=== PATIENT | female | born 1940 | race Caucasian/White ===

== ENCOUNTER 2016-09-06 23:31 | Inpatient (IN) | payer OTHER ==
[~2016-09-06] VITALS: Ht 157.5 cm; Wt 69.6 kg
[~2016-09-06 23:31] MED LIST: ALBUTEROL0.09 MG/A1 INH; AMOXICILLIN250 M3 PO; APIX2.5 PO; ASPIRIN CHILDRE81 MG PO; CALCIUM + D 6001 TAB PO; CARDIZEM CD 12120 MG PO; CEPHALEXIN500 M1 PO; CINNAMON500 MG PO; CLOPIDOGREL75 MG PO; COZAAR25 M1 PO; ELIQUIS5 M1 PO; ELIQUIS5 MG PO; FERROUS SULFAT325 M3 G TUBE; FLOVENT HF0.22 MG/Ac INH; GLUCOSAMINE & C1 CAP PO; KEFLEX500 MG PO; LANOXIN-DIGO0.125 MG PO; LASIX20 MG PO; LASIX40 MG PO; LEVAQUIN500 MG PO; LEVOTHYROXIN0.125 M1 PO; METOPROLOL SUC100 MG PO; MONTELUKAST SOD10 MG PO; MULTIVITAMIN1 TAB PO; NORVASC 5MG TAB5 MG PO; POTASSIUM GLUC595 MG PO; PREDNISONE 20MG20 MG PO; PULMICORT FLE180 MCG INH; SYNTHROID150 MCG PO; TOPROL XL 100100 MG PO; ULTRAM(MONOGRAP50 MG PO
--- NOTE | 2016-09-06 23:40 | ED DYSPNEA/ASTHMA COMPLAINT ---
History of Present Illness General Chief Complaint: Dyspnea (COPD, CHF, Other) Stated Complaint: DIFF BREATHING Source: patient, old records, EMS, W10 Exam Limitations: patient's age, confusion Vital Signs & Intake/Output Vital Signs & Intake/Output Vital Signs Date Time Temp Pulse Resp B/P Pulse O2 O2 Flow FiO2 Ox Delivery Rate 09/07 0348 96.5 110 22 123/81 100 Nasal 2.0L Cannula 09/07 0307 94.8 92 26 152/96 99 Nasal 2.0L Cannula 09/07 0300 99 Nasal 2.0L Cannula 09/07 0204 97.6 102 26 104/60 99 Nasal 2.0L Cannula 09/06 2336 96.0 107 20 143/83 99 Room Air ED Intake and Output 09/07 0000 09/06 1200 Intake Total Output Total Balance Patient 146 lb Weight Allergies Coded Allergies: STATINS (Intermediate, ACHEY HEAD TO TOE "PAIN ALL OVER BODY" 09/06/16) acetaminophen (Mild, ABDOMINAL PAIN 09/06/16) Reconcile Medications Acetaminophen 500 MG TABLET 975 MG G TUBE Q8H PAIN (Reported) Albuterol Sulfate (Ventolin Hfa) 90 MCG HFA.AER.AD 2 PUF INH Q4-6 PRN PRN SOB (Reported) Apixaban (Eliquis) 5 MG TABLET 1 TAB PO BID AFIB (Reported) Calcium Carbonate (Antacid) 200 MG CALCIUM (500 MG) TAB.CHEW 500 MG PO BID SUPPLEMENT (Reported) Cholecalciferol (Vitamin D3) 1,000 UNIT TABLET 1 TAB G TUBE DAILY SUPPLEMENT (Reported) Chondroitin Sulf/Glucosamine (Glucosamine & Chondroitin) 1 CAP CAP 1 CAP PO DAILY SUPPLEMENT (Reported) Reason to Stop at ADM: no alternative in the hospital Digoxin 125 MCG TABLET 65 MCG G TUBE DAILY HEART (Reported) HOLD IF HR LESS THAN 60 [DUONEB] SOB (Reported) X48 HRS, D/C ON 09/09/16. Ferrous Sulfate 325 MG (65 MG IRON) TABLET 325 MG G TUBE DAILY SUPPLEMENT ( Reported) Fluticasone Propionate (Flovent Hfa) 0.22 MG/Actuation EMERSON 2 PUFF INH BID COPD /ASTHMA (Reported) 220 MCG PER PUFF Furosemide 20 MG TABLET 1 TAB G TUBE DAILY CHF (Reported) Gabapentin 300 MG CAPSULE 1 CAP G TUBE QPM NEUROPATHY (Reported) Levothyroxine Sodium (Synthroid) 150 MCG TABLET 100 MCG PO DAILY HYPOTHYROID (Reported) Lorazepam (Ativan) 0.5 MG TABLET 1 TAB PO Q8H PRN ANXIETY (Reported) Metoprolol Tartrate 25 MG TABLET 0.5 TAB G TUBE BID HTN (Reported) Montelukast Sodium 10 MG TABLET 1 TAB PO DAILY ALLERGIES (Reported) Multivitamin (Multi-Delyn) 5 ML LIQUID 5 ML G TUBE DAILY SUPPLEMENT (Reported ) Triage Nurses Notes Reviewed? yes Onset: Gradual Duration: day(s):, waxing and waning Timing: recent history Severity: moderate Activities at Onset: none Prior Episodes/Possible Cause: occasional episodes Modifying Factors: Improves With: rest. Associated Symptoms: irregular breathing HPI: 76 yo woman h/o afib on eliquis and digoxin, presents with irregular breathing and dyspnea at the [facility]. She maintained normal 02 saturation. She is otherwise well. She took a neb and feels better. Past History Travel History Traveled to [place] past 21 day No Medical History Any Pertinent Medical History? 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 No Review of Systems Review of Systems Constitutional: Reports: no symptoms. EENTM: Reports: no symptoms. Respiratory: Reports: no symptoms. Cardiovascular: Reports: no symptoms. GI: Reports: no symptoms. Genitourinary: Reports: no symptoms. Musculoskeletal: Reports: no symptoms. Skin: Reports: no symptoms. Neurological/Psychological: Reports: no symptoms. Hematologic/Endocrine: Reports: no symptoms. Immunologic/Allergic: Reports: no symptoms. All Other Systems: Reviewed and Negative Physical Exam Physical Exam General Appearance: well developed/nourished, no apparent distress, alert, awake , comfortable Head: atraumatic, normal appearance Eyes: Bilateral: normal appearance. Ears, Nose, Throat: normal pharynx, normal ENT inspection Neck: normal inspection, supple, full range of motion Respiratory: normal breath sounds, chest non-tender, no respiratory distress, quiet respiration, lungs clear Cardiovascular: regular rate/rhythm Gastrointestinal: normal bowel sounds, soft, non-tender, no organomegaly Extremities: normal inspection, normal capillary refill, normal range of motion, no edema Neurologic/Psych: no motor/sensory deficits, awake, alert, oriented x 3 Skin: intact, normal color, warm/dry Core Measures ACS in differential dx? No Severe Sepsis Present: No Septic Shock Present: No Progress Differential Diagnosis: asthma, bronchitis, CHF, COPD, pneumonia Plan of Care: Orders Procedure Date/time Status Nothing by Mouth 09/07 B Active Patient Data 09/07 322 Active Saline Lock 09/07 214 Active Misc Message 09/07 214 Active ED Holding Orders 09/07 214 Active Vital Signs 09/07 214 Active Code Status 09/07 214 Active Admit to inpatient 09/07 213 Active TROPONIN LEVEL 09/07 210 Active EKG 09/07 210 Active BLOOD CULTURE 09/07 209 Active BLOOD CULTURE 09/07 0207 Active ARTERIAL BLOOD GAS (GEN) 09/07 0206 Complete TROPONIN LEVEL 09/06 2342 Complete PARTIAL THROMBOPLASTIN TIME 09/06 2342 Complete PROTHROMBIN TIME 09/06 2342 Complete DIGOXIN 09/06 2342 Complete COMPREHENSIVE METABOLIC PANEL 09/06 2342 Complete CBC WITHOUT DIFFERENTIAL 09/06 2341 Complete EKG 09/06 2342 Active Laboratory Tests 09/07/16 0245: pH 7.41, pCO2 32 L, pO2 101 H, HCO3 20 L, ABG O2 Sat (Measured) 97.0, P-50 ( Temp Corrected) Y, Carboxyhemoglobin 0.3 L, O2 Concentration % 2 LPM, Temperature 97.6, O2 Delivery Method N/C, Phlebotomy Draw Site RIGHT RADIAL 09/07/16 0038: Anion Gap 14, Estimated GFR 40 L, BUN/Creatinine Ratio 22.3, Glucose 129 H, Calcium 9.3, Total Bilirubin 0.7, AST 17, ALT 24, Alkaline Phosphatase 70, Troponin I 0.04, Total Protein 6.7, Albumin 3.5, Globulin 3.2, Albumin/Globulin Ratio 1.1, PT 20.3 H, INR 1.95 H, APTT 34, CBC w Diff NO MAN DIFF REQ, RBC 4.59, MCV 97.5, MCH 31.7 H, RDW 13.2, MPV 9.5, Gran % 72.1, Lymphocytes % 15.7 L, Monocytes % 7.1, Eosinophils % 4.9, Basophils % 0.2, Absolute Granulocytes 5.7, Absolute Lymphocytes 1.2, Absolute Monocytes 0.6, Absolute Eosinophils 0.4, Absolute Basophils 0, PUBS MCHC 32.5 L, Digoxin 0.5 L Microbiology 09/07 248 BLOOD: Blood Culture - RECD 09/07 237 BLOOD: Blood Culture - RECD Diagnostic Imaging: Viewed by Me: Radiology Read. Discussed w/RAD: Radiology Read. Radiology Impression: head ct... old right mca infarct CXR Impression: RIGHT ATELECTASIS VS PNEUMONIA Initial ED EKG: atrial fibrillation, no change from prior. Comments: PATIENT: CHACHO ALEXANDER PRESENT AGE: 76 PATIENT ACCOUNT NO: [id number] : 39 LOCATION: [facility] ORDERING PHYSICIAN: TRE MOFFETT MD SERVICE DATE: 09/07/16 EXAM TYPE: CAT - CT HEAD WO IV CONTRAST EXAMINATION: CT HEAD WITHOUT CONTRAST CLINICAL INFORMATION: Change in mental status COMPARISON: 10/19/2015 TECHNIQUE: Contiguous axial imaging was performed from the skull base to vertex without intravenous contrast. DLP: 529 mGy-cm. FINDINGS: There is no evidence of acute intracranial hemorrhage or territorial infarction. No abnormal mass effect or midline shift is seen. There is a change since the prior study, with new hypoattenuation involving the right MCA territory, most prominent in the right insular region extending superiorly. Peripheral hypoattenuation in the high right parietal lobe noted. The appearance is consistent with a chronic right MCA infarct, although Since 10/19/2015. Hypoattenuation extends along the right cerebral peduncle to the midbrain. Reddy to white matter differentiation is otherwise well preserved. Chronic right cerebellar hemisphere infarct. No extra-axial fluid collections are identified. No hydrocephalus. Proportional prominence of the ventricles and sulcal spaces is consistent with mild volume loss. There is no extraocular dilatation of the right lateral ventricle. The osseous structures and soft tissues are normal. The mastoid air cells and visualized portions of the paranasal sinuses are well aerated. IMPRESSION: No acute intracranial pathology. New appearance of a right MCA territory infarct since 10/19/2015. This does not have an acute appearance. DICTATED BY: JESE APARICIO MD DATE/TIME DICTATED:09/07/16301 SYSTEMS SPECIALIST:RICHA DATE/TIME TRANSCRIBED:09/07/16301 CONFIDENTIAL, DO NOT COPY WITHOUT APPROPRIATE AUTHORIZATION. <Electronically signed in Other Vendor System> SIGNED BY: JESE APARICIO MD 09/07 PATIENT: CHACHO ALEXANDER PRESENT AGE: 76 PATIENT ACCOUNT NO: [id number] : 39 LOCATION: [facility] ORDERING PHYSICIAN: TRE MOFFETT MD SERVICE DATE: 09/06/16 EXAM TYPE: RAD - XRY-PORTABLE CHEST XRAY EXAMINATION: XR PORTABLE CHEST CLINICAL INFORMATION: Dyspnea COMPARISON: 03/16/2016 TECHNIQUE: Portable view of the chest was obtained. FINDINGS: Left chest wall dual-lead pacer is unchanged. The lungs are well expanded. Increased hazy right basilar opacity. Limited visualization at the left lung base due to the prominence of the cardiac silhouette. No definite pleural effusion. No edema. No pneumothorax. The cardiomediastinal silhouette remains prominent. IMPRESSION: Increased hazy right basilar opacity could represent atelectasis or pneumonia. DICTATED BY: JESE APARICIO MD DATE/TIME DICTATED:09/07/1616 SYSTEMS SPECIALIST:RICHA DATE/TIME TRANSCRIBED:09/07/1616 CONFIDENTIAL, DO NOT COPY WITHOUT APPROPRIATE AUTHORIZATION. <Electronically signed in Other Vendor System> SIGNED BY: JESE APARICIO MD 09/07 0022 Departure Departure Disposition: STILL A PATIENT Condition: Stable Clinical Impression Primary Impression: Pneumonia Secondary Impressions: Hypothermia, Sepsis, Unresponsiveness Referrals: JESS OWUSU MD (PCP/Family) Departure Forms: Customer Survey General Discharge Information Comments 09/07/16, 2:12am... pt had episode of unresponsiveness, requiring sternal rub to awaken her.... vitals now stable... will check head ct. Pt also with pneumonia, dyspnea, elevated bun/cr ratio, not eating or drinking...Pt requires 02 support, iv fluids, abx. Admission Note Spoke With[facility] DE[facility]ADILLA[facility] Documentation of Exam: Documentation of any treatments & extenuating circumstances including Concerns Regarding Discharge (functional status, medication knowledge or non-compliance, living conditions, etc.) that warrant an admission rather than observation: pt with episode of unresponsiveness in context of her pneumonia, elevated bun/cr ratio. pt requires iv fluids, monitor, rule out, iv abx. pt also hypothermic, requiring warm blankets. Critical Care Note Critical Care Note Critical Care Time: 30-74 min
--- NOTE | 2016-09-06 23:43 | NUR ---
TRIAGE: BIBA FROM ECF, ECF REPORTING DIFF BREATHING W/ PERIODS OF APNEA S/P EATING DINNER TONIGHT. WAS GIVEN 1 DUONEB BY ECF THOUGH REPORTING LUNGS CTA. LUNGS CTA ON ARRIVAL, NO ACUTE RESP DISTRESS NOTED. O2:98%RA, ON 2LC FOR COMFORT, 100% 2LNC. PATIENT DENIES ANY COMPLAINTS AT THIS TIME. IV #22 PREHOSP RH. ALERT AND ORIENTED. PREHOSP FINGERSTICK: 163. HX L SIDE WEAKNESS FROM CVA, FULL ASSIST BASELINE.
[2016-09-06] MEDS ORDERED: ATIVAN0.5 M1 PO (23:54)
--- NOTE | 2016-09-06 23:55 | NUR ---
EKG DONE AND SHOWN TO DR. MOFFETT.
[2016-09-06] MEDS ORDERED: DUONEB NEB (23:57)
[2016-09-06] MEDS ORDERED: VENTOLIN HFA18 GM INH (23:59)
--- NOTE | 2016-09-06 23:59 | NUR ---
XRAY AT BEDSIDE.
[2016-09-07] MEDS ORDERED: DIGOXIN125 MCG G TUBE (00:09)
[2016-09-07] MEDS ORDERED: FUROSEMIDE20 M1 G TUBE (00:12)
[2016-09-07] MEDS ORDERED: METOPROLOL TART25 M1 G TUBE (00:13)
[2016-09-07] MEDS ORDERED: MULTI-DELYN5 ML G TUBE (00:14)
[2016-09-07] MEDS ORDERED: VITAMIN D31000 UNI2 G TUBE (00:15)
[2016-09-07] MEDS ORDERED: GABAPENTIN300 M2 G TUBE (00:16)
[2016-09-07] MEDS ORDERED: ANTACID200 MG PO (00:17)
[2016-09-07] MEDS ORDERED: ACETAMINOPHEN500 M4 G TUBE (00:18)
--- NOTE | 2016-09-07 00:22 | RADIOLOGY REPORT ---
EXAMINATION: XR PORTABLE CHEST CLINICAL INFORMATION: Dyspnea COMPARISON: 03/16/2016 TECHNIQUE: Portable view of the chest was obtained. FINDINGS: Left chest wall dual-lead pacer is unchanged. The lungs are well expanded. Increased hazy right basilar opacity. Limited visualization at the left lung base due to the prominence of the cardiac silhouette. No definite pleural effusion. No edema. No pneumothorax. The cardiomediastinal silhouette remains prominent. IMPRESSION: Increased hazy right basilar opacity could represent atelectasis or pneumonia.
--- NOTE | 2016-09-07 00:41 | NUR ---
PATIENT DIFFICULT STICK, BLOODWORK OBTAINED AND SENT TO LAB (SHANNON, SHANEKA HERNADEZ, BLUE).
[2016-09-07 00:51] LABS: ABSOLUTE BASOPHIL COUNT 0 /CUMM (0.0-0.2); ABSOLUTE EOSINOPHIL COUNT 0.4 /CUMM (0.0-0.7); ABSOLUTE GRANULOCYTE CT 5.7 /CUMM (1.4-6.5); ABSOLUTE LYMPH COUNT 1.2 /CUMM (1.2-3.4); ABSOLUTE MONOCYTE COUNT 0.6 /CUMM (0.10-0.60); BASOPHIL % 0.2 % (0.0-2.0); EOSINOPHIL % 4.9 % (0-5); GRANULOCYTE % 72.1 % (42.2-75.2); HEMATOCRIT 44.7 % (37-47); MEAN CORPUSCULAR HGB 31.7 PG (27.0-31.0); MEAN CORPUSCULAR HGB CONC 32.5 G/DL (33.0-37.0); MEAN CORPUSCULAR VOLUME 97.5 FL (81.0-99.0); MEAN PLATELET VOLUME 9.5 FL (7.4-10.4); PLATELET COUNT 201 /CUMM (130-400); RBC DISTRIBUTION WIDTH 13.2 % (11.5-14.5); RED BLOOD CELL CT 4.59 /CUMM (4.20-5.40); WHITE BLOOD CELL COUNT 7.9 /CUMM (4.8-10.8)
[2016-09-07 01:00] LABS: PT 20.3 SEC (9.4-12.5); PTT 34 SEC (25-37)
--- NOTE | 2016-09-07 01:58 | NUR ---
ALL RESULTS OBTAINED, AWAITING POC FROM .
--- NOTE | 2016-09-07 02:09 | NUR ---
NS 500ML INFUSING AT PRESENT PER EMAR. TOLERATING WELL. MD INFORMED THAT PATIENT NOTED W/ APPROX 15 SECONDS UNRESPONSIVNESS TO STERNAL RUB, PATIENT THEN NOTED W/ SPONTANEOUS ALERTNESS TO BASELINE W/ FREQUENT MOANING. MD AT BEDSIDE W/ THIS RN FOR REEVAL/ DISCUSSION OF POC AND ADMISSION W/ FAMILY AND PATIENT. PATIENT RR 26, AFEBRILE. O2:99%RA, HR: 102 IRREGULAR W/ NO P-WAVES NOTED, INTERMITTENT PVS NOTED.
--- NOTE | 2016-09-07 02:46 | NUR ---
HOSPITAL IV EST #22 RIGHT FOREARM. BOOD CULTURES AND REPEAT TROP OBTAINED AND SENT TO LAB. ABD OBTAINED BY RESP THERAPIST SURAJ. PATIENT BEING TAKEN TO CT BY STRETCHER.
--- NOTE | 2016-09-07 03:07 | NUR ---
RETURNED FROM CT BY STRETCHER. ROCEPHIN INFUSING PER EMAR. TOLERATING WELL. TEMP 94.8, AWARE. WARM BLANKETS APPLIED.
--- NOTE | 2016-09-07 03:08 | CT SCAN REPORT ---
EXAMINATION: CT HEAD WITHOUT CONTRAST CLINICAL INFORMATION: Change in mental status COMPARISON: 10/19/2015 TECHNIQUE: Contiguous axial imaging was performed from the skull base to vertex without intravenous contrast. DLP: 529 mGy-cm. FINDINGS: There is no evidence of acute intracranial hemorrhage or territorial infarction. No abnormal mass effect or midline shift is seen. There is a change since the prior study, with new hypoattenuation involving the right MCA territory, most prominent in the right insular region extending superiorly. Peripheral hypoattenuation in the high right parietal lobe noted. The appearance is consistent with a chronic right MCA infarct, although Since 10/19/2015. Hypoattenuation extends along the right cerebral peduncle to the midbrain. Reddy to white matter differentiation is otherwise well preserved. Chronic right cerebellar hemisphere infarct. No extra-axial fluid collections are identified. No hydrocephalus. Proportional prominence of the ventricles and sulcal spaces is consistent with mild volume loss. There is no extraocular dilatation of the right lateral ventricle. The osseous structures and soft tissues are normal. The mastoid air cells and visualized portions of the paranasal sinuses are well aerated. IMPRESSION: No acute intracranial pathology. New appearance of a right MCA territory infarct since 10/19/2015. This does not have an acute appearance.
--- NOTE | 2016-09-07 03:16 | NUR ---
EKG IN PROGRESS. WARM BLANKETS APPLIED PER MD, WILL RECHECK TEMP AT 0345.
--- NOTE | 2016-09-07 03:27 | NUR ---
MD GUERIN AWARE TWO SST TUBES OBTAINED FOR REPEAT TROP ARE "GROSSLY HEMOLYZED" PER LAB. PER MD GUERIN, CAN WAIT TO REDRAW AT THIS TIME.
--- NOTE | 2016-09-07 03:38 | NUR ---
2ND. EKG DONE AND SHOWN TO DR. MOFFETT.
--- NOTE | 2016-09-07 03:48 | NUR ---
MD RICHARDSON AT BEDSIDE FOR EVAL. CURRENT TEMP 96.5 S/P WARM BLANKETS X 30 MINUTES.
--- NOTE | 2016-09-07 03:52 | History & Physical ---
MARI PDAILLA,[facility] 09/07/16 0351: General Information and HPI MD Statement: I have seen and personally examined CHACHO FORBES and documented this H&P. The patient is a 76 year old F who presented with a patient stated chief complaint of shortness of breath and apneic spells. 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 Patient is minimally verbal and provides little information, therefore, most of the history was obtained by calling [facility]. Patient was reported by roommate who noticed that the patient was experiencing shortness of breath. It is also reported that the patient daughter had earlier complained patient was not looking well. Nursing staff at the facility reported that patient had an apneic spell, became unresponsive and needed sternal rub. No reports of fever chills or recent infection, is given by the facility nursing staff. While in the ED, patient had another episode of unresponsiveness which not respond to sternal rub, and spontaneously resolved within a few seconds. At baseline patient is full assist due to left-sided paralysis, with intact mentation and verbally communicates effectively and is on nectar puree diet. Allergies/Medications Allergies: Coded Allergies: STATINS (Intermediate, ACHEY HEAD TO TOE "PAIN ALL OVER BODY" 09/06/16) acetaminophen (Mild, ABDOMINAL PAIN 09/06/16) Home Med list Acetaminophen 500 MG TABLET 975 MG G TUBE Q8H PAIN (Reported) Albuterol Sulfate (Ventolin Hfa) 90 MCG HFA.AER.AD 2 PUF INH Q4-6 PRN PRN SOB (Reported) Apixaban (Eliquis) 5 MG TABLET 1 TAB PO BID AFIB (Reported) Calcium Carbonate (Antacid) 200 MG CALCIUM (500 MG) TAB.CHEW 500 MG PO BID SUPPLEMENT (Reported) Cholecalciferol (Vitamin D3) 1,000 UNIT TABLET 1 TAB G TUBE DAILY SUPPLEMENT (Reported) Chondroitin Sulf/Glucosamine (Glucosamine & Chondroitin) 1 CAP CAP 1 CAP PO DAILY SUPPLEMENT (Reported) Reason to Stop at ADM: no alternative in the hospital Digoxin 125 MCG TABLET 65 MCG G TUBE DAILY HEART (Reported) HOLD IF HR LESS THAN 60 [DUONEB] SOB (Reported) X48 HRS, D/C ON 09/09/16. Ferrous Sulfate 325 MG (65 MG IRON) TABLET 325 MG G TUBE DAILY SUPPLEMENT ( Reported) Fluticasone Propionate (Flovent Hfa) 0.22 MG/Actuation EMERSON 2 PUFF INH BID COPD /ASTHMA (Reported) 220 MCG PER PUFF Furosemide 20 MG TABLET 1 TAB G TUBE DAILY CHF (Reported) Gabapentin 300 MG CAPSULE 1 CAP G TUBE QPM NEUROPATHY (Reported) Levothyroxine Sodium (Synthroid) 150 MCG TABLET 100 MCG PO DAILY HYPOTHYROID (Reported) Lorazepam (Ativan) 0.5 MG TABLET 1 TAB PO Q8H PRN ANXIETY (Reported) Metoprolol Tartrate 25 MG TABLET 0.5 TAB G TUBE BID HTN (Reported) Montelukast Sodium 10 MG TABLET 1 TAB PO DAILY ALLERGIES (Reported) Multivitamin (Multi-Delyn) 5 ML LIQUID 5 ML G TUBE DAILY SUPPLEMENT (Reported ) Past History Travel History Traveled to [place] past 21 day No Medical History Neurological: CVA, cva-left sided paralysis EENT: NONE Cardiovascular: AFIB, CAD, CHF, hypertension, hyperlipidemia, myocardial infarction, PCI to LAD and LCx with JUANJOSE in 2007 Respiratory: asthma Gastrointestinal: G-TUBE Hepatic: NONE Renal: chronic kidney disease Musculoskeletal: MUSCLE WEAKNESS Psychiatric: NONE Endocrine: hypothyroidism Blood Disorders: anemia Cancer(s): NONE 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 Ambulation: independent, cane Review of Systems Review of Systems Constitutional: Denies: chills, diaphoresis, fever. Exam & Diagnostic Data Last 24 Hrs of Vital Signs/I&O Vital Signs Date Time Temp Pulse Resp B/P Pulse O2 O2 Flow FiO2 Ox Delivery Rate 09/07 605 97.5 103 18 119/77 99 Nasal 2.0L Cannula 09/07 0435 97.3 109 22 98/53 95 Nasal 2.0L Cannula 09/07 0348 96.5 110 22 123/81 100 Nasal 2.0L Cannula 09/07 0307 94.8 92 26 152/96 99 Nasal 2.0L Cannula 09/07 0300 99 Nasal 2.0L Cannula 09/07 0204 97.6 102 26 104/60 99 Nasal 2.0L Cannula 09/06 2336 96.0 107 20 143/83 99 Room Air Intake & Output 09/07 1600 09/07 0800 09/07 0000 Intake Total 510 Output Total Balance 510 Intake, IV 510 Patient 66.451 kg Weight Physical Exam General Appearance Alert, Mild Distress, orineted to person and place Skin No Significant Lesion HEENT Atraumatic, Dry mucous membranes Neck Supple, +2 Carotid Pulse wo Bruit Lymphatic Cervical nl Cardiovascular Regular Rate, Normal S1, Normal S2 Lungs Clear to Auscultation Abdomen Normal Bowel Sounds, Soft, No Tenderness Neurological left-sided weakness noted on upper and lower extremities. 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 Impression * Dyspnea : Atelectasis versus aspiration pneumonia as possible cause of patient dyspnea. Hypothyroidism could be possible cause. Cardiac etiology ACS versus worsening CHF. * Apneic spells: Drug-induced? Patient has had history of stroke, however was right MCA and not brainstem. CTA of head negative for any acute stroke however rule out brainstem pathology will require MRI. * Hypothermia (transient) Plan * Admit to telemetry for close monitoring * Will keep nothing by mouth for now, pending swallow eval * Will start Unasyn for possible aspiration * Urine culture, sputum culture, and blood cultures * Will obtain troponins to rule out ACS * Will give to hydration of 500 ML bag of normal saline 75ml/hr * Will hold off Lasix and metoprolol drop in blood pressure * Wi'll hold off digoxin for now and await cardiology recommendation * Possible defibrillator interrogation * Will obtain cardiology As Ranked By This Provider Problem List: 1. Altered mental status Core Measures/Miscellaneous Acute Coronary Syndrome ACS Diagnosis: No Cerebrovascular Accident CVA/TIA Diagnosis: No Congestive Heart Failure CHF Diagnosis: No Venous Thromboembolism VTE Risk Factors: Age > 40 VTE Prophylaxis Ordered Inpt: Pharm- Eliquis No Mech VTE prophylaxis d/t: No contraindications No VTE Pharm Prophylaxis d/t: No contraindications VTE Diagnosis: No VTE Type: NONE VTE Confirmed by (Test): NONE Severe Sepsis Severe Sepsis Present: No Septic Shock Septic Shock Present: No Miscellaneous Documentation Attending Case Discussed With: MD CELINA RICHARDSON. 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 Per RN at [place], patient has been eating by mouth nectar thick liquids and ground food. Patient mumbling words, speech unclear, but she understands and responds to few questions appropriately. Hypothermic in ER, tachycardic, borderline BP, sats 99% on 2L. She appears very dry, no leukocytosis, CXR s/o right basilar opacity. Head CT old infarct. While in ER, she had an episode of unresponsiveness - no response to sternal rub, but she woke up few seconds later. She was not connected to the monitor so unclear what rhythm she was in. Last echo (January 2016): EF 20-25%. EKG: Afib, PVCs. Admitting to Telemetry for cardiac evaluation, serial EKG and troponin, Echo, Cardio evaluation and possible AICD interrogation. Digoxin levels are low. Holding digoxin, Lasix and metoprolol until Cardio eval. Panculture, gentle IV fluids, IV Unasyn for aspiration pneumonia. NPO, swallow eval in AM. TRC nebs and incentive spirometry. DVT ppx Eliquis. DNR/JavierBrandon MEHTAKATHYGABE 09/07/16 1028: Resident Review Statement Resident Statement: examined this patient, discussed with phd internship, agreed with phd internship, reviewed EMR data (avail), discussed with nursing, reviewed images Other Findings: Mrs. Forbes is a 76-year-old lady with a PMH of atrial fibrillation on Eliquis, CAD, CHF, HTN, HLD, [place] with PCI to LAD and left circumflex (2007), chronic kidney disease, gastric tube secondary to chronic dysphagia was twice a day a from [facility] due to noticeable dyspnea at the facility. Records indicated from EMS: Patient experienced an episode of apnea with difficulty to arousal requiring sternal rub. No indication at this time of recent illnesses, changes in medication, fevers, chills. At her baseline she is a dependent of full assist, feeding via oral pure with records indicating previously on gastric feeding. VS: BP 143/83, HR 107, RR 20, SPO2 99% on 2 LNC, T 96.0 Pertinent labs: WBC 7.9, H&H 14.6/44.7 sodium 145, BUN/CR 29/1.3, glucose 129 INR: 1.95 Serial troponins: 0.04, 0.05 UA: Pending Digoxin: 0.5L CXR: Increased hazy right basilar opacity could represent atelectasis or pneumonia Head CT: No acute intracranial pathology. New appearance of a right MCA territory infarct since 10/19/2015. This does not have an acute appearance. Problem list: 1. Altered mental status: DDX includes infectious etiologies versus TIA/CVA 2. SIRS criteria 3. Pneumonia 4. A. fib 5. History of dysphagia 6. HFrEF: Echocardiogram January 2016 EF 20-25%, abnormal septal motion consistent with LBBB. RV systolic pressure 50 mmHg Plan: * Admit to telemetry for continuous cardiac monitoring. Serial EKG/troponin at 700 hours, 1300 hrs. * Obtain a repeat echocardiogram and have cardiology follow patient. Digoxin held at this time * Follow up blood, urine, sputum cultures, lactic acid. We'll start the patient on Unasyn for DDX of aspiration pneumonia * Restart patient's metoprolol once blood pressure is more stable * Nothing by mouth at this time. Follow-up swallow evaluation for recommendations on fluid/solids consistency * VT prophylaxis: Eliquis * Diet: Nothing by mouth at this time pending swallow evaluation * CODE STATUS: DNR/DNI per transfer records AM team: Follow-up magnesium, phosphorus, proBNP
--- NOTE | 2016-09-07 04:16 | NUR ---
PATIEN REPORTING NEED TO MAKE BM. ASSISTED ONTO BEDPAN BY THIS RN, AMANDO FORRESTER AND KENN FORRESTER.
--- NOTE | 2016-09-07 04:31 | NUR ---
PATIENT MADE MODERATE AMOUNT FORMED LIGHT BROWN STOOL INTO BEDPAN. ALERT AND SPEAKING W/ CLEARER SPEECH AT THIS TIME, REPORTING R SHOULDER PAIN. PILLOW PLACED FOR SUPPORT UNDER R SHOULDER. PATIENT CHANGED FROM R SIDE LYING TO L SIDE LYING.
--- NOTE | 2016-09-07 06:45 | NUR ---
NS INFUING AT 75ML/HR PER EMAR. TOLERATING WELL. PATIENT SLEEPING SOUNDLY AT THIS TIME. HR:103 AFIB ON MONITOR.
--- NOTE | 2016-09-07 06:55 | Admission Certification ---
Admission Certification Certification Statement - As attending physician, I certify that at the time of - admission, based on clinical presentation, severity of - symptoms, need for further diagnostic testing and - therapeutic interventions, and risk of adverse outcomes - without in-hospital treatment, in my clinical assessment, - this patient requires an acute hospital stay for a minimum - of two nights or longer. I have also considered psychsocial - factors such as support system, advanced age, financial - issues, cognitive issues, and failed out-patient treatments, - past re-admission history, safety of patient, and lack of - compliance as applicable. Specific rationale supporting this admission is: Unresponsive episode, aspiration pneumonia.
--- NOTE | 2016-09-07 07:02 | NUR ---
UNASYN 3G INFUSING AT 200ML/HR PER EMAR. TOLERATING WELL. REPEAT BLOODWORK IN PROGRESS BY KENN HOUSE
--- NOTE | 2016-09-07 07:07 | NUR ---
2AM TROP REDRAWN AND SENT TO LAB.
--- NOTE | 2016-09-07 09:08 | NUR ---
ROAD BUILDER FROM [place] # [phone] ERICK RATLIFF CALLED STATING PT CAN BE TREATED WITH IVF/IV ANTIBIOTICS AT [place], PHONE NUMBER GIVEN TO RESIDENT ALEX # [address] BUILDER REGARDING PLAN OF CARE/DISPOSITION.
--- NOTE | 2016-09-07 10:29 | NUR ---
PT SLEEPING, REPOSITIONED ON TO RIGHT SIDE (FROM LEFT), PT MOANS ON OCCASSION BUT IS NOT OPENING EYES OR VERBAL. IVF'S CHANGED TO D5NS AT 75ML/HR ORDERED. VITALS REMAIN STABLE, O2 99% ON 2L NC. AWAITING BED ASSIGNMENT FOR ADMISSION OR DISPOSTION FROM [place]/HOUSE STAFF.
--- NOTE | 2016-09-07 10:38 | NUR ---
PHARMACY CALLED REGARDING PO MEDICATIONS ORDERED AT 1018 THIS AM, PT DOES HAVE G-TUBE, SPOKE WITH PHARMACIST LYLE WHO WILL CONTACT RESIDENT ALEX # [id number].
--- NOTE | 2016-09-07 11:21 | NUR ---
SPOKE WITH PHARMACIST, MEDS CRUSHED AND DILUTED ORDERED, GIVEN VIA G-TUBE WITHOUT DIFFICULTY. PT SLEEPING COMFORTABLY, REMAINS UNRESPONSIVE AND NON-VERBAL AT THIS TIME.
--- NOTE | 2016-09-07 11:28 | Cons- Cardiology ---
General Information and HPI Consulting Request Date of Consult: 09/07/16 Requested By: SAMUEL MARVIN MD Reason for Consult: afib, CHF Source of Information: old records Exam Limitations: unable to give history History of Present Illness: This is a 76-year-old female with a past medical history of ischemic cardiomyopathy, CHF, aortic stenosis, atrial fibrillation on anticoagulation, CAD with PCI in 2007 (LAD/LCx), myocardial infarct by nuclear imaging, choledocholithiasis/cholangitis, AICD, CKD, acute CVA (03/2016) s/p PEG tube, and statin intolerance who was sent to [facility] from [facility] reported decrease in mental status and possible episode of unresponsiveness/apnea. On my interview with the patient she was unable to provide any history in the HPI is obtained from the medical record. There are some reports that the patient was noticed to be tachypneic. On my interview with the patient she was minimally responsive but intermittently following simple commands. Per reports she was taking oral pured diet at [place]. Allergies/Medications Allergies: Coded Allergies: STATINS (Intermediate, ACHEY HEAD TO TOE "PAIN ALL OVER BODY" 09/06/16) acetaminophen (Mild, ABDOMINAL PAIN 09/06/16) Home Med List: Acetaminophen 500 MG TABLET 975 MG G TUBE Q8H PAIN (Reported) Albuterol Sulfate (Ventolin Hfa) 90 MCG HFA.AER.AD 2 PUF INH Q4-6 PRN PRN SOB (Reported) Apixaban (Eliquis) 5 MG TABLET 1 TAB PO BID AFIB (Reported) Calcium Carbonate (Antacid) 200 MG CALCIUM (500 MG) TAB.CHEW 500 MG PO BID SUPPLEMENT (Reported) Cholecalciferol (Vitamin D3) 1,000 UNIT TABLET 1 TAB G TUBE DAILY SUPPLEMENT (Reported) Chondroitin Sulf/Glucosamine (Glucosamine & Chondroitin) 1 CAP CAP 1 CAP PO DAILY SUPPLEMENT (Reported) Reason to Stop at ADM: no alternative in the hospital Digoxin 125 MCG TABLET 65 MCG G TUBE DAILY HEART (Reported) HOLD IF HR LESS THAN 60 [DUONEB] SOB (Reported) X48 HRS, D/C ON 09/09/16. Ferrous Sulfate 325 MG (65 MG IRON) TABLET 325 MG G TUBE DAILY SUPPLEMENT ( Reported) Fluticasone Propionate (Flovent Hfa) 0.22 MG/Actuation EMERSON 2 PUFF INH BID COPD /ASTHMA (Reported) 220 MCG PER PUFF Furosemide 20 MG TABLET 1 TAB G TUBE DAILY CHF (Reported) Gabapentin 300 MG CAPSULE 1 CAP G TUBE QPM NEUROPATHY (Reported) Levothyroxine Sodium (Synthroid) 150 MCG TABLET 100 MCG PO DAILY HYPOTHYROID (Reported) Lorazepam (Ativan) 0.5 MG TABLET 1 TAB PO Q8H PRN ANXIETY (Reported) Metoprolol Tartrate 25 MG TABLET 0.5 TAB G TUBE BID HTN (Reported) Montelukast Sodium 10 MG TABLET 1 TAB PO DAILY ALLERGIES (Reported) Multivitamin (Multi-Delyn) 5 ML LIQUID 5 ML G TUBE DAILY SUPPLEMENT (Reported ) Current Medications: Current Medications Sig/Jake Start time Last Medication Dose Route Stop Time Status Admin Acetaminophen 650 MG Q6P PRN 09/07 0715 AC PO Ampicillin Sodium/ 0 .STK-MED ONE 09/07 0655 DC Sulbactam Sodium .ROUTE Ampicillin Sodium/ 3,000 MG Q6 09/07 0600 AC 09/07 Sulbactam Sodium IV 0701 Sodium Chloride 100 ML Apixaban 5 MG BID 09/07 1018 AC PO Azithromycin 500 MG ONCE ONE 09/07 0215 DC 09/07 Sodium Chloride 250 ML IV 09/07 0314 0319 Calcium Carbonate 500 MG BID 09/07 1018 AC PO Ceftriaxone Sodium 0 .STK-MED ONE 09/07 0254 DC .ROUTE Ceftriaxone Sodium 1,000 MG ONCE ONE 09/07 0215 DC 09/07 IV 09/07 0216 0305 Cholecalciferol 1,000 IU DAILY 09/07 1019 AC PO Dextrose/Sodium 1,000 ML ONCE ONE 09/07 0945 AC 09/07 Chloride IV 09/07 2304 1000 Fluticasone 2 PUF BID 09/07 1022 AC Propionate INH Levothyroxine Sodium 0.1 MG DAILY AC 09/07 1038 AC PO Levothyroxine Sodium 0.1 MG DAILY 09/07 1023 DC PO Lorazepam 0.5 MG Q8H PRN 09/07 1030 AC PO 09/14 1029 Montelukast Sodium 10 MG QPM 09/07 2200 AC PO Oxycodone/ 1 TAB Q6P PRN 09/07 0815 DC Acetaminophen PO Oxycodone/ 2 TAB Q6P PRN 09/07 0815 DC Acetaminophen PO Sodium Chloride 500 ML .Q6H40M 09/07 0515 AC 09/07 IV 09/07 1154 0645 Sodium Chloride 500 ML BOLUS ONE 09/07 0200 DC 09/07 IV 09/07 0259 0209 Review of Systems Review of Systems: Unable to obtain Past History Travel History Traveled to [place] past 21 day No Medical History Neurological: CVA, cva-left sided paralysis EENT: NONE Cardiovascular: AFIB, CAD, CHF, hypertension, hyperlipidemia, myocardial infarction, PCI to LAD and LCx with JUANJOSE in 2007 Respiratory: asthma Gastrointestinal: G-TUBE Hepatic: NONE Renal: chronic kidney disease Musculoskeletal: MUSCLE WEAKNESS Psychiatric: NONE Endocrine: hypothyroidism Blood Disorders: anemia Cancer(s): NONE 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 Ambulation: independent, cane Exam & Diagnostic Data Vital Signs and I&O Vital Signs Date Time Temp Pulse Resp B/P Pulse O2 O2 Flow FiO2 Ox Delivery Rate 09/07 1031 96.8 95 18 100/63 99 Nasal 2.0L Cannula 09/07 0606 97.5 103 18 119/77 99 Nasal 2.0L Cannula 09/07 0435 97.3 109 22 98/53 95 Nasal 2.0L Cannula 09/07 0348 96.5 110 22 123/81 100 Nasal 2.0L Cannula 09/07 0307 94.8 92 26 152/96 99 Nasal 2.0L Cannula 09/07 0300 99 Nasal 2.0L Cannula 09/07 0204 97.6 102 26 104/60 99 Nasal 2.0L Cannula 09/06 2336 96.0 107 20 143/83 99 Room Air Intake & Output 09/07 1600 09/07 0800 09/07 0000 09/06 1600 09/06 0800 09/06 0000 Intake Total 510 Output Total Balance 510 Intake, IV 510 Patient 146 lb Weight Physical Exam: General: Minimally responsive without obvious distress Eyes: No obvious scleral icterus. HEENT: No jugular venous distention or abnormal jugular venous pulsations. Cardiovascular: Normal intensity S1/S2. Irregular. One out of 6 systolic murmur. ICD noted. Respiratory: Decreased air entry on the right Abdomen: Soft, with no guarding Musculoskeletal: No clubbing or cyanosis noted, no edema Skin: Warm Neurologic: Limited exam, decreased spontaneous movements on the left Labs/Hardy Results: Laboratory Tests 09/07 09/07 09/07 0704 0245 0038 Blood Gas pH (7.35 - 7.45 PH) 7.41 pCO2 (35 - 45 TORR) 32 L pO2 (80 - 100 TORR) 101 H HCO3 (21 - 28 MEQ/L) 20 L ABG O2 Sat (Measured) (>96.0 %) 97.0 P-50 (Temp Corrected) Y Carboxyhemoglobin (1.5 - 5.0 %) 0.3 L O2 Concentration % 2 LPM Temperature (97.0 - 100.0 FARH) 97.6 O2 Delivery Method N/C Chemistry Sodium (137 - 145 mmol/L) 145 Potassium (3.5 - 5.1 mmol/L) 4.7 Chloride (98 - 107 mmol/L) 105 Carbon Dioxide (22 - 30 mmol/L) 26 Anion Gap (5 - 16) 14 BUN (7 - 17 mg/dL) 29 H Creatinine (0.5 - 1.0 mg/dL) 1.3 H Estimated GFR (>60 ml/min) 40 L BUN/Creatinine Ratio (7 - 25 %) 22.3 Glucose (65 - 99 mg/dL) 129 H Calcium (8.4 - 10.2 mg/dL) 9.3 Phosphorus (2.5 - 4.5 mg/dL) Pending Magnesium (1.6 - 2.3 mg/dL) Pending Total Bilirubin (0.2 - 1.3 mg/dL) 0.7 AST (14 - 36 U/L) 17 ALT (9 - 52 U/L) 24 Alkaline Phosphatase (<127 U/L) 70 Troponin I (< 0.11 ng/ml) 0.05 0.04 [id number] Pept (<125 pg/mL) Pending Total Protein (6.3 - 8.2 g/dL) 6.7 Albumin (3.5 - 5.0 g/dL) 3.5 Globulin (1.9 - 4.2 gm/dL) 3.2 Albumin/Globulin Ratio (1.1 - 2.2 %) 1.1 Coagulation PT (9.4 - 12.5 SEC) 20.3 H INR (0.90 - 1.19) 1.95 H APTT (25 - 37 SEC) 34 Hematology CBC w Diff NO MAN DIFF REQ WBC (4.8 - 10.8 /CUMM) 7.9 RBC (4.20 - 5.40 /CUMM) 4.59 Hgb (12.0 - 16.0 G/DL) 14.6 Hct (37 - 47 %) 44.7 MCV (81.0 - 99.0 FL) 97.5 MCH (27.0 - 31.0 PG) 31.7 H RDW (11.5 - 14.5 %) 13.2 Plt Count (130 - 400 /CUMM) 201 MPV (7.4 - 10.4 FL) 9.5 Gran % (42.2 - 75.2 %) 72.1 Lymphocytes % (20.5 - 51.1 %) 15.7 L Monocytes % (1.7 - 9.3 %) 7.1 Eosinophils % (0 - 5 %) 4.9 Basophils % (0.0 - 2.0 %) 0.2 Absolute Granulocytes (1.4 - 6.5 /CUMM) 5.7 Absolute Lymphocytes (1.2 - 3.4 /CUMM) 1.2 Absolute Monocytes (0.10 - 0.60 /CUMM) 0.6 Absolute Eosinophils (0.0 - 0.7 /CUMM) 0.4 Absolute Basophils (0.0 - 0.2 /CUMM) 0 PUBS MCHC (33.0 - 37.0 G/DL) 32.5 L Miscellaneous Phlebotomy Draw Site RIGHT RADIAL Toxicology Digoxin (0.8 - 2.0 ng/mL) 0.5 L Diagnostic Data EKG Results Tracing was personally reviewed and shows atrial fibrillation at a rate of 106 bpm with mild interventricular conduction delay CXR Results Increased hazy right basilar opacity could represent atelectasis or pneumonia. Other Results No acute intracranial pathology. New appearance of a right MCA territory infarct since 10/19/2015. This does not have an acute appearance. Assessment/Plan Assessment/Plan 1. Altered mental status 2. Possible pneumonia, question aspiration 3. CKD 4. Atrial fibrillation on Eliquis 5. Acute CVA 03/2016 (while off AC for GI procedure) tx at [place], s/p PEG tube for dysphagia 6. History of systolic congestive heart failure with myocardial scar/ischemic cardiomyopathy 7. CAD with PCI to the LAD/LCx 2007 8. AICD in situ ([employer]) 9. History of choledocholithiasis/cholangitis 10. History of statin intolerance Suspect the patient's current decreased mental status may be due to encephalopathy, ?infection/possible pneumonia. Head CT without new event (prior CVA noted). No evidence of decompensated CHF at this time, agree with gentle hydration. Antibiotics per the medical team. Would continue full anticoagulation without interruption, if unable to give Eliquis then bridge with Heparin or Lovenox. No evidence of digoxin toxicity, would resume for rate control. Resume low-dose beta katina as BP tolerates. Had previously been on low-dose ARB therapy but currently not listed on her med rec. Doubt any acute new arrhythmic events but I will arrange to have her AICD interrogated. Echocardiogram has been ordered and I will follow-up those results. Troponins are within normal limits. ACS is not currently suspected. Aneesh Hall MD [facility] Consult Acknowledgment - Thank you for your consult request.
--- NOTE | 2016-09-07 11:29 | NUR ---
MOVED TO ROOM # 20, REPORT GIVEN TO OSCAR ERWIN.
--- NOTE | 2016-09-07 12:47 | NUR ---
SPEECH THERAPY: ORDERS FOR SWALLOW EVAL RECEIVED, CHART REVIEWED AND D/W RN AND MD. PER DR. DUARTE, CANCEL SWALLOW EVAL PT IS NOT SUFFICIENTLY ALERT/AWAKE TO PARTICIPATE. PT HAD BEEN EATING GROUND MECH SOFT AND NECTAR THICK LIQUIDS AT THE [facility] BUT IS CURRENTLY NPO. SHE HAS A G-TUBE WHICH MAY BE USED FOR FEEDING UNTIL PT IS ABLE TO PARTICIPATE IN SWALLOW EVAL/PO TRIALS.
--- NOTE | 2016-09-07 13:00 | Cons- Pulmonary ---
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 Patient is minimally verbal and provides little information, therefore, most of the history was obtained by calling [facility]. Patient was reported by roommate who noticed that the patient was experiencing shortness of breath. It is also reported that the patient daughter had earlier complained patient was not looking well. Nursing staff at the facility reported that patient had an apneic spell, became unresponsive and needed sternal rub. No reports of fever chills or recent infection, is given by the facility nursing staff. While in the ED, patient had another episode of unresponsiveness which not respond to sternal rub, and spontaneously resolved within a few seconds. At baseline patient is full assist due to left-sided paralysis, with intact mentation and verbally communicates effectively and is on nectar puree diet. Allergies/Medications Allergies: Coded Allergies: STATINS (Intermediate, ACHEY HEAD TO TOE "PAIN ALL OVER BODY" 09/06/16) acetaminophen (Mild, ABDOMINAL PAIN 09/06/16) Home Med List: Acetaminophen 500 MG TABLET 975 MG G TUBE Q8H PAIN (Reported) Albuterol Sulfate (Ventolin Hfa) 90 MCG HFA.AER.AD 2 PUF INH Q4-6 PRN PRN SOB (Reported) Apixaban (Eliquis) 5 MG TABLET 1 TAB PO BID AFIB (Reported) Calcium Carbonate (Antacid) 200 MG CALCIUM (500 MG) TAB.CHEW 500 MG PO BID SUPPLEMENT (Reported) Cholecalciferol (Vitamin D3) 1,000 UNIT TABLET 1 TAB G TUBE DAILY SUPPLEMENT (Reported) Chondroitin Sulf/Glucosamine (Glucosamine & Chondroitin) 1 CAP CAP 1 CAP PO DAILY SUPPLEMENT (Reported) Reason to Stop at ADM: no alternative in the hospital Digoxin 125 MCG TABLET 65 MCG G TUBE DAILY HEART (Reported) HOLD IF HR LESS THAN 60 [DUONEB] SOB (Reported) X48 HRS, D/C ON 09/09/16. Ferrous Sulfate 325 MG (65 MG IRON) TABLET 325 MG G TUBE DAILY SUPPLEMENT ( Reported) Fluticasone Propionate (Flovent Hfa) 0.22 MG/Actuation EMERSON 2 PUFF INH BID COPD /ASTHMA (Reported) 220 MCG PER PUFF Furosemide 20 MG TABLET 1 TAB G TUBE DAILY CHF (Reported) Gabapentin 300 MG CAPSULE 1 CAP G TUBE QPM NEUROPATHY (Reported) Levothyroxine Sodium (Synthroid) 150 MCG TABLET 100 MCG PO DAILY HYPOTHYROID (Reported) Lorazepam (Ativan) 0.5 MG TABLET 1 TAB PO Q8H PRN ANXIETY (Reported) Metoprolol Tartrate 25 MG TABLET 0.5 TAB G TUBE BID HTN (Reported) Montelukast Sodium 10 MG TABLET 1 TAB PO DAILY ALLERGIES (Reported) Multivitamin (Multi-Delyn) 5 ML LIQUID 5 ML G TUBE DAILY SUPPLEMENT (Reported ) Review of Systems Review of Systems Constitutional: Reports: see HPI. 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 Ambulation: independent, cane Exam & Diagnostic Data Last 24 Hrs of Vital Signs/I&O Vital Signs Date Time Temp Pulse Resp B/P Pulse O2 O2 Flow FiO2 Ox Delivery Rate 09/07 1031 96.8 95 18 100/63 99 Nasal 2.0L Cannula 09/07 0606 97.5 103 18 119/77 99 Nasal 2.0L Cannula 09/07 0435 97.3 109 22 98/53 95 Nasal 2.0L Cannula 09/07 0348 96.5 110 22 123/81 100 Nasal 2.0L Cannula 09/07 0307 94.8 92 26 152/96 99 Nasal 2.0L Cannula 09/07 0300 99 Nasal 2.0L Cannula 09/07 0204 97.6 102 26 104/60 99 Nasal 2.0L Cannula 09/06 2336 96.0 107 20 143/83 99 Room Air Intake & Output 09/07 1600 09/07 0800 09/07 0000 Intake Total 510 Output Total Balance 510 Intake, IV 510 Patient 146 lb Weight Last 48 Hrs of Labs/Hardy: Laboratory Tests 09/07/16 0704: Troponin I 0.05 09/07/16 0245: pH 7.41, pCO2 32 L, pO2 101 H, HCO3 20 L, ABG O2 Sat (Measured) 97.0, P-50 ( Temp Corrected) Y, Carboxyhemoglobin 0.3 L, O2 Concentration % 2 LPM, Temperature 97.6, O2 Delivery Method N/C, Phlebotomy Draw Site RIGHT RADIAL 09/07/16 0038: Anion Gap 14, Estimated GFR 40 L, BUN/Creatinine Ratio 22.3, Glucose 129 H, Calcium 9.3, Phosphorus 4.3, Magnesium 1.8, Total Bilirubin 0.7, AST 17, ALT 24, Alkaline Phosphatase 70, Troponin I 0.04, [id number]-S-[id number] Pept 45457 H, Total Protein 6.7, Albumin 3.5, Globulin 3.2, Albumin/Globulin Ratio 1.1, PT 20.3 H, INR 1.95 H, APTT 34, CBC w Diff NO MAN DIFF REQ, RBC 4.59, MCV 97.5, MCH 31.7 H, RDW 13.2, MPV 9.5, Gran % 72.1, Lymphocytes % 15.7 L, Monocytes % 7.1, Eosinophils % 4.9, Basophils % 0.2, Absolute Granulocytes 5.7, Absolute Lymphocytes 1.2, Absolute Monocytes 0.6, Absolute Eosinophils 0.4, Absolute Basophils 0, PUBS MCHC 32.5 L, Digoxin 0.5 L Assessment/Plan Impression/Plan: Physical Exam General Appearance Alert, Mild Distress, orineted to person and place Skin No Significant Lesion HEENT Atraumatic, Dry mucous membranes Neck Supple, +2 Carotid Pulse wo Bruit Lymphatic Cervical nl Cardiovascular Regular Rate, Normal S1, Normal S2 Lungs Clear to Auscultation Abdomen Normal Bowel Sounds, Soft, No Tenderness Neurological left-sided weakness noted on upper and lower extremities. Extremities No Clubbing, No Cyanosis Vascular Pulses Symmetrical This is a 75-year-old lady with severe systolic dysfunction of the heart, severe cardiomegaly, paroxysmal atrial fibrillation, recurrent heart failure in the past, aortic stenosis, hypothyroidism, hypertension, hyperlipidemia, Sig gall stone pancreatitis with choledocholithiasis with enterococci bacteremia in the past with s/p ercp, pt on eloquis for afib with Coronary artery disease, status post JUANJOSE, Unfortunately had developed a larged rt mca stroke few months ago admitted to [facility] with left sided paralysis with total care and on peg tube with on off po feeding, Total care in snf, Now has * Altered mental status appears multifactorial (ongoing small vessel disease, vs new stroke, sepsis appears unlikely ) * SIg on off apnea and waxing and waning of consiousness with with aspiration vs dehydration, rule out sepsis With transient hypothermia (pt hypothyroid) * Previous biliary sepsis with choledocholithiasis with normal lfts now * Prob sig central apnea without hypercarbia * PRob ongoing small vessel disease * Ischemic cardiomyopathy status post AICD, with director career lad and lcx 2007 * Atrial fibrillation on Eliquis * Essential hypertension * Moderate aortic stenosis by echocardiogram * H/o Celiac disease * Chronic systolic heart failure stable * CKD with mild worsening renal failure * Hypothyroid on supp * Chronic venous insuff * Sig valvular heart disease * Asthma stable REC Cont antibiotics St cath with ua and c and s Abd ultrasound to eval biliary tract NPO for now, will start tube feeds in am Hold further swallow eval Use g tube for all the meds Check random cortisol, free t4, tsh Cont all the cardiac meds Maintainece ivf with d5 .45 ns at 60 cc per hour Keep hob up ECHO, today Cardio eval appretiated Rpt ct of the head in 2 days to eval for any new stroke WIll follow PT is dnr and dni with no sig aggresive care Prog poor Discussed with daughter and plan as above Consult Acknowledgment - Thank you for your consult request.
[2016-09-07 13:06] VITALS: BP 110/63
--- NOTE | 2016-09-07 13:42 | NUR ---
MULTIPLE UNSUCCESSUFL ATTEMPTS TO DRAW TROPONIN. PT SEEN BY DR DUARTE, AWARE OF CHANGING NEURO STATUS--FROM MIN/UNRESPONSIVE TO FOLLOWING BASIC COMMANDS AND SLURRED SPEECH--STATING HE SPOKE WITH PT'S DAUGHTER AND PT WILL BE CHANGED TO QUARRY SUPERVISOR DIMENSION STONE IF NO SIGNIFICANT IMPROVEMENT.
--- NOTE | 2016-09-07 13:59 | NUR ---
AICD INTERROGATION IN PROGRESS
--- NOTE | 2016-09-07 14:14 | NUR ---
PT TO US
--- NOTE | 2016-09-07 14:36 | NUR ---
PT ADMITTED TO ROOM 180-1 FLOOR WILL CALL WHEN READY
--- NOTE | 2016-09-07 14:50 | NUR ---
TROP OBTAINED AND SENT AFTER MULTIPLE ATTEMPTS. SON AT BEDSIDE. PT WAS LETHARGIC/MIN RESPONSIVE, WHEN SHE HEARD SON'S VOICE BECAME ALERT, CRYING AND SPEAKING CLEARLY .
--- NOTE | 2016-09-07 15:00 | ULTRASOUND REPORT ---
EXAMINATION: US ABDOMEN COMPLETE CLINICAL INFORMATION: Lethargy and decreased mental status. Evaluate for biliary tract pathology.. COMPARISON: Abdomen ultrasound from 03/14/2015 and 02/18/2016 TECHNIQUE: Real-time imaging of the abdominal viscera. FINDINGS: PANCREAS: The pancreas is partially obscured by bowel gas. The visualized portions of the pancreatic head and neck are unremarkable. ABDOMINAL AORTA: There is atherosclerotic calcification of the wall of the proximal abdominal aorta. INFERIOR VENA CAVA: Visualized portions are normal. LIVER: Liver has normal size, contour and echotexture. A 1.1 x 1.4 x 1.1 cm simple hepatic cyst is present superior to the gallbladder fossa. No dilated intrahepatic ducts are seen. GALLBLADDER: Gallbladder contains multiple calculi and sludge. Gallbladder wall is approximately 5-6 mm thick. There is no pericholecystic fluid. The communications technologist reports inability to assess for a Abbott's sign due to patient's nonverbal status. COMMON BILE DUCT: Normal in caliber measuring 0.5 cm in diameter. RIGHT KIDNEY: The cortex of the right kidney is diffusely atrophied. The kidney measures 7.2 cm in length. A 2.5 x 2.3 x 2 cm simple cyst is present within the interpolar region. No hydronephrosis or nephrolithiasis. LEFT KIDNEY: Left kidney measures 10.7 cm in length. 6.9 x 5 x 5.1 cm simple cortical cyst arises from the left lower pole. No hydronephrosis or nephrolithiasis. SPLEEN: Normal. The spleen measures 10 cm in maximum dimension. FREE FLUID: None. IMPRESSION: Gallbladder contains multiple stones and sludge, and gallbladder wall remains abnormally thickened. These findings were present on 02/18/2016. The communications technologist reports uncertainty regarding a Abbott's sign due to patient's nonverbal status. Therefore, cholecystitis is considered possible. If clinically warranted, pursue hepatobiliary imaging to determine whether the cystic duct is obstructed. The common bile duct is incompletely visualized but the visualized proximal portion is 0.5 cm, compared to 1.3 cm on 02/18/2016.
--- NOTE | 2016-09-07 15:22 | NUR ---
PER [employer] REP AICD IS FUNCTIONING NORMALLY
--- NOTE | 2016-09-07 15:58 | NUR ---
RETURNED CALL TO GET REPORT, ON HOLD WITH NO ANSWER. PLEASE CALL [phone] WHEN AVAILABLE TO GIVE REPORT. THANK YOU.
--- NOTE | 2016-09-07 16:06 | NUR ---
STRAIGHT CATH, URINE TRIO SENT, REPOSITION, INCONT URINE/STOOL, CLEANED AND CHANGED.
--- NOTE | 2016-09-07 16:23 | NUR ---
REPORT CALLED TO [facility] [address], BED IS READY, TRANSPORT CALLED.
[2016-09-07 17:25] VITALS: BP 106/70
--- NOTE | 2016-09-07 19:48 | NUR ---
AT APPROXIMATELY 1645 PT BROUGHT TO ROOM ON 2L NC; 22 IN THE RF; 22 IN THE RW; PT ALERT AND CONFUSED; PT ORIENTED TO ROOM; TELE MONITOR PLACED; NO QUESTIONS OR COMPLAINTS AT THIS TIME; WILL CONT TO MONITOR
[2016-09-07 23:00] VITALS: BP 124/80
--- NOTE | 2016-09-08 05:44 | NUR ---
AT 0544 PT HAD A THREE BEAT RUN OF VTACH. MD BOCANEGRA NOTIFIED.
--- NOTE | 2016-09-08 06:27 | PN- Housestaff ---
Subjective Follow-up For: AMS Biliary Sepsi Cholecystitis Subjective: Ms Pastor was seen and examined this morning. Resting comfortably in bed. Appears more alert and awake compared to previous interaction at the emergency department. Patient continues to experience general chest discomfort and shortness of breath. Patient is not on any supplemental oxygen. Patient denies any complaints overnight. She continues to experience left-sided weakness owing to previous CVA. Patient denies any fever, chills, nausea, vomiting. Review of Systems Constitutional: Reports: see HPI. Objective Last 24 Hrs of Vital Signs/I&O Vital Signs Date Time Temp Pulse Resp B/P Pulse O2 O2 Flow FiO2 Ox Delivery Rate 09/08 0000 96 Nasal 2.0L Cannula 09/07 2300 98.2 113 20 124/80 96 Nasal 2.0L Cannula 09/07 2141 Nasal 2.0L Cannula 09/07 2117 113 124/80 09/07 1915 106 132/84 09/07 1725 98.0 96 18 106/70 95 Nasal 2.0L Cannula 09/07 1700 99 Nasal 2.0L Cannula 09/07 1513 99 Nasal 2.0L Cannula 09/07 1505 99 Nasal 2.0L Cannula 09/07 1317 96.0 92 18 110/63 09/07 1306 96.0 92 18 110/63 99 Nasal 2.0L Cannula 09/07 1031 96.8 95 18 100/63 99 Nasal 2.0L Cannula Intake & Output 09/08 0800 09/08 0000 09/07 1600 Intake Total 410 Output Total 100 Balance 310 Intake, IV 370 Intake, Oral 0 Intake, Tube 40 Irrigant Number 1 Bowel Movements Output, Urine 100 Physical Exam General Appearance: Alert, Oriented X3 Lungs: Clear to Auscultation Abdomen: Normal Bowel Sounds, Soft, No Tenderness Neurological: Left Sided Weakness Upper and Lower Extremity. Right Sided strength 5/5 Extremities: No Edema Vascular: Pulses Symmetrical Last 24 Hrs of Lab/Hardy Results Last 24 Hrs of Labs/Mics: Laboratory Tests 09/08/16 0607: Anion Gap 15, Estimated GFR 40 L, BUN/Creatinine Ratio 19.2, Phosphorus 4.3, Magnesium 1.6, Digoxin 0.4 L 09/07/16 1604: Urine Color YEL, Urine Clarity HAZY H, Urine pH 6.0, Ur Specific [place] >= 1.030, Urine Protein >=300 H, Urine Ketones NEG, Urine Nitrite NEG, Urine Bilirubin NEG, Urine Urobilinogen 0.2, Ur Leukocyte Esterase MOD H, Ur Microscopic SEDIMENT EXAMINED, Urine RBC 3-5, Urine WBC PACKD H, Urine Hemoglobin MOD H, Urine Glucose NEG 09/07/16 1446: Troponin I 0.03 Microbiology 09/07 1604 URINE ROUT: Urine Culture - RECD Orders Radiology Findings: PATIENT: CHACHO ALEXANDER PRESENT AGE: 76 PATIENT ACCOUNT NO: [id number] : 39 LOCATION: [facility] ORDERING PHYSICIAN: ALEX STODDARD MD SERVICE DATE: 09/07/16 EXAM TYPE: US - US-COMPLETE ABDOMEN EXAMINATION: US ABDOMEN COMPLETE CLINICAL INFORMATION: Lethargy and decreased mental status. Evaluate for biliary tract pathology.. COMPARISON: Abdomen ultrasound from 03/14/2015 and 02/18/2016 TECHNIQUE: Real-time imaging of the abdominal viscera. FINDINGS: PANCREAS: The pancreas is partially obscured by bowel gas. The visualized portions of the pancreatic head and neck are unremarkable. ABDOMINAL AORTA: There is atherosclerotic calcification of the wall of the proximal abdominal aorta. INFERIOR VENA CAVA: Visualized portions are normal. LIVER: Liver has normal size, contour and echotexture. A 1.1 x 1.4 x 1.1 cm simple hepatic cyst is present superior to the gallbladder fossa. No dilated intrahepatic ducts are seen. GALLBLADDER: Gallbladder contains multiple calculi and sludge. Gallbladder wall is approximately 5-6 mm thick. There is no pericholecystic fluid. The surgical scrub technologist reports inability to assess for a Abbott's sign due to patient's nonverbal status. COMMON BILE DUCT: Normal in caliber measuring 0.5 cm in diameter. RIGHT KIDNEY: The cortex of the right kidney is diffusely atrophied. The kidney measures 7.2 cm in length. A 2.5 x 2.3 x 2 cm simple cyst is present within the interpolar region. No hydronephrosis or nephrolithiasis. LEFT KIDNEY: Left kidney measures 10.7 cm in length. 6.9 x 5 x 5.1 cm simple cortical cyst arises from the left lower pole. No hydronephrosis or nephrolithiasis. SPLEEN: Normal. The spleen measures 10 cm in maximum dimension. FREE FLUID: None. IMPRESSION: Gallbladder contains multiple stones and sludge, and gallbladder wall remains abnormally thickened. These findings were present on 02/18/2016. The surgical scrub technologist reports uncertainty regarding a Abbott's sign due to patient's nonverbal status. Therefore, cholecystitis is considered possible. If clinically warranted, pursue hepatobiliary imaging to determine whether the cystic duct is obstructed. The common bile duct is incompletely visualized but the visualized proximal portion is 0.5 cm, compared to 1.3 cm on 02/18/2016. DICTATED BY: JESSIE HESS MD DATE/TIME DICTATED:09/07/161441 NAPPER FIXER:RICHA DATE/TIME TRANSCRIBED:09/07/161441 CONFIDENTIAL, DO NOT COPY WITHOUT APPROPRIATE AUTHORIZATION. 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 Abdominal US done yesterday: Recommend additional workup to rule out cholecystitis. HIDA Scan Ordered Continue on telemetry for close monitoring Will keep nothing by mouth for now, Patient scheduled to go for CT on 09/09/2016 to rule out worsening stroke. Head of bed elevated. Patient is continued to get medications via G tube. HIDA scan ordered for today. Also obtained a consult from the GI service. Rule out Cholecystitis. #Atypical chest pain: Rule out ACS Initial troponin 0.04, 0.05, 0.03. Will obtain troponins to rule out ACS # Possible Pneumonia Continue Unasyn for possible aspiration Urine culture, sputum culture, and blood cultures: Cultures reveal no evidence of growth after day 1. #History of CHF Will hold off Lasix and metoprolol drop in blood pressure Patient was running tachycardic and metoprolol dose was adjusted to 25 mg twice a day. Digoxin and BB started yeaterday ECHO: Pending AICD interrogation: Pending #Atrial Fibrillation Continue Eliquis #Diet NPO for now #DVT Prophylaxis Continue Eliquis #Code DNR DNI . Problem List: 1. Altered mental status 2. Unresponsiveness 3. Sepsis 4. Systolic congestive heart failure Pain Ratin Pain Location: NA Pain Goal: Remain pain free Pain Plan: Tylenol PRN Tomorrow's Labs & Rationales: BEP: Monitor renal function given his elevated creatinine. CBC: Signs of acute infection in the setting of questionable cholecystitis. Mag: Monitor hypomagnesemia. Phosphorus: Monior Hypophosphatemia
[2016-09-08 08:22] VITALS: BP 128/78
--- NOTE | 2016-09-08 09:16 | PN- Cardiology ---
Subjective Subjective: Patient is confused appears to be dyspneic and Review of Systems: Unobtainable due to confusion Objective Vital Signs and I&Os Vital Signs Date Time Temp Pulse Resp B/P Pulse O2 O2 Flow FiO2 Ox Delivery Rate 09/08 0822 97.2 120 32 128/78 96 Room Air 09/08 0804 91 Room Air 09/08 0000 96 Nasal 2.0L Cannula 09/07 2300 98.2 113 20 124/80 96 Nasal 2.0L Cannula 09/07 2141 Nasal 2.0L Cannula 09/07 2117 113 124/80 09/07 1915 106 132/84 09/07 1725 98.0 96 18 106/70 95 Nasal 2.0L Cannula 09/07 1700 99 Nasal 2.0L Cannula 09/07 1513 99 Nasal 2.0L Cannula 09/07 1505 99 Nasal 2.0L Cannula 09/07 1317 96.0 92 18 110/63 09/07 1306 96.0 92 18 11063 99 Nasal 2.0L Cannula 09/07 1031 96.8 95 18 100/63 99 Nasal 2.0L Cannula Intake & Output 09/08 1600 09/08 0800 09/08 0000 09/07 1600 09/07 0800 09/07 0000 Intake Total 480 410 510 Output Total 100 Balance 480 310 510 Intake, IV 480 370 510 Intake, Oral 0 0 Intake, Tube 40 Irrigant Number 1 1 Bowel Movements Output, Urine 100 Patient 146 lb Weight Physical Exam: Patient is a well-developed cachectic female appearing in mild respiratory distress HEENT is unremarkable Neck is supple there is no JVD Lungs are clear Heart irregular rhythm S1 and S2 are normal no gallops or rubs 2/6 systolic ejection murmur at the right upper sternal border Abdomen bowel sounds positive Extremities without edema Current Medications: Current Medications Sig/Jake Start time Last Medication Dose Route Stop Time Status Admin Acetaminophen 650 MG Q6P PRN 09/07 0815 AC 09/08 PO 0241 Albuterol Sulfate 3 ML BID 09/07 220 AC 09/08 INH 0802 Ampicillin Sodium/ 0 .STK-MED ONE 09/07 1311 DC Sulbactam Sodium .ROUTE Ampicillin Sodium/ 3,000 MG Q6 09/07 0600 AC 09/08 Sulbactam Sodium IV 0607 Sodium Chloride 100 ML Apixaban 5 MG BID 09/07 1018 AC 09/07 PO 2117 Calcium Carbonate 500 MG BID 09/07 1018 AC 09/07 PO 211 Cholecalciferol 1,000 IU DAILY 09/07 1019 AC 09/07 PO 1100 Dextrose/Sodium 1,000 ML Q13H 09/07 1330 AC 09/07 Chloride IV 1329 Dextrose/Sodium 1,000 ML ONCE ONE 09/07 0945 DC 09/07 Chloride IV 09/07 2304 1000 Digoxin 0.0625 MG 1700 09/07 1700 AC 09/07 PO 1915 Fluticasone 2 PUF BID 09/07 1022 AC 09/07 Propionate INH 2117 Influenza Virus 0.5 ML ONCE ONE 09/07 1530 DC Vaccine IM 09/07 1600 Levothyroxine Sodium 0.1 MG DAILY AC 09/07 1038 AC 09/08 PO 0607 Levothyroxine Sodium 0.1 MG DAILY 09/07 1023 DC PO Lorazepam 0.5 MG Q8H PRN 09/07 1030 AC 09/08 PO 09/14 1029 0232 Metoprolol Tartrate 0 .STK-MED ONE 09/07 1312 DC PO Metoprolol Tartrate 12.5 MG BID 09/07 1148 AC 09/07 PO 211 Montelukast Sodium 10 MG QPM 09/07 2200 AC 09/07 PO 211 Sodium Chloride 500 ML .Q6H40M 09/07 0515 DC 09/07 IV 09/07 1154 0645 Results Last 48 Hrs of Labs/Mics: Laboratory Tests 09/08/16 0607: Anion Gap 15, Estimated GFR 40 L, BUN/Creatinine Ratio 19.2, Phosphorus 4.3, Magnesium 1.6, Digoxin 0.4 L 09/07/16 1604: Urine Color YEL, Urine Clarity HAZY H, Urine pH 6.0, Ur Specific [place] >= 1.030, Urine Protein >=300 H, Urine Ketones NEG, Urine Nitrite NEG, Urine Bilirubin NEG, Urine Urobilinogen 0.2, Ur Leukocyte Esterase MOD H, Ur Microscopic SEDIMENT EXAMINED, Urine RBC 3-5, Urine WBC PACKD H, Urine Hemoglobin MOD H, Urine Glucose NEG 09/07/16 1446: Troponin I 0.03 09/07/16 0704: Troponin I 0.05, TSH 6.740 H, Free T4 1.69, Cortisol AM Sample 27.6 H 09/07/16 0652: Lactic Acid Cancelled 09/07/16 0245: pH 7.41, pCO2 32 L, pO2 101 H, HCO3 20 L, ABG O2 Sat (Measured) 97.0, P-50 ( Temp Corrected) Y, Carboxyhemoglobin 0.3 L, O2 Concentration % 2 LPM, Temperature 97.6, O2 Delivery Method N/C, Phlebotomy Draw Site RIGHT RADIAL 09/07/16 0038: Anion Gap 14, Estimated GFR 40 L, BUN/Creatinine Ratio 22.3, Glucose 129 H, Calcium 9.3, Phosphorus 4.3, Magnesium 1.8, Total Bilirubin 0.7, AST 17, ALT 24, Alkaline Phosphatase 70, Troponin I 0.04, Tvt-B-Uryeitbxbim Pept 49681 H, Total Protein 6.7, Albumin 3.5, Globulin 3.2, Albumin/Globulin Ratio 1.1, PT 20.3 H, INR 1.95 H, APTT 34, CBC w Diff NO MAN DIFF REQ, RBC 4.59, MCV 97.5, MCH 31.7 H, RDW 13.2, MPV 9.5, Gran % 72.1, Lymphocytes % 15.7 L, Monocytes % 7.1, Eosinophils % 4.9, Basophils % 0.2, Absolute Granulocytes 5.7, Absolute Lymphocytes 1.2, Absolute Monocytes 0.6, Absolute Eosinophils 0.4, Absolute Basophils 0, PUBS MCHC 32.5 L, Digoxin 0.5 L Telemetry personally reviewed rapid atrial fibrillation PVCs and couplets Assessment/Plan Assessment/Plan 1. Altered mental status 2. Possible pneumonia, question aspiration 3. CKD 4. Atrial fibrillation on Eliquis 5. Acute CVA 03/2016 (while off AC for GI procedure) tx at [facility], s/p PEG tube for dysphagia 6. History of systolic congestive heart failure with myocardial scar/ischemic cardiomyopathy 7. CAD with PCI to the LAD/LCx 2007 8. AICD in situ ([employer]) 9. History of choledocholithiasis/cholangitis 10. History of statin intolerance 1. Atrial fibrillation with rapid ventricular response is most likely secondary to possible sepsis and encephalopathy. Therefore continue digoxin and metoprolol. 2. Echocardiogram is pending 3. If it is determined that patient is unable to tolerate by mouth would recommend IV heparin given the patient's history of CVA when Eliquis was held in the past 4. Continue hydration 5. Final report on cultures is pending Continue telemetry? Yes
--- NOTE | 2016-09-08 11:33 | PN- Pulmonary ---
Subjective HPI/Critical Care Issues: Ms Pastor was seen and examined this morning. Resting comfortably in bed. Appears more alert and awake compared to previous interaction at the emergency department. Patient continues to experience general chest discomfort and shortness of breath. Patient is not on any supplemental oxygen. Patient denies any complaints overnight. She continues to experience left-sided weakness owing to previous CVA. Patient denies any fever, chills, nausea, vomiting. Review of Systems Constitutional: Reports: see HPI. Objective Current Medications: Current Medications Sig/Jake Start time Last Medication Dose Route Stop Time Status Admin Acetaminophen 650 MG .STK-MED ONE 09/08 0238 DC PO 09/08 0239 Acetaminophen 650 MG Q6P PRN 09/07 0815 AC 09/08 PO 0241 Albuterol Sulfate 3 ML BID 09/07 2200 AC 09/08 INH 0802 Ampicillin Sodium/ 0 .STK-MED ONE 09/07 1311 DC Sulbactam Sodium .ROUTE Ampicillin Sodium/ 3,000 MG Q6 09/07 0600 AC 09/08 Sulbactam Sodium IV 0607 Sodium Chloride 100 ML Apixaban 5 MG BID 09/07 1018 AC 09/08 PO 0954 Calcium Carbonate 500 MG BID 09/07 1018 AC 09/08 PO 0953 Cholecalciferol 1,000 IU DAILY 09/07 1019 AC 09/08 PO 0954 Dextrose/Sodium 1,000 ML Q13H 09/07 1330 AC 09/07 Chloride IV 1329 Dextrose/Sodium 1,000 ML ONCE ONE 09/07 0945 DC 09/07 Chloride IV 09/07 2304 1000 Digoxin 0.0625 MG 1700 09/07 1700 AC 09/07 PO 1915 Fluticasone 2 PUF BID 09/07 1022 AC 09/08 Propionate INH 0954 Influenza Virus 0.5 ML ONCE ONE 09/07 1530 DC Vaccine IM 09/07 1600 Levothyroxine Sodium 0.1 MG DAILY AC 09/07 1038 AC 09/08 PO 0607 Lorazepam 1 MG ONCE ONE 09/08 1130 CANr IV 09/08 1131 Lorazepam 0.5 MG ONCE ONE 09/08 1130 UNVr IV 09/08 1131 Lorazepam 0.5 MG Q8H PRN 09/07 1030 AC 09/08 PO 09/14 1029 0954 Metoprolol Tartrate 0 .STK-MED ONE 09/07 1312 DC PO Metoprolol Tartrate 12.5 MG BID 09/07 1148 AC 09/08 PO 0954 Montelukast Sodium 10 MG QPM 09/07 2200 AC 09/07 PO 2117 Sodium Chloride 500 ML .Q6H40M 09/07 0515 DC 09/07 IV 09/07 1154 0645 Laboratory Tests 09/08 09/07 09/07 0607 1604 1446 Chemistry Sodium (137 - 145 mmol/L) 143 Potassium (3.5 - 5.1 mmol/L) 4.4 Chloride (98 - 107 mmol/L) 107 Carbon Dioxide (22 - 30 mmol/L) 21 L Anion Gap (5 - 16) 15 BUN (7 - 17 mg/dL) 25 H Creatinine (0.5 - 1.0 mg/dL) 1.3 H Estimated GFR (>60 ml/min) 40 L BUN/Creatinine Ratio (7 - 25 %) 19.2 Phosphorus (2.5 - 4.5 mg/dL) 4.3 Magnesium (1.6 - 2.3 mg/dL) 1.6 Troponin I (< 0.11 ng/ml) 0.03 Toxicology Digoxin (0.8 - 2.0 ng/mL) 0.4 L Urines Urine Color (YEL,AMB,STR) YEL Urine Clarity (CLEAR) HAZY H Urine pH (5.0 - 8.0) 6.0 Ur Specific [place] (1.001 - 1.035) >= 1.030 Urine Protein (NEG,<30 MG/DL) >=300 H Urine Ketones (NEG) NEG Urine Nitrite (NEG) NEG Urine Bilirubin (NEG) NEG Urine Urobilinogen (0.1 - 1.0 EU/dl) 0.2 Ur Leukocyte Esterase (NEG) MOD H Ur Microscopic SEDIMENT EXAMINED Urine RBC (0 - 5 /HPF) 3-5 Urine WBC (0 - 2 /HPF) PACKD H Urine Hemoglobin (NEG) MOD H Urine Glucose (N MG/DL) NEG 09/07 09/07 09/07 0704 0652 0245 Blood Gas pH (7.35 - 7.45 PH) 7.41 pCO2 (35 - 45 TORR) 32 L pO2 (80 - 100 TORR) 101 H HCO3 (21 - 28 MEQ/L) 20 L ABG O2 Sat (Measured) (>96.0 %) 97.0 P-50 (Temp Corrected) Y Carboxyhemoglobin (1.5 - 5.0 %) 0.3 L O2 Concentration % 2 LPM Temperature (97.0 - 100.0 FARH) 97.6 O2 Delivery Method N/C Chemistry Lactic Acid Cancelled Troponin I (< 0.11 ng/ml) 0.05 TSH (0.270 - 4.200 uIU/mL) 6.740 H Free T4 (0.78 - 2.44 ng/dL) 1.69 Cortisol AM Sample (4.46 - 22.7 ug/dL) 27.6 H Miscellaneous Phlebotomy Draw Site RIGHT RADIAL 09/07 0038 Chemistry Sodium (137 - 145 mmol/L) 145 Potassium (3.5 - 5.1 mmol/L) 4.7 Chloride (98 - 107 mmol/L) 105 Carbon Dioxide (22 - 30 mmol/L) 26 Anion Gap (5 - 16) 14 BUN (7 - 17 mg/dL) 29 H Creatinine (0.5 - 1.0 mg/dL) 1.3 H Estimated GFR (>60 ml/min) 40 L BUN/Creatinine Ratio (7 - 25 %) 22.3 Glucose (65 - 99 mg/dL) 129 H Calcium (8.4 - 10.2 mg/dL) 9.3 Phosphorus (2.5 - 4.5 mg/dL) 4.3 Magnesium (1.6 - 2.3 mg/dL) 1.8 Total Bilirubin (0.2 - 1.3 mg/dL) 0.7 AST (14 - 36 U/L) 17 ALT (9 - 52 U/L) 24 Alkaline Phosphatase (<127 U/L) 70 Troponin I (< 0.11 ng/ml) 0.04 Xah-Z-Tiautxelzle Pept (<125 pg/mL) 71114 H Total Protein (6.3 - 8.2 g/dL) 6.7 Albumin (3.5 - 5.0 g/dL) 3.5 Globulin (1.9 - 4.2 gm/dL) 3.2 Albumin/Globulin Ratio (1.1 - 2.2 %) 1.1 Coagulation PT (9.4 - 12.5 SEC) 20.3 H INR (0.90 - 1.19) 1.95 H APTT (25 - 37 SEC) 34 Hematology CBC w Diff NO MAN DIFF REQ WBC (4.8 - 10.8 /CUMM) 7.9 RBC (4.20 - 5.40 /CUMM) 4.59 Hgb (12.0 - 16.0 G/DL) 14.6 Hct (37 - 47 %) 44.7 MCV (81.0 - 99.0 FL) 97.5 MCH (27.0 - 31.0 PG) 31.7 H RDW (11.5 - 14.5 %) 13.2 Plt Count (130 - 400 /CUMM) 201 MPV (7.4 - 10.4 FL) 9.5 Gran % (42.2 - 75.2 %) 72.1 Lymphocytes % (20.5 - 51.1 %) 15.7 L Monocytes % (1.7 - 9.3 %) 7.1 Eosinophils % (0 - 5 %) 4.9 Basophils % (0.0 - 2.0 %) 0.2 Absolute Granulocytes (1.4 - 6.5 /CUMM) 5.7 Absolute Lymphocytes (1.2 - 3.4 /CUMM) 1.2 Absolute Monocytes (0.10 - 0.60 /CUMM) 0.6 Absolute Eosinophils (0.0 - 0.7 /CUMM) 0.4 Absolute Basophils (0.0 - 0.2 /CUMM) 0 PUBS MCHC (33.0 - 37.0 G/DL) 32.5 L Toxicology Digoxin (0.8 - 2.0 ng/mL) 0.5 L Microbiology Date/Time Procedure - Status Source Growth 09/07 1604 Urine Culture - RES URINE ROUT 09/07 0651 Respiratory Culture - COLB LOWER RESP 09/07 0651 Gram Stain - COLB LOWER RESP 09/07 0249 Blood Culture - RECD BLOOD 09/07 0238 Blood Culture - RECD BLOOD Vital Signs & I&O Last 24 Hrs of Vitals and I&O: Vital Signs Date Time Temp Pulse Resp B/P Pulse O2 O2 Flow FiO2 Ox Delivery Rate 09/08 0954 120 128/78 09/08 0822 97.2 120 32 128/78 96 Room Air 09/08 0804 91 Room Air 09/08 0000 96 Nasal 2.0L Cannula 09/07 2300 98.2 113 20 124/80 96 Nasal 2.0L Cannula 09/07 2140 Nasal 2.0L Cannula 01/09 2117 113 124/80 09/07 1915 106 132/84 09/07 1725 98.0 96 18 106/70 95 Nasal 2.0L Cannula 09/07 1700 99 Nasal 2.0L Cannula 09/07 1513 99 Nasal 2.0L Cannula 09/07 1505 99 Nasal 2.0L Cannula 09/07 1317 96.0 92 18 110/63 09/07 1306 96.0 92 18 99 Nasal 2.0L Cannula Intake & Output 09/08 1600 09/08 0800 09/08 0000 Intake Total 480 410 Output Total 100 Balance 480 310 Intake, IV 480 370 Intake, Oral 0 0 Intake, Tube 40 Irrigant Number 1 1 Bowel Movements Output, Urine 100 Patient 146 lb Weight Impression/Plan Impression/Plan Impression/Plan: Physical Exam General Appearance Alert, Mild Distress, orineted to person and place Skin No Significant Lesion HEENT Atraumatic, Dry mucous membranes Neck Supple, +2 Carotid Pulse wo Bruit Lymphatic Cervical nl Cardiovascular Regular Rate, Normal S1, Normal S2 Lungs Clear to Auscultation Abdomen Normal Bowel Sounds, Soft, No Tenderness Neurological left-sided weakness noted on upper and lower extremities. Extremities No Clubbing, No Cyanosis Vascular Pulses Symmetrical This is a 75-year-old lady with severe systolic dysfunction of the heart, severe cardiomegaly, paroxysmal atrial fibrillation, recurrent heart failure in the past, aortic stenosis, hypothyroidism, hypertension, hyperlipidemia, Sig gall stone pancreatitis with choledocholithiasis with enterococci bacteremia in the past with s/p ercp, pt on eloquis for afib with Coronary artery disease, status post JUANJOSE, Unfortunately had developed a larged rt mca stroke few months ago admitted to [facility] with left sided paralysis with total care and on peg tube with on off po feeding, Total care in snf, Now has * Altered mental status appears multifactorial (ongoing small vessel disease, vs new stroke, sepsis appears unlikely ) * SIg on off apnea and waxing and waning of consiousness with with aspiration vs dehydration, rule out sepsis With transient hypothermia (pt hypothyroid) * Previous biliary sepsis with choledocholithiasis with normal lfts now, with abnormal gall bladder * Prob sig central apnea without hypercarbia * PRob ongoing small vessel disease * Ischemic cardiomyopathy status post AICD, 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 * Atrial fibrillation on Eliquis * Essential hypertension * Moderate aortic stenosis by echocardiogram * H/o Celiac disease * Chronic systolic heart failure stable * CKD with mild worsening renal failure * Hypothyroid on supp * Chronic venous insuff * Sig valvular heart disease * Asthma stable REC Cont antibiotics PLease order a HIDA scan today to assess the gall bladder Please ask GI to see and they have seen her before IF HIDA is neg then start tube feedings Use g tube for all the meds Cont all the cardiac meds Maintainece ivf with d5 .45 ns at 60 cc per hour Keep hob up Cardio eval appretiated Rpt ct of the head tommorow days to eval for any new stroke WIll follow PT is dnr and dni with no sig aggresive care Prog poor Discussed with daughter and plan as above yesterday
[2016-09-08 15:59] VITALS: BP 110/76
--- NOTE | 2016-09-08 16:05 | NUCLEAR MEDICINE REPORT ---
EXAMINATION: BILIARY TRACT IMAGING STUDY CLINICAL INFORMATION: Decreased mental status, rule out acute cholecystitis.. COMPARISON: No previous biliary scan is available for comparison.. A radionuclide myocardial perfusion study dated 05/07/2010 visualized the gallbladder. Abdominal ultrasound dated 09/07/2016 is available for comparison. TECHNIQUE: Serial gamma scintillation camera images were obtained over the abdomen for a total observation period 4 hours following the intravenous administration of 4.8 mCi Tc-99m Choletec. Because of the patient's inability to cooperate, images could not be obtained until 85 minutes post injection anomaly an images that time and 2 images at 4 hours post injection couldn't be obtained. On the initial image obtained at 85 minutes post injection there is good visualization of biliary activity in the common bile duct and small bowel in the radha hepatis region and diffuse activity is visualized in the liver, initial intensity appropriate for this interval post injection. The gallbladder is not visualized at this time. On subsequent delayed images obtained at 4 hours post injection there is visualization of diffuse small bowel activity, but no visualization of the gallbladder. There is good clearance of activity from the liver at this time, with the liver only faintly visualized. IMPRESSION: Nonvisualization the gallbladder is evidence of an obstructed cystic duct and strong evidence to suggest the diagnosis of acute cholecystitis. The common bile duct is patent. Liver function appears normal. The study was limited due to the patient's inability to cooperate with initial images immediately following injection, but nonetheless the findings are strongly suspicious acute cholecystitis.
--- NOTE | 2016-09-08 18:19 | PN- Att Addend ---
Attending Addendum Attending Brief Note D/w GI (Dr. Cardenas) Subsequently [facility] records reviewed - Pt did have an ercp with spincterotomy with two stones extracted and extraction of the stent. PT has no sig clinical signs of acute shailesh HIda IS positive for nonvisualizaion of gb.( finding may be related to spincterotomy) REC GEN surg EVal DC eloquis and start IV heparin for now PT may not need surg as clinically appears not to have acute shailesh COnt current rx Will consider tube feedings in am if ok with gi and surg
--- NOTE | 2016-09-08 18:54 | Event Note ---
Event Note Event Note: A 6:[address] Cardenas GI regarding the HIDA scan results and his recommendation for starting antibiotic to treat acute cholecystitis. The patient doesn't have any symptoms or signs suggestive for acute cholecystitis except the abdomen ultrasound and HIDA scan results. The thought process was that patient may have this positive imaging results because of chronic cholecystitis, Dr. Cardenas recommendation is not to treat acute cholecystitis based on imaging results without any supporting clinical data. Dr. Hopkins will contact surgery Dr. Cleaning for possible cholecystectomy although he doesn't think patient's family will consent for surgery. Dr. Cardenas will evaluate the patient soon and will follow GI recommendation. Based on Garry Abdalla MD recommendation, Eliquis was discontinuing and start the IV heparin. Patient is guaic negative.
--- NOTE | 2016-09-08 19:02 | Cons- Gastroenterology ---
General Information and HPI Consulting Request Date of Consult: 09/08/16 (MD MIRANDA/GASTROENTEROLOGY) Requested By: GERALD PADILLA,RHONDA Kwon Reason for Consult: Gallstone disease Source of Information: family, old records Exam Limitations: clinical condition History of Present Illness: The patient was admitted in March with cholangitis, while anticoagulated. ERCP demonstrated choledocholithiasis, and the patient was treated with insertion of an endobiliary stent. She was seen in the office in February and scheduled for follow-up ERCP to remove the stent/stones. However when her Eliquis was stopped for the procedure, she suffered a stroke. She was admitted to [facility]. During that hospitalization, according to her daughter, an ERCP was performed with removal of stent and stones. A feeding gastrostomy tube was inserted. The patient is now admitted with weakness, change in mental status. She is bedbound, PEG fed and poorly communicative. There is been no reported abdominal pain, jaundice, GI bleeding. In the search for causes of her decline, an abdominal ultrasound and subsequent HIDA scan were performed, with results below. The patient cannot relay any further history. Allergies/Medications Allergies: Coded Allergies: STATINS (Intermediate, ACHEY HEAD TO TOE "PAIN ALL OVER BODY" 09/06/16) acetaminophen (Mild, ABDOMINAL PAIN 09/06/16) Home Med List: Acetaminophen 500 MG TABLET 975 MG G TUBE Q8H PAIN (Reported) Albuterol Sulfate (Ventolin Hfa) 90 MCG HFA.AER.AD 2 PUF INH Q4-6 PRN PRN SOB (Reported) Apixaban (Eliquis) 5 MG TABLET 1 TAB PO BID AFIB (Reported) Calcium Carbonate (Antacid) 200 MG CALCIUM (500 MG) TAB.CHEW 500 MG PO BID SUPPLEMENT (Reported) Cholecalciferol (Vitamin D3) 1,000 UNIT TABLET 1 TAB G TUBE DAILY SUPPLEMENT (Reported) Chondroitin Sulf/Glucosamine (Glucosamine & Chondroitin) 1 CAP CAP 1 CAP PO DAILY SUPPLEMENT (Reported) Reason to Stop at ADM: no alternative in the hospital Digoxin 125 MCG TABLET 65 MCG G TUBE DAILY HEART (Reported) HOLD IF HR LESS THAN 60 [DUONEB] SOB (Reported) X48 HRS, D/C ON 09/09/16. Ferrous Sulfate 325 MG (65 MG IRON) TABLET 325 MG G TUBE DAILY SUPPLEMENT ( Reported) Fluticasone Propionate (Flovent Hfa) 0.22 MG/Actuation EMERSON 2 PUFF INH BID COPD /ASTHMA (Reported) 220 MCG PER PUFF Furosemide 20 MG TABLET 1 TAB G TUBE DAILY CHF (Reported) Gabapentin 300 MG CAPSULE 1 CAP G TUBE QPM NEUROPATHY (Reported) Levothyroxine Sodium (Synthroid) 150 MCG TABLET 100 MCG PO DAILY HYPOTHYROID (Reported) Lorazepam (Ativan) 0.5 MG TABLET 1 TAB PO Q8H PRN ANXIETY (Reported) Metoprolol Tartrate 25 MG TABLET 0.5 TAB G TUBE BID HTN (Reported) Montelukast Sodium 10 MG TABLET 1 TAB PO DAILY ALLERGIES (Reported) Multivitamin (Multi-Delyn) 5 ML LIQUID 5 ML G TUBE DAILY SUPPLEMENT (Reported ) Current Medications: Current Medications Sig/Jake Start time Last Medication Dose Route Stop Time Status Admin Acetaminophen 650 MG .STK-MED ONE 09/08 0238 DC PO 09/08 0239 Acetaminophen 650 MG Q6P PRN 09/07 0815 09/08 PO 0241 Albuterol Sulfate 3 ML BID 09/07 2200 AC 09/08 INH 0802 Ampicillin Sodium/ 3,000 MG Q6 09/07 0600 AC 09/08 Sulbactam Sodium IV 1242 Sodium Chloride 100 ML Apixaban 5 MG BID 09/07 1018 AC 09/08 PO 0954 Calcium Carbonate 500 MG BID 09/07 1018 AC 09/08 PO 0953 Cholecalciferol 1,000 IU DAILY 09/07 1019 AC 09/08 PO 0954 Dextrose/Sodium 1,000 ML Q13H 09/08 1845 UNVr Chloride IV 09/09 2044 Dextrose/Sodium 1,000 ML Q13H 09/07 1330 DC 09/07 Chloride IV 09/08 1529 1329 Dextrose/Sodium 1,000 ML ONCE ONE 09/07 0945 DC 09/07 Chloride IV 09/07 2304 1000 Digoxin 0.0625 MG 1700 09/07 1700 AC 09/08 PO 1652 Fluticasone 2 PUF BID 09/07 1022 AC 09/08 Propionate INH 0954 Levothyroxine Sodium 0.1 MG DAILY AC 09/07 1038 AC 09/08 PO 0607 Lorazepam 1 MG ONCE ONE 09/08 1130 CAN IV 09/08 1131 Lorazepam 0.5 MG ONCE ONE 09/08 1130 DC 09/08 IV 09/08 1131 1145 Lorazepam 0.5 MG Q8H PRN 09/07 1030 AC 09/08 PO 09/14 1029 1803 Magnesium Sulfate 1 GM ONCE ONE 09/08 1315 DC 09/08 Dextrose/Water 100 ML IV 09/08 1714 1652 Metoprolol Tartrate 25 MG BID 09/08 2200 AC PO Metoprolol Tartrate 12.5 MG ONCE ONE 09/08 1545 DC 09/08 PO 09/08 1546 1653 Metoprolol Tartrate 12.5 MG BID 09/07 1148 DC 09/08 PO 0954 Montelukast Sodium 10 MG QPM 09/07 2200 AC 09/07 PO 2117 Past History Travel History Traveled to [place] past 21 day No Medical History Neurological: CVA, cva-left sided paralysis EENT: NONE Cardiovascular: AFIB, CAD, CHF, hypertension, hyperlipidemia, myocardial infarction, PCI to LAD and LCx with JUANJOSE in 2007 Respiratory: asthma Gastrointestinal: G-TUBE Hepatic: NONE Renal: chronic kidney disease Musculoskeletal: MUSCLE WEAKNESS Psychiatric: NONE Endocrine: hypothyroidism Blood Disorders: anemia Cancer(s): NONE 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 Longterm Facility Services at Home: Intravenous Care, Nursing, Tube Feedings Smoking Status: Never Smoked Functional Ability ADLs Independent: dressing, eating, toileting, bathing. Ambulation: independent, cane Review of Systems Review of Systems: Not obtainable given clinical condition. Exam & Diagnostic Data Vital Signs and I&O Vital Signs Date Time Temp Pulse Resp B/P Pulse O2 O2 Flow FiO2 Ox Delivery Rate 09/08 1653 104 110/76 09/08 1600 96 Nasal 2.0L Cannula 09/08 1559 97.9 104 20 110/76 97 Nasal Cannula 09/08 0954 120 128/78 09/08 0822 97.2 120 32 128/78 96 Room Air 09/08 0804 91 Room Air 09/08 0000 96 Nasal 2.0L Cannula 09/07 2300 98.2 113 20 124/80 96 Nasal 2.0L Cannula 09/07 2141 Nasal 2.0L Cannula 09/07 2116 113 124/80 09/07 1915 106 132/84 Intake & Output 09/08 1600 09/08 0400 09/07 04009/06 0400 Intake Total 830 410 510 Output Total 100 Balance 830 310 510 Intake, IV 830 370 510 Intake, Oral 0 0 Intake, Tube 40 Irrigant Number 3 1 Bowel Movements Output, Urine 100 Patient 146 lb 146 lb Weight Physical Exam: Ill appearing, lethargic, arousable. Dysarthric; cannot communicate. Anicteric. Poor dentition. Dry mucous membranes. Oxygen via nasal cannula. Neck is supple without mass, thyromegaly, adenopathy. Heart with irregular rhythm. Lungs with decreased breath sounds. Abdomen is soft and nondistended with normal bowel sounds, and tube intact, no tenderness (right upper quadrant especially), mass or organomegaly. No edema. Results Pertinent Lab Results: Laboratory Tests 09/08 09/07 09/07 0607 1604 1446 Chemistry Sodium (137 - 145 mmol/L) 143 Potassium (3.5 - 5.1 mmol/L) 4.4 Chloride (98 - 107 mmol/L) 107 Carbon Dioxide (22 - 30 mmol/L) 21 L Anion Gap (5 - 16) 15 BUN (7 - 17 mg/dL) 25 H Creatinine (0.5 - 1.0 mg/dL) 1.3 H Estimated GFR (>60 ml/min) 40 L BUN/Creatinine Ratio (7 - 25 %) 19.2 Phosphorus (2.5 - 4.5 mg/dL) 4.3 Magnesium (1.6 - 2.3 mg/dL) 1.6 Troponin I (< 0.11 ng/ml) 0.03 Toxicology Digoxin (0.8 - 2.0 ng/mL) 0.4 L Urines Urine Color (YEL,AMB,STR) YEL Urine Clarity (CLEAR) HAZY H Urine pH (5.0 - 8.0) 6.0 Ur Specific Clark (1.001 - 1.035) >= 1.030 Urine Protein (NEG,<30 MG/DL) >=300 H Urine Ketones (NEG) NEG Urine Nitrite (NEG) NEG Urine Bilirubin (NEG) NEG Urine Urobilinogen (0.1 - 1.0 EU/dl) 0.2 Ur Leukocyte Esterase (NEG) MOD H Ur Microscopic SEDIMENT EXAMINED Urine RBC (0 - 5 /HPF) 3-5 Urine WBC (0 - 2 /HPF) PACKD H Urine Hemoglobin (NEG) MOD H Urine Glucose (N MG/DL) NEG 09/07 09/07 09/07 0704 0652 0245 Blood Gas pH (7.35 - 7.45 PH) 7.41 pCO2 (35 - 45 TORR) 32 L pO2 (80 - 100 TORR) 101 H HCO3 (21 - 28 MEQ/L) 20 L ABG O2 Sat (Measured) (>96.0 %) 97.0 P-50 (Temp Corrected) Y Carboxyhemoglobin (1.5 - 5.0 %) 0.3 L O2 Concentration % 2 LPM Temperature (97.0 - 100.0 FARH) 97.6 O2 Delivery Method N/C Chemistry Lactic Acid Cancelled Troponin I (< 0.11 ng/ml) 0.05 TSH (0.270 - 4.200 uIU/mL) 6.740 H Free T4 (0.78 - 2.44 ng/dL) 1.69 Cortisol AM Sample (4.46 - 22.7 ug/dL) 27.6 H Miscellaneous Phlebotomy Draw Site RIGHT RADIAL 09/07 37 Chemistry Sodium (137 - 145 mmol/L) 145 Potassium (3.5 - 5.1 mmol/L) 4.7 Chloride (98 - 107 mmol/L) 105 Carbon Dioxide (22 - 30 mmol/L) 26 Anion Gap (5 - 16) 14 BUN (7 - 17 mg/dL) 29 H Creatinine (0.5 - 1.0 mg/dL) 1.3 H Estimated GFR (>60 ml/min) 40 L BUN/Creatinine Ratio (7 - 25 %) 22.3 Glucose (65 - 99 mg/dL) 129 H Calcium (8.4 - 10.2 mg/dL) 9.3 Phosphorus (2.5 - 4.5 mg/dL) 4.3 Magnesium (1.6 - 2.3 mg/dL) 1.8 Total Bilirubin (0.2 - 1.3 mg/dL) 0.7 AST (14 - 36 U/L) 17 ALT (9 - 52 U/L) 24 Alkaline Phosphatase (<127 U/L) 70 Troponin I (< 0.11 ng/ml) 0.04 Sex-T-Mnldtjcxgxk Pept (<125 pg/mL) 84563 H Total Protein (6.3 - 8.2 g/dL) 6.7 Albumin (3.5 - 5.0 g/dL) 3.5 Globulin (1.9 - 4.2 gm/dL) 3.2 Albumin/Globulin Ratio (1.1 - 2.2 %) 1.1 Coagulation PT (9.4 - 12.5 SEC) 20.3 H INR (0.90 - 1.19) 1.95 H APTT (25 - 37 SEC) 34 Hematology CBC w Diff NO MAN DIFF REQ WBC (4.8 - 10.8 /CUMM) 7.9 RBC (4.20 - 5.40 /CUMM) 4.59 Hgb (12.0 - 16.0 G/DL) 14.6 Hct (37 - 47 %) 44.7 MCV (81.0 - 99.0 FL) 97.5 MCH (27.0 - 31.0 PG) 31.7 H RDW (11.5 - 14.5 %) 13.2 Plt Count (130 - 400 /CUMM) 201 MPV (7.4 - 10.4 FL) 9.5 Gran % (42.2 - 75.2 %) 72.1 Lymphocytes % (20.5 - 51.1 %) 15.7 L Monocytes % (1.7 - 9.3 %) 7.1 Eosinophils % (0 - 5 %) 4.9 Basophils % (0.0 - 2.0 %) 0.2 Absolute Granulocytes (1.4 - 6.5 /CUMM) 5.7 Absolute Lymphocytes (1.2 - 3.4 /CUMM) 1.2 Absolute Monocytes (0.10 - 0.60 /CUMM) 0.6 Absolute Eosinophils (0.0 - 0.7 /CUMM) 0.4 Absolute Basophils (0.0 - 0.2 /CUMM) 0 PUBS MCHC (33.0 - 37.0 G/DL) 32.5 L Toxicology Digoxin (0.8 - 2.0 ng/mL) 0.5 L Imaging/Other Studies: Ultrasound: IMPRESSION: Gallbladder contains multiple stones and sludge, and gallbladder wall remains abnormally thickened. These findings were present on 02/18/2016. The tissue technologist reports uncertainty regarding a Abbott's sign due to patient's nonverbal status. The common bile duct is incompletely visualized but the visualized proximal portion is 0.5 cm, compared to 1.3 cm on 02/18/2016. HIDA: IMPRESSION: Nonvisualization the gallbladder is evidence of an obstructed cystic duct and strong evidence to suggest the diagnosis of acute cholecystitis. The common bile duct is patent. Liver function appears normal. The study was limited due to the patient's inability to cooperate with initial images immediately following injection, but nonetheless the findings are strongly suspicious acute cholecystitis. Assessment/Plan Assessment/Recommendations: 1. Cholangitis in March 2015 secondary to choledocholithiasis, treated with stent (because of concurrent anticoagulation). Per daughter, the stent/stones were removed at [facility] in April during her stroke hospitalization, when anticoagulation was briefly reversed. I have asked for [facility] records to verify. LFTs are normal now, and CBD is smaller then in March on ultrasound. There should be no need for further biliary investigation/manipulation. 2. Abnormal gallbladder on US/HIDA: There is no clinical acute cholecystitis; no pain, fever, leukocytosis. The gallbladder wall is chronically thickened, probably representing chronic cholecystitis (and of note, despite this, the cystic duct and contracted gallbladder were opacified at time of ERCP, demonstrating patency). The bile flow is likely diverted by sphincterotomy, excluding the gallbladder, making it nonfunctional and giving the nonvisualization on HIDA (in addition to suspected chronic inflammatory/fibrotic changes). There is no need for antibiotics or for gallbladder drainage, and certainly not surgery in this debilitated/anticoagulated patient. There is no reason to suspect cholecystitis as a contributor to the patient's current clinical status. Should you wish, a confirmatory consultation can be asked of Dr. Cleaning, who saw her during her initial hospitalization in March. Would resume tube feeds, and continue anticoagulation. Please call or reconsult as needed. Copies To: GERALD PADILLA,RHONDA Kwon Consult Acknowledgment - Thank you for your consult request.
[2016-09-08 23:26] VITALS: BP 108/62
[2016-09-09 03:20] LABS: PTT 58 SEC (25-37)
--- NOTE | 2016-09-09 06:34 | Patient Discharge Instructions ---
Discharge Instructions General Discharge Information You were seen/treated for: Altered Mental Status Watch for these problems: Fever, nausea, vomiting, chills, weakness, increased generalized edema. Palpitations. Chest pain. Shortness of breath. If you have any adverse reactions from any of the medications prescribed please inform your primary care physician and you may be required to come back to the emergency department. Thank you for letting us be part of your care. Special Instructions: Please follow-up with your primary care physician on 09/14/2016. This is for a post hospital discharge follow-up. Please follow-up with the disability attorney on 09/17/2016. We have provided you with a referral. Please continue tube feeds. A Modified Barium Swallow Evaluation has been recomended once your mentation improves. Diet Recommended Diet: Via G Tube for now. Activity Activity Self Limited: Yes (As Tolerated) Acute Coronary Syndrome Inclusion Criteria At DC or during hospital stay patient has or had the following: ACS DIAGNOSIS No Discharge Core Measures Meds if any: Prescribed or Continued at Discharge Meds if any: NOT Prescribed or Continued at Discharge Congestive Heart Failure Inclusion Criteria At DC or during hospital stay patient has or had the following: CHF DIAGNOSIS No Discharge Core Measures Meds if any: Prescribed or Continued at Discharge Meds if any: NOT Prescribed or Continued at Discharge Cerebrovascular accident Inclusion Criteria At DC or during hospital stay patient has or had the following: CVA/TIA Diagnosis No Discharge Core Measures Meds if any: Prescribed or Continued at Discharge Meds if any: NOT Prescribed or Continued at Discharge Venous thromboembolism Inclusion Criteria VTE Diagnosis No VTE Type NONE VTE Confirmed by (Test) NONE Discharge Core Measures - Per Current guidelines, there needs to be overlap - treatment for the first 5 days of Warfarin therapy. - If discharged on Warfarin prior to 5 days of - overlap therapy, the patient will need to be - assessed for post discharge needs including - *Post discharge parental anticoagulation - *Warfarin and/or parental anticoagulation education - *Follow up date to check INR post discharge At least 5 days overlap therapy as Inpatient No Meds if any: Prescribed or Continued at Discharge Note: Overlap Therapy is Warfarin and Anticoagulant Meds if any: NOT Prescribed or Continued at Discharge
--- NOTE | 2016-09-09 06:39 | PN- Housestaff ---
Subjective Follow-up For: AMS Biliary Sepsis Cholecystitis Tele-Events Since Last Visit: A Fib (102-124) PVC 140-160 Had a 5 beat at 4 Subjective: Ms Forbes was seen and examined this morning. Resting comfortably in bed. Appears a little more alert than deepika encounter although unable to articulate how she's feeling. Patient is on supplemental oxygen by nasal cannula. Patient denies the presence of any pain in her abdomen. She does state that she does have some pain in her right upper neck by way of pointing. Patient is alert and oriented 3. Patient denies any fever, chills, nausea, vomiting. Review of Systems Constitutional: Reports: see HPI. Denies: chills, diaphoresis, fever, malaise. Objective Last 24 Hrs of Vital Signs/I&O Vital Signs Date Time Temp Pulse Resp B/P Pulse O2 O2 Flow FiO2 Ox Delivery Rate 09/09 08 96.4 113 20 120/70 97 Nasal Cannula 09/09 0000 Nasal 2.0L Cannula 09/08 2326 97.8 127 20 108/62 97 Nasal Cannula 09/08 2129 141 09/08 1925 95 Room Air 09/08 1653 104 110/76 09/08 1600 96 Nasal 2.0L Cannula 09/08 1559 97.9 104 20 110/76 97 Nasal Cannula 09/08 0954 120 128/78 09/08 0822 97.2 120 32 128/78 96 Room Air Intake & Output 09/09 1600 09/09 0800 09/09 0000 Intake Total 480 760 Output Total 120 Balance 480 640 Intake, IV 480 760 Intake, Oral 0 0 Number 1 2 Bowel Movements Output, 120 Gastric Drainage Patient 69.626 kg Weight Physical Exam General Appearance: Alert, Oriented X3, Cooperative Cardiovascular: Normal S1, Normal S2, Irregular rate and Rhythm Lungs: Clear to Auscultation Abdomen: Normal Bowel Sounds, Soft, No Tenderness Neurological: Normal Speech Extremities: No Edema Current Medications: Current Medications Sig/Jake Start time Last Medication Dose Route Stop Time Status Admin Acetaminophen 650 MG Q6P PRN 09/07 0815 AC 09/08 PO 0241 Albuterol Sulfate 3 ML BID 09/07 2200 AC 09/08 INH 1925 Ampicillin Sodium/ 3,000 MG Q6 09/07 0600 AC 09/09 Sulbactam Sodium IV 0550 Sodium Chloride 100 ML Apixaban 5 MG BID 09/07 1018 DC 09/08 PO 0954 Calcium Carbonate 500 MG BID 09/07 1018 AC 09/08 PO 2129 Cholecalciferol 1,000 IU DAILY 09/07 1019 AC 09/08 PO 0954 Dextrose/Sodium 1,000 ML Q13H 09/08 1845 AC 09/08 Chloride IV 09/09 2044 1942 Dextrose/Sodium 1,000 ML Q13H 09/07 1330 DC 09/07 Chloride IV 09/08 1529 1329 Digoxin 0.0625 MG 1700 09/07 1700 AC 09/08 PO 1652 Fluticasone 2 PUF BID 09/07 1022 AC 09/08 Propionate INH 2128 Heparin Sodium 25,000 UNIT Q24H 09/08 1845 AC 09/08 (Porcine) IV 2034 Sodium Chloride 500 ML Levothyroxine Sodium 0.1 MG DAILY AC 09/07 1038 AC 09/09 PO 0550 Lorazepam 1 MG ONCE ONE 09/08 1130 CAN IV 09/08 1131 Lorazepam 0.5 MG ONCE ONE 09/08 1130 DC 09/08 IV 09/08 1131 1145 Lorazepam 0.5 MG Q8H PRN 09/07 1030 AC 09/09 PO 09/14 1029 0550 Magnesium Sulfate 1 GM ONCE ONE 09/08 1315 DC 09/08 Dextrose/Water 100 ML IV 09/08 1714 1652 Metoprolol Tartrate 25 MG BID 09/08 2200 AC 09/08 PO 212 Metoprolol Tartrate 12.5 MG ONCE ONE 09/08 1545 DC 09/08 PO 09/08 1546 1653 Metoprolol Tartrate 12.5 MG BID 09/07 1148 DC 09/08 PO 0954 Montelukast Sodium 10 MG QPM 09/07 220 09/08 PO 2128 Last 24 Hrs of Lab/Hardy Results Last 24 Hrs of Labs/Mics: Laboratory Tests 09/09/16 0600: Anion Gap 20 H, Estimated GFR 36 L, BUN/Creatinine Ratio 20.0, Phosphorus 5.4 H, Magnesium 2.0, CBC w Diff Pending, WBC Pending, RBC Pending, Hgb Pending, Hct Pending, MCV Pending, MCH Pending, RDW Pending, Plt Count Pending, MPV Pending, PUBS MCHC Pending 09/09/16 0235: APTT 58 H Orders Radiology Findings: PATIENT: CHACHO FORBES PRESENT AGE: 76 PATIENT ACCOUNT NO: [id number] : 39 LOCATION: [facility] ORDERING PHYSICIAN: ALEX STODDARD MD SERVICE DATE: 09/09/16- EXAM TYPE: CAT - CT HEAD WO IV CONTRAST EXAMINATION: CT HEAD WITHOUT CONTRAST CLINICAL INFORMATION: Decreased mentation. Rule out new stroke. COMPARISON: Head CT from 09/07/2016. TECHNIQUE: Contiguous axial imaging was performed from the skull base to vertex without intravenous administration of contrast. DLP: 743.8 mGy-cm. FINDINGS: There is no evidence of acute intracranial hemorrhage or territorial infarction. No abnormal mass effect or midline shift is seen. Encephalomalacia from a chronic infarct involving the right frontoparietal white matter and right basal ganglia plus the subinsular region again noted. Focal volume loss and ex vacuo dilatation of the right lateral ventricle are stable. No extra-axial fluid collections are identified. There is no hydrocephalus. Small chronic lacunar infarcts are visible within the basal ganglia. There is Wallerian degeneration in the right aspect of the upper brainstem. Mild chronic white matter microangiopathic changes are again noted. Small chronic infarct is again visible in the inferior right cerebellar hemisphere. The osseous structures and soft tissues are normal. The mastoid air cells and visualized portions of the paranasal sinuses are well aerated. IMPRESSION: No acute territorial infarction or intracranial hemorrhage. Chronic right MCA territorial infarction. Mild small vessel ischemic changes and scattered deep lara matter lacunar infarcts, as noted on prior imaging. Chronic right cerebellar infarct. The possibility of a focal acute ischemic process cannot be conclusively excluded on the basis of this study. DICTATED BY: ANIBAL JAMA MD DATE/TIME DICTATED:09/09/16900 LEAD TINNER:RICHA DATE/TIME TRANSCRIBED:09/09/16900 CONFIDENTIAL, DO NOT COPY WITHOUT APPROPRIATE AUTHORIZATION. <Electronically signed in Other Vendor System> SIGNED BY: ANIBAL JAMA MD [id number] Miscellaneous Findings: PATIENT: CHACHO FORBES PRESENT AGE: 76 PATIENT ACCOUNT NO: [id number] : 39 LOCATION: [facility] ORDERING PHYSICIAN: ALEX STODDARD MD SERVICE DATE: 09/07/16-1410 EXAM TYPE: US - US-COMPLETE ABDOMEN EXAMINATION: US ABDOMEN COMPLETE CLINICAL INFORMATION: Lethargy and decreased mental status. Evaluate for biliary tract pathology.. COMPARISON: Abdomen ultrasound from 03/14/2015 and 02/18/2016 TECHNIQUE: Real-time imaging of the abdominal viscera. FINDINGS: PANCREAS: The pancreas is partially obscured by bowel gas. The visualized portions of the pancreatic head and neck are unremarkable. ABDOMINAL AORTA: There is atherosclerotic calcification of the wall of the proximal abdominal aorta. INFERIOR VENA CAVA: Visualized portions are normal. LIVER: Liver has normal size, contour and echotexture. A 1.1 x 1.4 x 1.1 cm simple hepatic cyst is present superior to the gallbladder fossa. No dilated intrahepatic ducts are seen. GALLBLADDER: Gallbladder contains multiple calculi and sludge. Gallbladder wall is approximately 5-6 mm thick. There is no pericholecystic fluid. The remote sensing technologist reports inability to assess for a Abbott's sign due to patient's nonverbal status. COMMON BILE DUCT: Normal in caliber measuring 0.5 cm in diameter. RIGHT KIDNEY: The cortex of the right kidney is diffusely atrophied. The kidney measures 7.2 cm in length. A 2.5 x 2.3 x 2 cm simple cyst is present within the interpolar region. No hydronephrosis or nephrolithiasis. LEFT KIDNEY: Left kidney measures 10.7 cm in length. 6.9 x 5 x 5.1 cm simple cortical cyst arises from the left lower pole. No hydronephrosis or nephrolithiasis. SPLEEN: Normal. The spleen measures 10 cm in maximum dimension. FREE FLUID: None. IMPRESSION: Gallbladder contains multiple stones and sludge, and gallbladder wall remains abnormally thickened. These findings were present on 02/18/2016. The remote sensing technologist reports uncertainty regarding a Abbott's sign due to patient's nonverbal status. Therefore, cholecystitis is considered possible. If clinically warranted, pursue hepatobiliary imaging to determine whether the cystic duct is obstructed. The common bile duct is incompletely visualized but the visualized proximal portion is 0.5 cm, compared to 1.3 cm on 02/18/2016. DICTATED BY: JESSIE HESS MD DATE/TIME DICTATED:09/07/161441 LEAD TINNER:RICHA DATE/TIME TRANSCRIBED:09/07/161441 CONFIDENTIAL, DO NOT COPY WITHOUT APPROPRIATE AUTHORIZATION. 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 Abdominal US done yesterday: Recommend additional workup to rule out cholecystitis. HIDA done yesterday Continue on telemetry for close monitoring Patient scheduled to go for CT on 09/09/2016 to rule out worsening stroke, showed no acute territorial infarction or intracranial hemorrhage.Chronic right cerebellar infarct. Head of bed elevated. Patient continued to get medications via G tube. Also obtained a consult from the GI service. Rule out worsening Cholecystitis. #Atypical chest pain: Rule out ACS Initial troponin 0.04, 0.05, 0.03. Will obtain troponins to rule out ACS # ?Intra-abdominal infectious process. CBC 9.2. Patient's currently afebrile. Continue Unasyn for possible aspiration, continue Unasyn 09/09/2016. Urine culture, sputum culture, and blood cultures: Cultures reveal no evidence of growth after day 1 incubation. Begin the patient on Augmentin 500 mg twice a day (adjested for renal clearance) . #History of CHF Will hold off Lasix and metoprolol drop in blood pressure Patient was running tachycardic and metoprolol dose was adjusted to 25 mg twice a day. Digoxin and BB started yeaterday, other cardiac medications. AICD interrogation: reveals no recorded episodes of VT/VF #Atrial Fibrillation Continue Eliquis this evening at 22.00, Discontinue Heparin IV once Eliquis is started. #Diet Tube feeds started this a.m. running at 20 mL per hour. Likely will need a swallow eval on 09/10/2016. Can increase rate on 09/10/2016 #DVT Prophylaxis Continue Eliquis #Code DNR DNI . Problem List: 1. Altered mental status 2. Unresponsiveness 3. Sepsis 4. Pneumonia 5. Choledocholithiasis 6. Afib Pain Ratin Pain Location: Right Upper Neck Pain Goal: Remain pain free Pain Plan: Tylenol PRN Tomorrow's Labs & Rationales: BEP: Electrolytes in the setting of rising creatinine CBC: Differential any evidence of acute infection rule out worsening infection by monitoring cell count.
[2016-09-09 08:01] VITALS: BP 120/70
[2016-09-09 08:05] LABS: ABSOLUTE BASOPHIL COUNT 0.1 /CUMM (0.0-0.2); ABSOLUTE EOSINOPHIL COUNT 0.1 /CUMM (0.0-0.7); ABSOLUTE GRANULOCYTE CT 6.2 /CUMM (1.4-6.5); ABSOLUTE LYMPH COUNT 1.8 /CUMM (1.2-3.4); ABSOLUTE MONOCYTE COUNT 1.1 /CUMM (0.10-0.60); BASOPHIL % 0.8 % (0.0-2.0); EOSINOPHIL % 1.1 % (0-5); GRANULOCYTE % 67.3 % (42.2-75.2); HEMATOCRIT 40.2 % (37-47); MEAN CORPUSCULAR HGB 31.9 PG (27.0-31.0); MEAN CORPUSCULAR HGB CONC 33.1 G/DL (33.0-37.0); MEAN CORPUSCULAR VOLUME 96.3 FL (81.0-99.0); PLATELET COUNT 242 /CUMM (130-400); RBC DISTRIBUTION WIDTH 13.6 % (11.5-14.5); RED BLOOD CELL CT 4.17 /CUMM (4.20-5.40); WHITE BLOOD CELL COUNT 9.2 /CUMM (4.8-10.8)
--- NOTE | 2016-09-09 09:06 | CT SCAN REPORT ---
EXAMINATION: CT HEAD WITHOUT CONTRAST CLINICAL INFORMATION: Decreased mentation. Rule out new stroke. COMPARISON: Head CT from 09/07/2016. TECHNIQUE: Contiguous axial imaging was performed from the skull base to vertex without intravenous administration of contrast. DLP: 743.8 mGy-cm. FINDINGS: There is no evidence of acute intracranial hemorrhage or territorial infarction. No abnormal mass effect or midline shift is seen. Encephalomalacia from a chronic infarct involving the right frontoparietal white matter and right basal ganglia plus the subinsular region again noted. Focal volume loss and ex vacuo dilatation of the right lateral ventricle are stable. No extra-axial fluid collections are identified. There is no hydrocephalus. Small chronic lacunar infarcts are visible within the basal ganglia. There is Wallerian degeneration in the right aspect of the upper brainstem. Mild chronic white matter microangiopathic changes are again noted. Small chronic infarct is again visible in the inferior right cerebellar hemisphere. The osseous structures and soft tissues are normal. The mastoid air cells and visualized portions of the paranasal sinuses are well aerated. IMPRESSION: No acute territorial infarction or intracranial hemorrhage. Chronic right MCA territorial infarction. Mild small vessel ischemic changes and scattered deep lara matter lacunar infarcts, as noted on prior imaging. Chronic right cerebellar infarct. The possibility of a focal acute ischemic process cannot be conclusively excluded on the basis of this study.
--- NOTE | 2016-09-09 10:56 | PN- Pulmonary ---
Subjective HPI/Critical Care Issues: Ms Forbes was seen and examined this morning. Resting comfortably in bed. Appears a little more alert than deepika encounter although unable to articulate how she's feeling. Patient is on supplemental oxygen by nasal cannula. Patient denies the presence of any pain in her abdomen. She does state that she does have some pain in her right upper neck by way of pointing. Patient is alert and oriented 3. Patient denies any fever, chills, nausea, vomiting. Review of Systems Constitutional: Reports: see HPI. Denies: chills, diaphoresis, fever, malaise. Objective Current Medications: Current Medications Sig/Jake Start time Last Medication Dose Route Stop Time Status Admin Acetaminophen 650 MG Q6P PRN 09/07 0815 AC 09/08 PO 0241 Albuterol Sulfate 3 ML BID 09/07 2200 AC 09/09 INH 0911 Ampicillin Sodium/ 3,000 MG Q6 09/07 0600 AC 09/09 Sulbactam Sodium IV 0550 Sodium Chloride 100 ML Apixaban 5 MG BID 09/07 1018 DC 09/08 PO 0954 Calcium Carbonate 500 MG BID 09/07 1018 AC 09/09 PO 0921 Cholecalciferol 1,000 IU DAILY 09/07 1019 AC 09/09 PO 0921 Dextrose/Sodium 1,000 ML Q13H 09/08 1845 AC 09/08 Chloride IV 09/09 2044 1942 Dextrose/Sodium 1,000 ML Q13H 09/07 1330 DC 09/07 Chloride IV 09/08 1529 1329 Digoxin 0.0625 MG 1700 09/07 1700 AC 09/08 PO 1652 Fluticasone 2 PUF BID 09/07 1022 AC 09/08 Propionate INH 2128 Heparin Sodium 25,000 UNIT Q24H 09/08 1845 AC 09/08 (Porcine) IV 2034 Sodium Chloride 500 ML Levothyroxine Sodium 0.1 MG DAILY AC 09/07 1038 AC 09/09 PO 0550 Lorazepam 1 MG ONCE ONE 09/08 1130 CAN IV 09/08 1131 Lorazepam 0.5 MG ONCE ONE 09/08 1130 DC 09/08 IV 09/08 1131 1145 Lorazepam 0.5 MG Q8H PRN 09/07 1030 AC 09/09 PO 09/14 1029 0550 Magnesium Sulfate 1 GM ONCE ONE 01/10 1315 DC 09/08 Dextrose/Water 100 ML IV 09/08 1714 1652 Metoprolol Tartrate 25 MG BID 09/08 2200 AC 09/09 PO 0921 Metoprolol Tartrate 12.5 MG ONCE ONE 09/08 1545 DC 09/08 PO 09/08 1546 1653 Metoprolol Tartrate 12.5 MG BID 09/07 1148 DC 09/08 PO 0954 Montelukast Sodium 10 MG QPM 09/07 2199 AC 09/08 PO 2129 Vital Signs & I&O Last 24 Hrs of Vitals and I&O: Vital Signs Date Time Temp Pulse Resp B/P Pulse O2 O2 Flow FiO2 Ox Delivery Rate 09/09 0921 113 120/70 09/09 0913 96 Nasal 2.5L Cannula 09/09 0801 96.4 113 20 120/70 97 Nasal Cannula 09/09 0800 Nasal 2.0L Cannula 09/09 0000 Nasal 2.0L Cannula 09/08 2326 97.8 127 20 108/62 97 Nasal Cannula 09/08 2129 141 09/08 1925 95 Room Air 09/08 1653 104 110/76 09/08 1600 96 Nasal 2.0L Cannula 09/08 1559 97.9 104 20 110/76 97 Nasal Cannula Intake & Output 09/09 1600 09/09 0800 09/09 0000 Intake Total 480 760 Output Total 120 Balance 480 640 Intake, IV 480 760 Intake, Oral 0 0 Number 1 2 Bowel Movements Output, 120 Gastric Drainage Patient 154 lb Weight Impression/Plan Impression/Plan Impression/Plan: Physical Exam General Appearance Alert, Mild Distress, orineted to person and place Skin No Significant Lesion HEENT Atraumatic, Dry mucous membranes Neck Supple, +2 Carotid Pulse wo Bruit Lymphatic Cervical nl Cardiovascular Regular Rate, Normal S1, Normal S2 Lungs Clear to Auscultation Abdomen Normal Bowel Sounds, Soft, No Tenderness Neurological left-sided weakness noted on upper and lower extremities. Extremities No Clubbing, No Cyanosis Vascular Pulses Symmetrical This is a 75-year-old lady with severe systolic dysfunction of the heart, severe cardiomegaly, paroxysmal atrial fibrillation, recurrent heart failure in the past, aortic stenosis, hypothyroidism, hypertension, hyperlipidemia, Sig gall stone pancreatitis with choledocholithiasis with enterococci bacteremia in the past with s/p ercp, pt on eloquis for afib with Coronary artery disease, status post JUANJOSE, Unfortunately had developed a larged rt mca stroke few months ago admitted to [facility] with left sided paralysis with total care and on peg tube with on off po feeding, Total care in snf, Now has * Altered mental status appears multifactorial (ongoing small vessel disease, vs new stroke, sepsis appears unlikely ). CT head repeat shows extensive small vessel disease * SIg on off apnea and waxing and waning of consiousness with with aspiration vs dehydration, rule out sepsis With transient hypothermia (pt hypothyroid) * Previous biliary sepsis with choledocholithiasis with previous stent and subsequent ercp and spincterotomy and removal of stones at [facility] in late 2015, with normal lfts now, with gall stones in the GB with nonvisualizatin of GB in HIDA could be due to spincterotomy (see GI note) * Prob sig central apnea without hypercarbia * PRob ongoing small vessel disease * Ischemic cardiomyopathy status post AICD, with health center manager lad and lcx 2007 * Atrial fibrillation on Eliquis * Essential hypertension * Moderate aortic stenosis by echocardiogram * H/o Celiac disease * Chronic systolic heart failure stable * CKD with mild worsening renal failure * Hypothyroid on supp * Chronic venous insuff * Sig valvular heart disease * Asthma stable REC Discussed with daughter and she wishes no surg or invasive procedures for GB if worse she will consider palliation Cancel surg eval if they have not seen her yet Cont antibiotics, switch to augmentin 875 bid Start low flow tube feeding and cont ivf till am Use g tube for all the meds Cont all the cardiac meds Maintainece ivf with d5 .45 ns at 60 cc per hour and dc once tube feeding is upto her usual dose Keep hob up GI and Cardio eval appretiated PT is dnr and dni with no sig aggresive care Prog poor Discussed with daughter today and she wishes conservative care and upon return to [facility] will consider Do not hospitalize order
[2016-09-09 11:37] LABS: PTT 81 SEC (25-37)
--- NOTE | 2016-09-09 11:41 | NUR ---
Speech therapy: Orders for swallow eval received, chart reviewed and d/w RN and MD. Pt's level of arousal is fluctuating with periods of unresponsiveness. Not appropriate for swallow evaluation at this time. COKE DRAWER HAND to monitor for ability to participate. Per family, pt was eating ground diet and nectar thick liquids PHARMACY GRADUATE INTERN and was hardly using the G tube for nutrition.
--- NOTE | 2016-09-09 11:47 | PN- Cardiology ---
Subjective Subjective: Still lethargic and confused but intermittently follows some simple commands. Unable to tell me if she was having any symptoms today. Objective Vital Signs and I&Os Vital Signs Date Time Temp Pulse Resp B/P Pulse O2 O2 Flow FiO2 Ox Delivery Rate 09/09 0921 113 120/70 09/09 0913 96 Nasal 2.5L Cannula 09/09 0801 96.4 113 20 120/70 97 Nasal Cannula 09/09 0800 Nasal 2.0L Cannula 09/09 0000 Nasal 2.0L Cannula 09/08 2326 97.8 127 20 108/62 97 Nasal Cannula 09/08 2129 141 09/08 1925 95 Room Air 09/08 1653 104 110/76 09/08 1600 96 Nasal 2.0L Cannula 09/08 1559 97.9 104 20 110/76 97 Nasal Cannula Intake & Output 09/09 1600 09/09 0800 09/09 0000 09/08 1600 09/08 0800 09/08 0000 Intake Total 480 760 350 480 410 Output Total 120 100 Balance 480 640 350 480 310 Intake, IV 480 760 350 480 370 Intake, Oral 0 0 0 0 Intake, Tube 40 Irrigant Number 1 2 2 1 1 Bowel Movements Output, 120 Gastric Drainage Output, Urine 100 Patient 154 lb 146 lb Weight Physical Exam: General: Lethargic without obvious distress Eyes: No obvious scleral icterus. HEENT: No jugular venous distention or abnormal jugular venous pulsations. Cardiovascular: Normal intensity S1/S2. Irregular. One out of 6 systolic murmur. ICD noted. Respiratory: No rales or rhonchi Abdomen: Soft, with no guarding, G-tube noted Musculoskeletal: No clubbing or cyanosis noted, no edema Skin: Warm Neurologic: Limited exam, decreased spontaneous movements on the left Current Medications: Current Medications Sig/Jake Start time Last Medication Dose Route Stop Time Status Admin Acetaminophen 650 MG Q6P PRN 09/07 0715 AC 09/08 PO 0241 Albuterol Sulfate 3 ML BID 09/07 2199 AC 09/09 INH 0911 Amoxicillin/ 500 MG Q12 09/09 2199 AC Clavulanate Potassium PO Amoxicillin/ 875 MG Q12 09/09 1114 DC Clavulanate Potassium PO Ampicillin Sodium/ 3,000 MG Q6 09/07 0600 DC 09/09 Sulbactam Sodium IV 0550 Sodium Chloride 100 ML Apixaban 5 MG BID 09/07 1018 DC 09/08 PO 0954 Calcium Carbonate 500 MG BID 09/07 1018 AC 09/09 PO 0921 Cholecalciferol 1,000 IU DAILY 09/07 1019 AC 09/09 PO 0921 Dextrose/Sodium 1,000 ML Q13H 09/08 1845 AC 09/08 Chloride IV 09/09 2044 1942 Dextrose/Sodium 1,000 ML Q13H 09/07 1330 DC 09/07 Chloride IV 09/08 1529 1329 Digoxin 0.0625 MG 1700 09/07 1700 AC 09/08 PO 1652 Fluticasone 2 PUF BID 09/07 1022 AC 09/08 Propionate INH 2128 Heparin Sodium 25,000 UNIT Q24H 09/08 1845 AC 09/08 (Porcine) IV 2034 Sodium Chloride 500 ML Levothyroxine Sodium 0.1 MG DAILY AC 09/07 1038 AC 09/09 PO 0550 Lorazepam 0.5 MG Q8H PRN 09/07 1030 09/09 PO 09/14 1029 0550 Magnesium Sulfate 1 GM ONCE ONE 09/08 1315 DC 09/08 Dextrose/Water 100 ML IV 09/08 1714 1652 Metoprolol Tartrate 25 MG BID 09/08 2200 AC 09/09 PO 0921 Metoprolol Tartrate 12.5 MG ONCE ONE 09/08 1545 DC 09/08 PO 09/08 1546 1653 Metoprolol Tartrate 12.5 MG BID 09/07 1148 WA 09/08 PO 0954 Montelukast Sodium 10 MG QPM 09/07 2200 09/08 PO 2129 Results Last 48 Hrs of Labs/Mics: Laboratory Tests 09/09/16 1105: APTT Pending 09/09/16 0600: Anion Gap 20 H, Estimated GFR 36 L, BUN/Creatinine Ratio 20.0, Phosphorus 5.4 H, Magnesium 2.0, CBC w Diff NO MAN DIFF REQ, RBC 4.17 L, MCV 96.3, MCH 31.9 H , RDW 13.6, MPV 10.0, Gran % 67.3, Lymphocytes % 19.4 L, Monocytes % 11.4 H, Eosinophils % 1.1, Basophils % 0.8, Absolute Granulocytes 6.2, Absolute Lymphocytes 1.8, Absolute Monocytes 1.1 H, Absolute Eosinophils 0.1, Absolute Basophils 0.1, PUBS MCHC 33.1 09/09/16 0235: APTT 58 H 09/08/16 0607: Anion Gap 15, Estimated GFR 40 L, BUN/Creatinine Ratio 19.2, Phosphorus 4.3, Magnesium 1.6, Digoxin 0.4 L 09/07/16 1604: Urine Color YEL, Urine Clarity HAZY H, Urine pH 6.0, Ur Specific [place] >= 1.030, Urine Protein >=300 H, Urine Ketones NEG, Urine Nitrite NEG, Urine Bilirubin NEG, Urine Urobilinogen 0.2, Ur Leukocyte Esterase MOD H, Ur Microscopic SEDIMENT EXAMINED, Urine RBC 3-5, Urine WBC PACKD H, Urine Hemoglobin MOD H, Urine Glucose NEG 09/07/16 1446: Troponin I 0.03 Microbiology 09/07 1604 URINE ROUT: Urine Culture - COMP Recent Imaging Studies: Telemetry tracings were personally reviewed and show atrial fibrillation with some aberrancy and mild tachycardia Abdominal ultrasound Gallbladder contains multiple stones and sludge, and gallbladder wall remains abnormally thickened. These findings were present on 02/18/2016. The lab technologist reports uncertainty regarding a Abbott's sign due to patient's nonverbal status. Therefore, cholecystitis is considered possible. If clinically warranted, pursue hepatobiliary imaging to determine whether the cystic duct is obstructed. The common bile duct is incompletely visualized but the visualized proximal portion is 0.5 cm, compared to 1.3 cm on 02/18/2016. ICD interrogation was reviewed with no reports of the VT/VF Assessment/Plan Assessment/Plan 1. Altered mental status 2. Possible pneumonia, question aspiration 3. CKD 4. Atrial fibrillation on Eliquis 5. Acute CVA 03/2016 (while off AC for GI procedure) tx at [place], s/p PEG tube for dysphagia 6. History of systolic congestive heart failure with myocardial scar/ischemic cardiomyopathy 7. CAD with PCI to the LAD/LCx 2007 8. AICD in situ (Medtronic) 9. History of choledocholithiasis/cholangitis 10. History of statin intolerance Patient still appears encephalopathic, etiology not entirely clear. GI input reviewed and felt not likely due to cholecystitis. ICD interrogation reveals no recorded episodes of VT/VF. Can continue on the low-dose digoxin and beta katina and allow for some mild tachycardia for now. Continue on uninterrupted anticoagulation, continue IV heparin and resume oral anticoagulation when possible. Echocardiogram is still pending. Patient's condition is guarded and per report family prefers overall conservative approach. Aneesh Hall MD [facility] Continue telemetry? Yes
[2016-09-09 15:41] VITALS: BP 130/80
--- NOTE | 2016-09-09 17:35 | NUR ---
LATE ENTRY FOR 09/08/15 - PATIENT HAD EPISODE OF REPORTED VTACH BY TELE @ 1237 (2 BEAT) & 1247 (7 BEAT); REPORTED TO DR. STODDARD. MAGNESIUM TO BE REPLETED. PT NOT ACTUALLY HAVING VTACH; SHE WAS SWITCHING BUNDLES & HAVING TACHYCARDIA. LOPRESSOR DOSE TO BE INCREASED @ 1800. PT'S BP WAS 116/60, HR 121, TEMP 98.9 RECTALLY. NO FURTHER ORDERS.
[2016-09-10 01:11] VITALS: BP 120/67
--- NOTE | 2016-09-10 06:37 | PN- Housestaff ---
Subjective Follow-up For: AMS Tele-Events Since Last Visit: AFIB 101-118, PVC triplets. 458 am 6 beat run Subjective: Patient seen and examined this morning resting comfortably in bed. Appears to be morning. However continues to improve in mental alertness and responsiveness. Patient denies any pain at the moment. She continues to have supplemental oxygen although takes it off when adjusted. Patient denies any fever, chills, nausea, vomiting. She currently has tube feeds running at 20 mg per hour. Review of Systems Constitutional: Reports: see HPI. Denies: chills, fever, weakness. Objective Last 24 Hrs of Vital Signs/I&O Vital Signs Date Time Temp Pulse Resp B/P Pulse O2 O2 Flow FiO2 Ox Delivery Rate 09/10 0111 98.6 110 20 120/67 97 09/10 0000 95 Nasal 2.0L Cannula 09/09 2230 110 124/70 09/09 1945 96 Nasal 2.0L Cannula 09/09 1608 111 130/80 09/09 1541 98.0 111 18 130/80 98 Nasal 2.5L Cannula 09/09 0921 113 120/70 09/09 0913 96 Nasal 2.5L Cannula 09/09 0801 96.4 113 20 120/70 97 Nasal Cannula 09/09 0800 Nasal 2.0L Cannula Intake & Output 09/10 0800 09/10 0000 09/09 1600 Intake Total 280 868.4 772.8 Output Total Balance 280 868.4 772.8 Intake, IV 328.4 586.8 Intake, Other 180 120 Intake, Tube 160 240 66 Feeding Intake, Tube 120 120 Irrigant Number 1 2 Bowel Movements Physical Exam General Appearance: Alert, Oriented X3, Cooperative Cardiovascular: Normal S1, Normal S2, Irregular Rate and Rhythm Lungs: Expiratory Wheezing Abdomen: Normal Bowel Sounds, Soft, No Tenderness Neurological: Right Lower Extremity Sttength 4/5 Extremities: No Edema Current Medications: Current Medications Sig/Jake Start time Last Medication Dose Route Stop Time Status Admin Acetaminophen 650 MG Q6P PRN 09/07 0815 AC 09/08 PO 0241 Albuterol Sulfate 3 ML BID 09/07 2199 AC 09/09 INH 1943 Amoxicillin/ 500 MG Q12 09/09 2199 AC 09/09 Clavulanate Potassium PO 2229 Amoxicillin/ 875 MG Q12 09/09 1114 DC Clavulanate Potassium PO Ampicillin Sodium/ 3,000 MG Q6 09/07 0600 DC 09/09 Sulbactam Sodium IV 0550 Sodium Chloride 100 ML Apixaban 5 MG BID 09/09 2200 AC 09/09 PO 2229 Calcium Carbonate 500 MG BID 09/07 1018 AC 09/09 PO 2229 Cholecalciferol 1,000 IU DAILY 09/07 1019 AC 09/09 PO 0921 Dextrose/Sodium 1,000 ML Q13H 09/08 1845 DC 09/09 Chloride IV 09/09 2044 1608 Digoxin 0.0625 MG 1700 09/07 1700 AC 09/09 PO 1608 Fluticasone 2 PUF BID 09/07 1022 AC 09/09 Propionate INH 2230 Heparin Sodium 25,000 UNIT Q24H 09/08 1845 AC 09/09 (Porcine) IV 1910 Sodium Chloride 500 ML Levothyroxine Sodium 0.1 MG DAILY AC 09/07 1038 AC 09/10 PO 0625 Lorazepam 0.5 MG Q8H PRN 09/07 1030 AC 09/09 PO 09/14 1029 1613 Metoprolol Tartrate 25 MG BID 09/08 2200 AC 09/09 PO 2230 Montelukast Sodium 10 MG QPM 09/07 2200 AC 09/09 PO 2230 Last 24 Hrs of Lab/Hardy Results Last 24 Hrs of Labs/Mics: Laboratory Tests 09/10/16 0605: Sodium Pending, Potassium Pending, Chloride Pending, Carbon Dioxide Pending, Anion Gap Pending, BUN Pending, Creatinine Pending, BUN/Creatinine Ratio Pending , Magnesium Pending, CBC w Diff Pending, WBC Pending, RBC Pending, Hgb Pending, Hct Pending, MCV Pending, MCH Pending, RDW Pending, Plt Count Pending, MPV Pending, PUBS MCHC Pending 09/09/16 2300: APTT Cancelled 09/09/16 1105: APTT 81 H Assessment/Plan Assessment: This is a 76 yo lady from [facility] of Afib on eliquis, ischemic CMP with EF 25% s/p AICD, CAD s/p stent, severe systolic CHF, aortic stenosis, CKD stage 3B, 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 Abdominal US done yesterday: Recommend additional workup to rule out cholecystitis. HIDA done yesterday Continue on telemetry for close monitoring Patient scheduled to go for CT on 09/09/2016 to rule out worsening stroke, showed no acute territorial infarction or intracranial hemorrhage.Chronic right cerebellar infarct. Head of bed elevated. Patient continued to get medications via G tube. Also obtained a consult from the GI service. Rule out worsening Cholecystitis. #Atypical chest pain: Rule out ACS Initial troponin 0.04, 0.05, 0.03. Will obtain troponins to rule out ACS # ?Intra-abdominal infectious process. CBC 9.2. Patient's currently afebrile. Continue Unasyn for possible aspiration, continue Unasyn 09/09/2016. Urine culture, sputum culture, and blood cultures: Cultures reveal no evidence of growth after day 2 incubation. Continue patient on Augmentin 500 mg twice a day (adjested for renal clearance) --> will require 10 days of Augmentin. #History of CHF Will hold off Lasix and metoprolol drop in blood pressure Patient was running tachycardic and metoprolol dose was adjusted to 25 mg twice a day. 25 mg 3 times a day for adequate rate control. Continue Digoxin and BB started yeaterday, other cardiac medications. AICD interrogation: reveals no recorded episodes of VT/VF #Atrial Fibrillation Continue Eliquis this evening at 22.00, Discontinue Heparin IV once Eliquis started 09/09/2016, continue Eliquis #Diet Tube feeds started this a.m. running at 20 mL per hour. Likely will need a swallow eval on 09/10/2016. Can increase rate today. Rate has been increased today for the next 12 hours and will reschedule for him. Discontinued IV fluids. #DVT Prophylaxis Continue Eliquis #Code DNR DNI . Problem List: 1. Altered mental status 2. Unresponsiveness 3. Sepsis 4. Afib 5. Cholelithiasis Pain Ratin Pain Location: Pain Reported Pain Goal: Remain pain free Pain Plan: Tylenol PRN Tomorrow's Labs & Rationales: BEP: Monitor creatinine function.
[2016-09-10 07:39] LABS: ABSOLUTE BASOPHIL COUNT 0 /CUMM (0.0-0.2); ABSOLUTE EOSINOPHIL COUNT 0 /CUMM (0.0-0.7); ABSOLUTE LYMPH COUNT 1.2 /CUMM (1.2-3.4); ABSOLUTE MONOCYTE COUNT 0.8 /CUMM (0.10-0.60); BASOPHIL % 0.4 % (0.0-2.0); EOSINOPHIL % 0.4 % (0-5); MEAN CORPUSCULAR HGB 31.4 PG (27.0-31.0); MEAN CORPUSCULAR HGB CONC 32.2 G/DL (33.0-37.0); MEAN CORPUSCULAR VOLUME 97.4 FL (81.0-99.0); MEAN PLATELET VOLUME 9.9 FL (7.4-10.4); RBC DISTRIBUTION WIDTH 13.9 % (11.5-14.5); RED BLOOD CELL CT 4.31 /CUMM (4.20-5.40); WHITE BLOOD CELL COUNT 9.1 /CUMM (4.8-10.8)
[2016-09-10 08:00] VITALS: BP 110/60
[2016-09-10 08:05] LABS: PLATELET COUNT 223 /CUMM (130-400)
--- NOTE | 2016-09-10 10:01 | PN- Cardiology ---
Subjective Subjective: Patient unable to give us a history. Telemetry revealed atrial fibrillation with a ventricular rate of 104. Objective Vital Signs and I&Os Vital Signs Date Time Temp Pulse Resp B/P Pulse O2 O2 Flow FiO2 Ox Delivery Rate 09/10 0824 134/68 09/10 0800 111 24 110/60 97 Nasal 2.5L Cannula 09/10 0111 98.6 110 20 120/67 97 09/10 0000 95 Nasal 2.0L Cannula 09/09 2230 110 124/70 09/09 1945 96 Nasal 2.0L Cannula 09/09 1608 111 130/80 09/09 1541 98.0 111 18 130/80 98 Nasal 2.5L Cannula Intake & Output 09/10 1600 09/10 0800 09/10 0000 09/09 1600 09/09 0809/09 0000 Intake Total 280 868.4 772.8 480 760 Output Total 120 Balance 280 868.4 772.8 480 640 Intake, IV 328.4 586.8 480 760 Intake, Oral 0 0 Intake, Other 180 120 Intake, Tube 160 240 66 Feeding Intake, Tube 120 120 Irrigant Number 1 2 1 2 Bowel Movements Output, 120 Gastric Drainage Patient 154 lb Weight Physical Exam: Patient unable to give a history and moans. Head normocephalic atraumatic Eyes sclera anicteric conjunctiva showed mild pallor extraocular muscles were normal Neck no jugular venous distention no thyroid masses no palpable nodes Chest lungs clear bilaterally with scattered wheezes Heart irregular rhythm with a ventricle rate of around 100 Abdomen soft no organomegaly bowel sounds normal Extremities no clubbing cyanosis or pedal edema And neurological left hemiparesis noted Current Medications: Current Medications Sig/Jake Start time Last Medication Dose Route Stop Time Status Admin Acetaminophen 650 MG Q6P PRN 09/07 0715 AC 09/08 PO 0241 Albuterol Sulfate 3 ML BID 09/07 2199 AC 09/09 INH 1943 Amoxicillin/ 500 MG Q12 09/09 2199 AC 09/10 Clavulanate Potassium PO 0824 Amoxicillin/ 875 MG Q12 09/09 1114 DC Clavulanate Potassium PO Ampicillin Sodium/ 3,000 MG Q6 09/07 0600 DC 09/09 Sulbactam Sodium IV 0550 Sodium Chloride 100 ML Apixaban 5 MG BID 09/09 2199 AC 09/10 PO 0824 Calcium Carbonate 500 MG BID 09/07 1018 AC 09/10 PO 0824 Cholecalciferol 1,000 IU DAILY 09/07 1019 AC 09/10 PO 0824 Dextrose/Sodium 1,000 ML Q13H 09/08 1845 DC 09/09 Chloride IV 09/09 2044 1608 Digoxin 0.0625 MG 1700 09/07 1700 AC 09/09 PO 1608 Fluticasone 2 PUF BID 09/07 1022 AC 09/09 Propionate INH 2230 Heparin Sodium 25,000 UNIT Q24H 09/08 1845 AC 09/09 (Porcine) IV 1910 Sodium Chloride 500 ML Levothyroxine Sodium 0.1 MG DAILY AC 09/07 1038 AC 09/10 PO 0625 Lorazepam 0.5 MG Q8H PRN 09/07 1030 AC 09/10 PO 09/14 1029 0825 Metoprolol Tartrate 25 MG BID 09/08 2200 AC 09/10 PO 0824 Montelukast Sodium 10 MG QPM 09/07 2200 AC 09/09 PO 2230 Assessment/Plan Assessment/Plan In summary this 76-year-old female has the following problems 1. Altered mental status 2. Possible pneumonia, question aspiration 3. CKD 4. Atrial fibrillation on Eliquis 5. Acute CVA 03/2016 (while off AC for GI procedure) tx at [place], s/p PEG tube for dysphagia 6. History of systolic congestive heart failure with myocardial scar/ischemic cardiomyopathy 7. CAD with PCI to the LAD/LCx 2007 8. AICD in situ (Medtronic) 9. History of choledocholithiasis/cholangitis 10. History of statin intolerance She has been restarted on a Elliquis. I would increase the metoprolol tartrate 25 mg every 8 hours for better rate control. He is being treated for possible pneumonia. Echocardiogram was just done and is pending. Records from [place] are also pending. Overall prognosis appears poor. Continue telemetry? Yes
--- NOTE | 2016-09-10 13:13 | PN- Pulmonary ---
Subjective HPI/Critical Care Issues: Patient seen and examined this morning resting comfortably in bed. However continues to improve in mental alertness and responsiveness. Patient denies any pain at the moment. She continues to have supplemental oxygen although takes it off when adjusted. Patient denies any fever, chills, nausea, vomiting. She currently has tube feeds running at 20 mg per hour. Review of Systems Constitutional: Reports: see HPI. Denies: chills, fever, weakness. Objective Current Medications: Current Medications Sig/Jake Start time Last Medication Dose Route Stop Time Status Admin Acetaminophen 650 MG Q6P PRN 09/07 0815 AC 09/08 PO 0241 Albuterol Sulfate 3 ML BID 09/07 2200 AC 09/10 INH 1100 Amoxicillin/ 500 MG Q12 09/09 220 AC 09/10 Clavulanate Potassium PO 0824 Apixaban 5 MG BID 09/09 2200 AC 09/10 PO 0824 Calcium Carbonate 500 MG BID 09/07 1018 AC 09/10 PO 0824 Cholecalciferol 1,000 IU DAILY 09/07 1019 AC 09/10 PO 0824 Dextrose/Sodium 1,000 ML Q13H 09/08 1845 DC 09/09 Chloride IV 09/09 2044 1608 Digoxin 0.0625 MG 1700 09/07 1700 AC 09/09 PO 1608 Fluticasone 2 PUF BID 09/07 1022 AC 09/09 Propionate INH 2230 Heparin Sodium 25,000 UNIT Q24H 09/08 1845 AC 09/09 (Porcine) IV 1910 Sodium Chloride 500 ML Levothyroxine Sodium 0.1 MG DAILY AC 09/07 1038 AC 09/10 PO 0625 Lorazepam 0.5 MG Q8H PRN 09/07 1030 AC 09/10 PO 09/14 1029 0825 Metoprolol Tartrate 25 MG Q8 09/10 1400 AC 09/10 PO 1258 Metoprolol Tartrate 25 MG BID 09/08 2200 DC 09/10 PO 0824 Montelukast Sodium 10 MG QPM 09/07 2200 AC 09/09 PO 2230 Vital Signs & I&O Last 24 Hrs of Vitals and I&O: Vital Signs Date Time Temp Pulse Resp B/P Pulse O2 O2 Flow FiO2 Ox Delivery Rate 09/10 1258 104 130/70 09/10 1104 98 Trach Mask 2.5L 09/10 0824 134/68 09/10 0800 95 Nasal 2.0L Cannula 09/10 0800 111 24 110/60 97 Nasal 2.5L Cannula 09/10 0111 98.6 110 20 120/67 97 09/10 0000 95 Nasal 2.0L Cannula 09/09 2230 110 124/70 09/09 1945 96 Nasal 2.0L Cannula 09/09 1608 111 130/80 09/09 1541 98.0 111 18 130/80 98 Nasal 2.5L Cannula Intake & Output 09/10 1600 09/10 0800 09/10 0000 Intake Total 280 868.4 Output Total Balance 280 868.4 Intake, IV 328.4 Intake, Other 180 Intake, Tube 160 240 Feeding Intake, Tube 120 120 Irrigant Number 1 Bowel Movements Laboratory Tests 09/10 09/09 09/09 0605 2300 1105 Chemistry Sodium (137 - 145 mmol/L) 140 Potassium (3.5 - 5.1 mmol/L) 4.4 Chloride (98 - 107 mmol/L) 105 Carbon Dioxide (22 - 30 mmol/L) 16 L Anion Gap (5 - 16) 19 H BUN (7 - 17 mg/dL) 31 H Creatinine (0.5 - 1.0 mg/dL) 1.6 H Estimated GFR (>60 ml/min) 31 L BUN/Creatinine Ratio (7 - 25 %) 19.4 Magnesium (1.6 - 2.3 mg/dL) 1.9 Coagulation APTT (25 - 37 SEC) Cancelled 81 H Hematology CBC w Diff NO MAN DIFF REQ WBC (4.8 - 10.8 /CUMM) 9.1 RBC (4.20 - 5.40 /CUMM) 4.31 Hgb (12.0 - 16.0 G/DL) 13.5 Hct (37 - 47 %) 42.0 MCV (81.0 - 99.0 FL) 97.4 MCH (27.0 - 31.0 PG) 31.4 H RDW (11.5 - 14.5 %) 13.9 Plt Count (130 - 400 /CUMM) 223 MPV (7.4 - 10.4 FL) 9.9 Gran % (42.2 - 75.2 %) 77.0 H Lymphocytes % (20.5 - 51.1 %) 13.0 L Monocytes % (1.7 - 9.3 %) 9.2 Eosinophils % (0 - 5 %) 0.4 Basophils % (0.0 - 2.0 %) 0.4 Absolute Granulocytes (1.4 - 6.5 /CUMM) 7.0 H Absolute Lymphocytes (1.2 - 3.4 /CUMM) 1.2 Absolute Monocytes (0.10 - 0.60 /CUMM) 0.8 H Absolute Eosinophils (0.0 - 0.7 /CUMM) 0 Absolute Basophils (0.0 - 0.2 /CUMM) 0 PUBS MCHC (33.0 - 37.0 G/DL) 32.2 L 09/09 09/09 0600 0235 Chemistry Sodium (137 - 145 mmol/L) 141 Potassium (3.5 - 5.1 mmol/L) 4.7 Chloride (98 - 107 mmol/L) 105 Carbon Dioxide (22 - 30 mmol/L) 16 L Anion Gap (5 - 16) 20 H BUN (7 - 17 mg/dL) 28 H Creatinine (0.5 - 1.0 mg/dL) 1.4 H Estimated GFR (>60 ml/min) 36 L BUN/Creatinine Ratio (7 - 25 %) 20.0 Phosphorus (2.5 - 4.5 mg/dL) 5.4 H Magnesium (1.6 - 2.3 mg/dL) 2.0 Coagulation APTT (25 - 37 SEC) 58 H Hematology CBC w Diff NO MAN DIFF REQ WBC (4.8 - 10.8 /CUMM) 9.2 RBC (4.20 - 5.40 /CUMM) 4.17 L Hgb (12.0 - 16.0 G/DL) 13.3 Hct (37 - 47 %) 40.2 MCV (81.0 - 99.0 FL) 96.3 MCH (27.0 - 31.0 PG) 31.9 H RDW (11.5 - 14.5 %) 13.6 Plt Count (130 - 400 /CUMM) 242 MPV (7.4 - 10.4 FL) 10.0 Gran % (42.2 - 75.2 %) 67.3 Lymphocytes % (20.5 - 51.1 %) 19.4 L Monocytes % (1.7 - 9.3 %) 11.4 H Eosinophils % (0 - 5 %) 1.1 Basophils % (0.0 - 2.0 %) 0.8 Absolute Granulocytes (1.4 - 6.5 /CUMM) 6.2 Absolute Lymphocytes (1.2 - 3.4 /CUMM) 1.8 Absolute Monocytes (0.10 - 0.60 /CUMM) 1.1 H Absolute Eosinophils (0.0 - 0.7 /CUMM) 0.1 Absolute Basophils (0.0 - 0.2 /CUMM) 0.1 PUBS MCHC (33.0 - 37.0 G/DL) 33.1 Microbiology Date/Time Procedure - Status Source Growth 09/07 1604 Urine Culture - COMP URINE ROUT Impression/Plan Impression/Plan Impression/Plan: Physical Exam General Appearance Alert, Mild Distress, orineted to person and place Skin No Significant Lesion HEENT Atraumatic, Dry mucous membranes Neck Supple, +2 Carotid Pulse wo Bruit Lymphatic Cervical nl Cardiovascular Regular Rate, Normal S1, Normal S2 Lungs Clear to Auscultation Abdomen Normal Bowel Sounds, Soft, No Tenderness Neurological left-sided weakness noted on upper and lower extremities. Extremities No Clubbing, No Cyanosis Vascular Pulses Symmetrical This is a 75-year-old lady with severe systolic dysfunction of the heart, severe cardiomegaly, paroxysmal atrial fibrillation, recurrent heart failure in the past, aortic stenosis, hypothyroidism, hypertension, hyperlipidemia, Sig gall stone pancreatitis with choledocholithiasis with enterococci bacteremia in the past with s/p ercp, pt on eloquis for afib with Coronary artery disease, status post JUANJOSE, Unfortunately had developed a larged rt mca stroke few months ago admitted to [facility] with left sided paralysis with total care and on peg tube with on off po feeding, Total care in snf, Now has * Waxing and waning of consiousness with resolving Altered mental status appears multifactorial (ongoing small vessel disease, vs new stroke, sepsis appears unlikely ). 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 * Atrial fibrillation on Eliquis * Essential hypertension * Moderate aortic stenosis by echocardiogram * H/o Celiac disease * Chronic systolic heart failure stable * CKD with mild worsening renal failure * Hypothyroid on supp * Chronic venous insuff * Sig valvular heart disease * Asthma stable REC Discussed with daughter yesterday and she wishes no surg or invasive procedures for GB if worse she will consider palliation Cont antibiotics, switch to augmentin bid total 10 days Cont tube feeds Use g tube for all the meds Cont all the cardiac meds Can dc ivf once tube feeding is on and pt can get free water boluses Keep hob up Stable for dc in am PT is dnr and dni with no sig aggresive care Prog poor Discussed with daughter today and she wishes conservative care and upon return to [facility] will consider Do not hospitalize order
[2016-09-10] MEDS ORDERED: METOPROLOL TART25 M1 PO (13:43)
--- NOTE | 2016-09-10 13:43 | NUR ---
SPEECH THERAPY: CHART REVIEWED, D/W RN AND ATTEMPTED SWALLOW EVAL AGAIN. PT CONTINUES TO BE NOT SUFFICIENTLY ALERT/AWAKE TO PARTICIPATE IN PO TRIALS. WILL CONTINUE TO MONITOR FOR ABILITY TO PARTICIPATE. PT CURRENTLY HAS A NUTRITION SOURCE VIA G-TUBE WHICH HAS BEEN INITIATED.
--- NOTE | 2016-09-10 15:06 | ECHOCARDIOGRAM REPORT ---
CHACHO ALEXANDER Age: 76 : 1940 Gender: F Exam Date: 09/10/2016 09:02 Exam Location: [facility] Ht (in): 64 Wt (lb): 146 BSA: 1.74 BP: 134 / 68 Ordering Physician: GABE LOU MD Referring Physician: GABE LOU MD Technologist: Severiano Mendoza [facility] Room Number: 180-01 Indications: EVALUATION OF LV FUNCTION Rhythm: Atrial fibrillation Technical Quality: fair FINDINGS Left Ventricle Left ventricular cavity size at the upper limits of normal. Moderately abnormal left ventricular ejection fraction estimated at 30-35%. [place] akinetic. Hypokinetic anterior wall. No obvious left ventricular thrombus. Right Ventricle Normal right ventricular size and function. Catheter/pacemaker wire in the right ventricular cavity. Right Atrium Mild to moderate right atrial dilatation. Left Atrium Moderate to severe left atrial dilatation. Mitral Valve Mild mitral annular calcification. Moderate mitral regurgitation. Aortic Valve Diffuse thickening of the aortic valve cusps with reduced excursion. Moderate aortic stenosis. Tricuspid Valve Tricuspid valve is normal in structure and function. Moderate tricuspid regurgitation. Right ventricular systolic pressure estimated to be elevated at 45 mmHg. Pulmonic Valve Pulmonic valve not well visualized, grossly normal. Pericardium No pericardial effusion. Great Vessels Normal size aortic root. CONCLUSIONS Moderate to severe reduction in left ventricular systolic function with segmental abnormalities suggestive of Ischemiac cardiomyopathy. Moderate Mitral and tricuspid Regurgitation. Moderate aortic stenosis. Moderate Pulmonary hypertension. Aaron Blanco M.D. (Electronically Signed) Final Date: 10 September 2016 15:05 MEASUREMENTS (Male / Female) Normal Values 2D ECHO LV Diastolic Diameter PLAX 5.4 cm 4.2 - 5.9 / 3.9 - 5.3 cm LV Systolic Diameter PLAX 4.9 cm 2.1 - 4.0 cm LV Fractional Shortening PLAX 9.3 % 25 - 46 % LV Ejection Fraction 2D Teich 20.2 % IVS Diastolic Thickness 1.0 cm LVPW Diastolic Thickness 1.2 cm LV Relative Wall Thickness 0.4 LVOT Diameter 1.9 cm Aortic Root Diameter 2.7 cm LA Systolic Diameter LX 5.1 cm 3.0 - 4.0 / 2.7 - 3.8 cm LA Volume 123.0 cm 18 - 58 / 22 - 52 cm Ascending Aorta Diameter 2.9 cm DOPPLER AV Peak Velocity 244.0 cm/s AV Peak Gradient 23.8 mmHg AV Mean Velocity 173.0 cm/s AV Mean Gradient 14.0 mmHg AV Velocity Time Integral 46.2 cm LVOT Peak Velocity 80.5 cm/s LVOT Peak Gradient 2.6 mmHg LVOT Mean Velocity 53.8 cm/s LVOT Mean Gradient 1.0 mmHg LVOT Velocity Time Integral 13.0 cm LVOT Stroke Volume 36.9 cm AV Area Cont Eq vti 0.8 cm AV Area Cont Eq pk 0.9 cm Mitral E Point Velocity 108.2 cm/s MV Deceleration Time 89.3 ms TR Peak Velocity 287.0 cm/s TR Peak Gradient 32.9 mmHg Right Atrial Pressure 10.0 mmHg Pulmonary Artery Systolic Pressu 42.9 mmHg Right Ventricular Systolic Press 42.9 mmHg PV Peak Velocity 74.0 cm/s PV Peak Gradient 2.2 mmHg PV Mean Velocity 47.2 cm/s PV Mean Gradient 1.0 mmHg PV Velocity Time Integral 11.6 cm
[2016-09-10 15:30] VITALS: BP 90/60
[2016-09-10] MEDS ORDERED: AUGMENTIN 500-1 EACH PO (20:28)
[2016-09-11 00:53] VITALS: BP 102/56
--- NOTE | 2016-09-11 06:39 | PN- Housestaff ---
Subjective Follow-up For: AMS Subjective: Ms. Forbes was seen and examined this morning. Resting comfortably in bed. She reports no acute overnight events. Activities were continued to fall and this morning. Patient is alert and oriented. States that she is not active pain however does point to her throat questionable discomfort owing to dehydration and a dry throat. Patient denies any chills, nausea, vomiting. She does report of a subjective fever. Nurse reports no acute events overnight. Review of Systems Constitutional: Reports: see HPI. Denies: chills, diaphoresis, fever, malaise. Objective Last 24 Hrs of Vital Signs/I&O Vital Signs Date Time Temp Pulse Resp B/P Pulse O2 O2 Flow FiO2 Ox Delivery Rate 09/11 0611 95 134/82 09/11 0053 97.4 77 20 102/56 94 Nasal Cannula 09/11 0000 Nasal 1.0L Cannula 09/10 2121 84 90/64 09/10 1947 95 Nasal 2.0L Cannula 09/10 1703 83 112/70 09/10 1600 95 Nasal 1.0L Cannula 09/10 1530 97.6 76 20 90/60 94 Nasal 1.0L Cannula 09/10 1258 104 130/70 09/10 1104 98 Trach Mask 2.5L 09/10 0824 134/68 09/10 0800 95 Nasal 2.0L Cannula 09/10 0800 111 24 110/60 97 Nasal 2.5L Cannula Intake & Output 09/11 0800 09/11 0000 09/10 1600 Intake Total 478 555 4130 Output Total Balance 213 365 6357 Intake, IV 20 480 Intake, Oral 0 Intake, Tube 350 590 270 Feeding Intake, Tube 250 125 256 Irrigant Number 2 2 2 Bowel Movements Output, Urine Physical Exam General Appearance: Alert, Oriented X3, Cooperative, No Acute Distress HEENT: Mucous Membranes Dry Lymphatic: Cervical nl Cardiovascular: Normal S1, Normal S2, Irregular Rate and Rhythm Lungs: Clear to Auscultation Abdomen: Normal Bowel Sounds, Soft, No Tenderness Neurological: Speech mumbled/Erratic Extremities: No Edema Current Medications: Current Medications Sig/Jake Start time Last Medication Dose Route Stop Time Status Admin Acetaminophen 650 MG Q6P PRN 09/07 0815 AC 09/08 PO 0241 Albuterol Sulfate 3 ML Q4-PRN PRN 09/10 1999 AC INH Albuterol Sulfate 3 ML BID 09/07 2200 DC 09/10 INH 1945 Amoxicillin/ 500 MG Q12 09/09 2200 AC 09/10 Clavulanate Potassium PO 211 Apixaban 5 MG BID 09/09 2200 AC 09/10 PO 211 Calcium Carbonate 500 MG BID 09/07 1018 AC 09/10 PO 211 Cholecalciferol 1,000 IU DAILY 09/07 1019 AC 09/10 PO 0824 Digoxin 0.0625 MG 1700 09/07 1700 AC 09/10 PO 1703 Fluticasone 2 PUF BID 09/07 1022 AC 09/10 Propionate INH 211 Heparin Sodium 25,000 UNIT Q24H 09/08 1845 DC 09/09 (Porcine) IV 1910 Sodium Chloride 500 ML Levothyroxine Sodium 0.1 MG DAILY AC 09/07 1038 AC 09/11 PO 0611 Lorazepam 0.5 MG Q8H PRN 09/07 1030 AC 09/10 PO 09/14 1029 0825 Metoprolol Tartrate 25 MG Q8 09/10 1400 AC 09/11 PO 0611 Metoprolol Tartrate 25 MG BID 09/08 2200 DC 09/10 PO 0824 Montelukast Sodium 10 MG QPM 09/07 2200 AC 09/10 PO 2114 Patient Medication 1 ED ONE ONE 09/[address] Teaching ED 09/10 1401 Last 24 Hrs of Lab/Hardy Results Last 24 Hrs of Labs/Mics: Laboratory Tests 09/11/16 0605: Anion Gap 15, Estimated GFR 36 L, BUN/Creatinine Ratio 26.4 H Assessment/Plan Assessment: This is a 76 yo lady from [place] of Afib on eliquis, ischemic CMP with EF 25% s/p AICD, CAD s/p stent, severe systolic CHF, aortic stenosis, CKD stage 3B, 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 Abdominal US done yesterday: Recommend additional workup to rule out cholecystitis. HIDA done yesterday Continue on telemetry for close monitoring Patient scheduled to go for CT on 09/09/2016 to rule out worsening stroke, showed no acute territorial infarction or intracranial hemorrhage.Chronic right cerebellar infarct. Head of bed elevated. Patient continued to get medications via G tube. Also obtained a consult from the GI service. Rule out worsening Cholecystitis. #Atypical chest pain. Coronary ischemia workup did not reveal any acute findings. Initial troponin 0.04, 0.05, 0.03. Will obtain troponins to rule out ACS # ?Intra-abdominal infectious process. CBC 9.2. Patient's currently afebrile. Continue Unasyn for possible aspiration, continue Unasyn 09/09/2016. Urine culture, sputum culture, and blood cultures: Cultures reveal no evidence of growth after day 2 incubation. Continue patient on Augmentin 500 mg twice a day (adjusted for renal clearance) --> will require 10 days of Augmentin. #History of CHF Will hold off Lasix and metoprolol drop in blood pressure Patient was running tachycardic and metoprolol dose was adjusted to 25 mg twice a day. 25 mg 3 times a day for adequate rate control. Cardiac Medication dose was confirmed with attending physician Garry Abdalla MD. Continue Digoxin and BB started yeaterday, other cardiac medications. AICD interrogation: reveals no recorded episodes of VT/VF. #Atrial Fibrillation Continue Eliquis this evening at 22.00, Discontinue Heparin IV once Eliquis started 09/09/2016, continue Eliquis #Diet Tube feeds started this a.m. running at 20 mL per hour. Likely will need a swallow eval on 09/10/2016. Can increase rate today. Rate has been increased today for the next 12 hours and will reschedule for him. Discontinued IV fluids . Patient had a swallow eval done today which revealed that she is unable to initiate swallow reflex. She'll be currently left nothing by mouth for now. The recommend a modified barium swallow as the patient has regained improved mentation. #DVT Prophylaxis Continue Eliquis #Code DNR DNI . Problem List: 1. Altered mental status 2. Unresponsiveness 3. Sepsis 4. Hypertensive urgency 5. Afib 6. Cholelithiasis Pain Ratin Pain Location: NA Pain Goal: Remain pain free Pain Plan: Tylenol Tomorrow's Labs & Rationales: NA
[2016-09-11 08:20] VITALS: BP 142/85
--- NOTE | 2016-09-11 10:55 | PN- Pulmonary ---
Subjective HPI/Critical Care Issues: Andrei was seen and examined this morning. Resting comfortably in bed. She reports no acute overnight events. Activities were continued to fall and this morning. Patient is alert and oriented. States that she is not active pain however does point to her throat questionable discomfort owing to dehydration and a dry throat. Patient denies any chills, nausea, vomiting. She does report of a subjective fever. Nurse reports no acute events overnight. Review of Systems Constitutional: Reports: see HPI. Denies: chills, diaphoresis, fever, malaise. Objective Current Medications: Current Medications Sig/Jake Start time Last Medication Dose Route Stop Time Status Admin Acetaminophen 650 MG Q6P PRN 09/07 0815 AC 09/08 PO 0241 Albuterol Sulfate 3 ML Q4-PRN PRN 09/10 2000 AC INH Albuterol Sulfate 3 ML BID 09/07 2200 DC 09/10 INH 1945 Amoxicillin/ 500 MG Q12 09/09 2200 AC 09/11 Clavulanate Potassium PO 0900 Apixaban 5 MG BID 09/09 2200 AC 09/11 PO 0900 Calcium Carbonate 500 MG BID 09/07 1018 AC 09/11 PO 0900 Cholecalciferol 1,000 IU DAILY 09/07 1019 AC 09/11 PO 0900 Digoxin 0.0625 MG 1700 09/07 1700 AC 09/10 PO 1703 Fluticasone 2 PUF BID 09/07 1022 AC 09/11 Propionate INH 0901 Heparin Sodium 25,000 UNIT Q24H 09/08 1845 DC 09/09 (Porcine) IV 1910 Sodium Chloride 500 ML Levothyroxine Sodium 0.1 MG DAILY AC 09/07 1038 AC 09/11 PO 0611 Lorazepam 0.5 MG Q8H PRN 09/07 1030 AC 09/10 PO 09/14 1029 0825 Metoprolol Tartrate 25 MG Q8 09/10 1400 AC 09/11 PO 0611 Montelukast Sodium 10 MG QPM 09/07 2200 AC 09/10 PO 2114 Patient Medication 1 ED ONE ONE 09/10 1400 DC Teaching ED 09/10 1401 Vital Signs & I&O Last 24 Hrs of Vitals and I&O: Vital Signs Date Time Temp Pulse Resp B/P Pulse O2 O2 Flow FiO2 Ox Delivery Rate 09/11 0820 97.5 96 18 142/85 95 Nasal 1.0L Cannula 09/11 0815 95 Nasal 1.0L Cannula 09/11 0800 95 Nasal 1.0L Cannula 09/11 0611 95 134/82 09/11 0053 97.4 77 20 102/56 94 Nasal Cannula 09/11 0000 Nasal 1.0L Cannula 09/10 2121 84 90/64 09/10 1947 95 Nasal 2.0L Cannula 09/10 1703 83 112/70 09/10 1600 95 Nasal 1.0L Cannula 09/10 1530 97.6 76 20 90/60 94 Nasal 1.0L Cannula 09/10 1258 104 130/70 09/10 1104 98 Trach Mask 2.5L Intake & Output 09/11 1600 09/11 0800 09/11 0000 Intake Total 600 735 Output Total Balance 600 735 Intake, IV 20 Intake, Oral 0 Intake, Tube 350 590 Feeding Intake, Tube 250 125 Irrigant Number 2 2 Bowel Movements Output, Urine Laboratory Tests 09/11 09/10 09/09 0605 0605 2300 Chemistry Sodium (137 - 145 mmol/L) 139 140 Potassium (3.5 - 5.1 mmol/L) 3.9 4.4 Chloride (98 - 107 mmol/L) 104 105 Carbon Dioxide (22 - 30 mmol/L) 20 L 16 L Anion Gap (5 - 16) 15 19 H BUN (7 - 17 mg/dL) 37 H 31 H Creatinine (0.5 - 1.0 mg/dL) 1.4 H 1.6 H Estimated GFR (>60 ml/min) 36 L 31 L BUN/Creatinine Ratio (7 - 25 %) 26.4 H 19.4 Magnesium (1.6 - 2.3 mg/dL) 1.9 Coagulation APTT Cancelled Hematology CBC w Diff NO MAN DIFF REQ WBC (4.8 - 10.8 /CUMM) 9.1 RBC (4.20 - 5.40 /CUMM) 4.31 Hgb (12.0 - 16.0 G/DL) 13.5 Hct (37 - 47 %) 42.0 MCV (81.0 - 99.0 FL) 97.4 MCH (27.0 - 31.0 PG) 31.4 H RDW (11.5 - 14.5 %) 13.9 Plt Count (130 - 400 /CUMM) 223 MPV (7.4 - 10.4 FL) 9.9 Gran % (42.2 - 75.2 %) 77.0 H Lymphocytes % (20.5 - 51.1 %) 13.0 L Monocytes % (1.7 - 9.3 %) 9.2 Eosinophils % (0 - 5 %) 0.4 Basophils % (0.0 - 2.0 %) 0.4 Absolute Granulocytes (1.4 - 6.5 /CUMM) 7.0 H Absolute Lymphocytes (1.2 - 3.4 /CUMM) 1.2 Absolute Monocytes (0.10 - 0.60 /CUMM) 0.8 H Absolute Eosinophils (0.0 - 0.7 /CUMM) 0 Absolute Basophils (0.0 - 0.2 /CUMM) 0 PUBS MCHC (33.0 - 37.0 G/DL) 32.2 L 09/09 1105 Coagulation APTT (25 - 37 SEC) 81 H Impression/Plan Impression/Plan Impression/Plan: Physical Exam General Appearance Alert, Mild Distress, orineted to person and place Skin No Significant Lesion HEENT Atraumatic, Dry mucous membranes Neck Supple, +2 Carotid Pulse wo Bruit Lymphatic Cervical nl Cardiovascular Regular Rate, Normal S1, Normal S2 Lungs Clear to Auscultation Abdomen Normal Bowel Sounds, Soft, No Tenderness Neurological left-sided weakness noted on upper and lower extremities. Extremities No Clubbing, No Cyanosis Vascular Pulses Symmetrical This is a 75-year-old lady with severe systolic dysfunction of the heart, severe cardiomegaly, paroxysmal atrial fibrillation, recurrent heart failure in the past, aortic stenosis, hypothyroidism, hypertension, hyperlipidemia, Sig gall stone pancreatitis with choledocholithiasis with enterococci bacteremia in the past with s/p ercp, pt on eloquis for afib with Coronary artery disease, status post JUANJOSE, Unfortunately had developed a larged rt mca stroke few months ago admitted to [facility] with left sided paralysis with total care and on peg tube with on off po feeding, Total care in snf, Now has * Waxing and waning of consiousness with resolving Altered mental status appears multifactorial (ongoing small vessel disease, vs new stroke, sepsis appears unlikely ). 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 * Atrial fibrillation on Eliquis * Essential hypertension * Moderate aortic stenosis by echocardiogram * H/o Celiac disease * Chronic systolic heart failure stable * CKD with mild worsening renal failure * Hypothyroid on supp * Chronic venous insuff * Sig valvular heart disease * Asthma stable REC Prob ok to go to snf today if ok with the daughter Cont antibiotics, switch to augmentin bid total 10 days Cont tube feeds Use g tube for all the meds Cont all the cardiac medspt can get free water boluses Keep hob up PT is dnr and dni with no sig aggresive care Prog poor Discussed with daughter today and she wishes conservative care and upon return to [facility] will consider Do not hospitalize order
[2016-09-11 12:55] VITALS: BP 128/80
[2016-09-11] MEDS ORDERED: FUROSEMIDE20 M1 PO (13:23)
--- NOTE | 2016-09-11 13:44 | Discharge Summary ---
Visit Information Visit Dates Admission Date: 09/07/16 Discharge Date: 09/11/16 Hospital Course Course Attending Physician: GERALD PADILLA,RHONDA Kwon Primary Care Physician: UMER PADILLA,[facility] Hospital Course: Dewey 76-year-old woman with medical history of atrial fibrillation on anticoagulation ischemic cardiomyopathy with an ejection fraction 5% status post ICD known coronary artery disease with stent severe systolic failure stenosis EKG stage III B right MCA stroke with residual left-sided paralysis dysphagia with PEG tube was admitted with altered mental status thought to be due to TIA or CVA, underlying pneumonia secondary to aspiration. It does not appear that she had any new arrhythmic events after her AICD was interrogated. Troponins and EKGs were negative 3. ACS was not suspected. You have a history of previous biliary sepsis with choledocholithiasis, although her liver function tests were normal a HIDA was performed and was negative. Because of the concern aspiration pneumonia, she received ceftriaxone and azithromycin in the emergency department, once she was admitted to medicine floors was changed to Unasyn. Chest x-ray demonstrated increased hazy right basilar opacity could represent atelectasis or pneumonia. An unenhanced CAT scan of the head did show a right MCA territory infarct which is new compared to the previous image on 10/19/2015, but does not have an acute appearance. An echocardiogram demonstrated moderate to severe reduction in left ventricular systolic function with segmental abnormalities suggestive of ischemic cardiomyopathy, moderate aortic stenosis and moderate pulmonary hypertension. Left ventricular ejection fraction estimated at 3035%. The apex is akinetic and the anterior wall is hypokinetic. There is no obvious left ventricular thrombus. 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 # Atrial fibrillation on Eliquis # Essential hypertension # Moderate aortic stenosis by echocardiogram # H/o Celiac disease # Chronic systolic heart failure stable # CKD with mild worsening renal failure # Hypothyroid on supp # Chronic venous insuff # Asthma stable Allergies: Coded Allergies: STATINS (Intermediate, ACHEY HEAD TO TOE "PAIN ALL OVER BODY" 09/06/16) acetaminophen (Mild, ABDOMINAL PAIN 09/06/16) Disposition Summary Disposition Principal Diagnosis: See above Additional Diagnosis: See above Discharge Disposition: short-term rehabilitation Discharge Instructions General Discharge Information Code Status: Do Not Resucitate/Intubat Patient's Diet: Keep nothing by mouth, tube feeds only until modified barium swallow is performed and/or the patient's mentation improves Patient's Activity: Self-limited Follow-Up Instructions/Appts: Follow-up with Dr. Colton Barnett, Rhonda Abdalla MD, Renan Hall MD Medications at Discharge Discharge Medications: Stop taking the following medications: Furosemide (Furosemide) 20 MG TABLET G TUBE SEE INSTRUCTIONS Metoprolol Tartrate (Metoprolol Tartrate) 25 MG TABLET G TUBE TWICE DAILY Qty = 30 Continue taking these medications: Montelukast Sodium (Montelukast Sodium) 10 MG TABLET 1 Tablet ORAL DAILY Qty = 90 Comments: Last Taken: 10/25/15 Time: 9 AM Fluticasone Propionate (Flovent Hfa) 0.22 MG/Actuation EMERSON 2 PUFF Inhale through mouth TWICE DAILY Qty = 1 Instructions: 220 MCG PER PUFF Comments: NOT GIVEN IN HOSPITAL Chondroitin Sulf/Glucosamine (Glucosamine & Chondroitin) 1 CAP CAP 1 Capsule ORAL DAILY Instructions: Reason to Stop at ADM: no alternative in the hospital Comments: NOT GIVEN IN HOSPITAL Ferrous Sulfate (Ferrous Sulfate) 325 MG (65 MG IRON) TABLET 325 Milligram G TUBE DAILY Comments: NOT GIVEN IN HOSPITAL Apixaban (Eliquis) 5 MG TABLET 1 Tablet ORAL TWICE DAILY Comments: Last Taken: 09/11/16 Time: 9AM Levothyroxine Sodium (Synthroid) 150 MCG TABLET 100 Microgram ORAL DAILY Comments: Last Taken: 09/11/16 Time: 6AM Lorazepam (Ativan) 0.5 MG TABLET 1 Tablet ORAL Q8H as needed for ANXIETY Comments: Last Taken: 09/10/16 Time: 8AM [DUONEB] Inhale Solution via Nebulizer THREE TIMES DAILY Instructions: X48 HRS, D/C ON 09/09/16. Comments: NOT GIVEN IN HOSPITAL Albuterol Sulfate (Ventolin Hfa) 90 MCG HFA.AER.AD 2 Puff Inhale through mouth EVERY 4-6 HOURS NEEDED as needed for SOB Comments: NOT GIVEN IN HOSPITAL Digoxin (Digoxin) 125 MCG TABLET 65 Microgram G TUBE DAILY Instructions: HOLD IF HR LESS THAN 60 Comments: Last Taken: 09/10/16 Time: 5PM Multivitamin (Multi-Delyn) 5 ML LIQUID 5 Milliliters G TUBE DAILY Comments: NOT GIVEN IN HOSPITAL Cholecalciferol (Vitamin D3) 1,000 UNIT TABLET 1 Tablet G TUBE DAILY Comments: Last Taken: 09/11/16 Time: 9AM Gabapentin (Gabapentin) 300 MG CAPSULE 1 Capsule G TUBE Every night Comments: NOT GIVEN IN HOSPITAL Calcium Carbonate (Antacid) 200 MG CALCIUM (500 MG) TAB.CHEW 500 Milligram ORAL TWICE DAILY Comments: Last Taken: 09/11/16 Time: 9AM Acetaminophen (Acetaminophen) 500 MG TABLET 975 Milligram G TUBE Q8H Comments: NOT GIVEN IN HOSPITAL Start taking the following new medications: Furosemide (Furosemide) 20 MG TABLET 1 Tablet ORAL SEE INSTRUCTIONS Qty = 10 No Refills Instructions: Please take this medication twice per week: Wednesday and . Metoprolol Tartrate (Metoprolol Tartrate) 25 MG TABLET 25 Milligram ORAL EVERY 8 HOURS Qty = 90 No Refills Comments: Last Taken: 09/11/16 Time: 1PM Augmentin (Augmentin 500-125 Tablet) 500 MG-125 MG TABLET 500 Milligram ORAL EVERY 12 HOURS Qty = 14 No Refills Comments: Last Taken: 09/11/16 Time: 9AM Copies To: COLTON OWUSU MD; GERALD PADILLA,RHONDA Kwon; LASHAWN PADILLA,RENAN
[2016-09-11 13:50] VITALS: BP 128/80
== END 2016-09-11 15:37 | DRG 177 ==
LOC: ERH 23:31 → ENPENDDIS 09-07 02:14 → ERHI 09-07 02:14 → 1NO 09-07 02:14 → ERHI 09-07 10:41 → 1NO 09-07 16:46
PROVIDERS: Internal Medicine Pulmonary Disease; Pediatrics; Student in an Organized Health Care Education/Training Program; ADMIT Student in an Organized Health Care Education/Training Program
DX: J69.0 Pneumonitis due to inhalation of food and vomit (principal); G93.40 Encephalopathy, unspecified; I69.354 Hemiplegia and hemiparesis following cerebral infarction affecting left non-dominant side; I13.0 Hypertensive heart and chronic kidney disease with heart failure and stage 1 through stage 4 chronic kidney disease, or unspecified chronic kidney disease; I50.22 Chronic systolic (congestive) heart failure; I48.0 Paroxysmal atrial fibrillation; R13.10 Dysphagia, unspecified; I48.2 Chronic atrial fibrillation; Z79.01 Long term (current) use of anticoagulants; I25.10 Atherosclerotic heart disease of native coronary artery without angina pectoris; N18.3 Chronic kidney disease, stage 3 (moderate); E78.5 Hyperlipidemia, unspecified; I25.2 Old myocardial infarction; J45.909 Unspecified asthma, uncomplicated; E03.9 Hypothyroidism, unspecified; I25.5 Ischemic cardiomyopathy; I35.0 Nonrheumatic aortic (valve) stenosis; I87.2 Venous insufficiency (chronic) (peripheral); I69.391 Dysphagia following cerebral infarction; Z93.1 Gastrostomy status; R68.0 Hypothermia, not associated with low environmental temperature
CPT/HCPCS: 1NSP; 36415; 78226; 81001; 82436; 87040; 87070; 87086; 90662; 93005; 93010; 93306; A9537; J0696; J1644; J2060; J3490; J7042; Q9957

== ENCOUNTER 2016-09-13 03:33 | Inpatient (IN) | payer OTHER ==
[~2016-09-13] VITALS: Ht 157.5 cm; Wt 69.5 kg
[~2016-09-13 03:33] MED LIST changes: +ACETAMINOPHEN500 M4 G TUBE; +ANTACID200 MG PO; +ATIVAN0.5 M1 PO; +AUGMENTIN 500-1 EACH PO; +DIGOXIN125 MCG G TUBE; +DUONEB NEB; +FUROSEMIDE20 M1 G TUBE; +FUROSEMIDE20 M1 PO; +GABAPENTIN300 M2 G TUBE; +METOPROLOL TART25 M1 G TUBE; +METOPROLOL TART25 M1 PO; +MULTI-DELYN5 ML G TUBE; +VENTOLIN HFA18 GM INH; +VITAMIN D31000 UNI2 G TUBE
[2016-09-13 04:15] LABS: ABSOLUTE BASOPHIL COUNT 0 /CUMM (0.0-0.2); ABSOLUTE EOSINOPHIL COUNT 0 /CUMM (0.0-0.7); ABSOLUTE GRANULOCYTE CT 7.1 /CUMM (1.4-6.5); ABSOLUTE LYMPH COUNT 0.6 /CUMM (1.2-3.4); ABSOLUTE MONOCYTE COUNT 0.8 /CUMM (0.10-0.60); BASOPHIL % 0.4 % (0.0-2.0); EOSINOPHIL % 0.2 % (0-5); GRANULOCYTE % 83.5 % (42.2-75.2); HEMATOCRIT 41.1 % (37-47); MEAN CORPUSCULAR HGB 30.8 PG (27.0-31.0); MEAN CORPUSCULAR HGB CONC 32.3 G/DL (33.0-37.0); MEAN CORPUSCULAR VOLUME 95.4 FL (81.0-99.0); MEAN PLATELET VOLUME 10.3 FL (7.4-10.4); PLATELET COUNT 178 /CUMM (130-400); RBC DISTRIBUTION WIDTH 13.8 % (11.5-14.5); RED BLOOD CELL CT 4.31 /CUMM (4.20-5.40)
--- NOTE | 2016-09-13 04:33 | ED DYSPNEA/ASTHMA COMPLAINT ---
History of Present Illness General Chief Complaint: Dyspnea (COPD, CHF, Other) Stated Complaint: " SOB" Source: old records, EMS, W10 Exam Limitations: clinical condition Vital Signs & Intake/Output Vital Signs & Intake/Output Vital Signs Date Time Temp Pulse Resp B/P Pulse O2 O2 Flow FiO2 Ox Delivery Rate 09/13 0553 98.5 111 30 131/86 98 Nasal 2.0L Cannula 09/13 0341 97.9 128 30 133/92 94 Nasal 2.0L Cannula Allergies Coded Allergies: STATINS (Intermediate, ACHEY HEAD TO TOE "PAIN ALL OVER BODY" 09/06/16) acetaminophen (Mild, ABDOMINAL PAIN 09/06/16) Reconcile Medications Acetaminophen 500 MG TABLET 975 MG G TUBE Q8H PAIN (Reported) Albuterol Sulfate (Ventolin Hfa) 90 MCG HFA.AER.AD 2 PUF INH Q4-6 PRN PRN SOB (Reported) Apixaban (Eliquis) 5 MG TABLET 1 TAB PO BID AFIB (Reported) Augmentin (Augmentin 500-125 Tablet) 500 MG-125 MG TABLET 500 MG PO Q12 Infection Calcium Carbonate (Antacid) 200 MG CALCIUM (500 MG) TAB.CHEW 500 MG PO BID SUPPLEMENT (Reported) Cholecalciferol (Vitamin D3) 1,000 UNIT TABLET 1 TAB G TUBE DAILY SUPPLEMENT (Reported) Chondroitin Sulf/Glucosamine (Glucosamine & Chondroitin) 1 CAP CAP 1 CAP PO DAILY SUPPLEMENT (Reported) Reason to Stop at ADM: no alternative in the hospital Digoxin 125 MCG TABLET 65 MCG G TUBE DAILY HEART (Reported) HOLD IF HR LESS THAN 60 [DUONEB] SOB (Reported) X48 HRS, D/C ON 09/09/16. Ferrous Sulfate 325 MG (65 MG IRON) TABLET 325 MG G TUBE DAILY SUPPLEMENT ( Reported) Fluticasone Propionate (Flovent Hfa) 0.22 MG/Actuation EMERSON 2 PUFF INH BID COPD /ASTHMA (Reported) 220 MCG PER PUFF Furosemide 20 MG TABLET 1 TAB PO SEE ADMIN CRITERIA FLUID RETENTION Please take this medication twice per week: Wednesday and . Gabapentin 300 MG CAPSULE 1 CAP G TUBE QPM NEUROPATHY (Reported) Levothyroxine Sodium (Synthroid) 150 MCG TABLET 100 MCG PO DAILY HYPOTHYROID (Reported) Lorazepam (Ativan) 0.5 MG TABLET 1 TAB PO Q8H PRN ANXIETY (Reported) Metoprolol Tartrate 25 MG TABLET 25 MG PO Q8 Heart Rate Montelukast Sodium 10 MG TABLET 1 TAB PO DAILY ALLERGIES (Reported) Multivitamin (Multi-Delyn) 5 ML LIQUID 5 ML G TUBE DAILY SUPPLEMENT (Reported ) Core Measure Meds Pre-Hospital Eliquis Triage Note: PER ECF AND EMS PERIODS OF APNEA, PT DISCHARGED FROM TELE 09/11/16. UPON ARRIVAL UNRESPONSIVE OCCAS MOANING SOB, SKIN WARM TO TOUCH. PT WITH BRACELET TO R HAND "NO ACLS" Triage Nurses Notes Reviewed? yes Onset: Just prior to arrival Duration: hour(s):, constant, continues in ED, getting worse Timing: recent history Severity: severe Activities at Onset: rest Prior Episodes/Possible Cause: frequent episodes, illness exposure Associated Symptoms: cough, weakness LMP (ages 10-50): post menopausal : No Patient currently breastfeeds: No HPI: prior to admission patient noted to have episodes of apnea with decreasing mental status similar to previous hospitalization. Per W 10 there's been no fever chills nausea vomiting diarrhea abdominal pain headache dysuria rash bleeding. Case discussed with daughter Sadaf madrid return to detention for treatment. Past History Travel History Traveled to [place] past 21 day No Medical History Any Pertinent Medical History? 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 No Review of Systems Review of Systems Constitutional: Reports: no symptoms. EENTM: Reports: no symptoms. Respiratory: Reports: see HPI, cough, short of breath. Cardiovascular: Reports: no symptoms. GI: Reports: no symptoms. Genitourinary: Reports: no symptoms. Musculoskeletal: Reports: no symptoms. Skin: Reports: no symptoms. Neurological/Psychological: Reports: no symptoms. Hematologic/Endocrine: Reports: no symptoms. Immunologic/Allergic: Reports: no symptoms. All Other Systems: Reviewed and Negative Physical Exam Physical Exam General Appearance: well developed/nourished, lethargic, moderate distress Head: atraumatic, normal appearance Eyes: Bilateral: normal appearance, PERRL, EOMI. Ears, Nose, Throat: normal pharynx, normal ENT inspection Neck: normal inspection, supple, full range of motion, no midline tenderness Respiratory: chest non-tender, decreased breath sounds, rhonchi Cardiovascular: normal peripheral pulses, irregularly irregular, norml femoral pulses equa Peripheral Pulses: 4+ carotid (R), 4+ carotid (L) Gastrointestinal: normal bowel sounds, soft, non-tender, no organomegaly Extremities: normal inspection, normal capillary refill, normal range of motion Neurologic/Psych: depressed affect, disoriented x 3 Skin: intact, normal color, warm/dry Lymphatic: no anterior cervical shy Core Measures ACS in differential dx? Yes Severe Sepsis Present: No Septic Shock Present: No Progress Differential Diagnosis: AMI, CHF, COPD, pneumonia Plan of Care: Orders Procedure Date/time Status Regular Diet 09/14 B Active Patient Data 09/13 0709 Active Code Status 09/13 0623 Active OXYGEN SETUP (GEN) 09/13 06 Active Saline Lock 09/13 06 Active Admit to inpatient 09/13 0614 Active Vital Signs 09/13 0614 Active Activity/Ambulation 09/13 06 Active BLOOD CULTURE 09/13 034 Active URINALYSIS 09/13 034 Complete TSH REFLEX 09/13 034 Complete TROPONIN LEVEL 09/13 344 Complete COMPREHENSIVE METABOLIC PANEL 09/13 344 Complete CBC WITHOUT DIFFERENTIAL 09/13 344 Complete B-TYPE NATRIURETIC PEP (BNP) 09/13 344 Complete EKG 09/13 344 Active Laboratory Tests 09/13/16 0510: Urinalysis LIGHT H, Urine Color STRAW, Urine Clarity CLEAR, Urine pH 6.0, Ur Specific [place] 1.025, Urine Protein >=300 H, Urine Ketones NEG, Urine Nitrite NEG, Urine Bilirubin NEG, Urine Urobilinogen 0.2, Ur Leukocyte Esterase NEG, Ur Microscopic SEDIMENT EXAMINED, Urine RBC 1-3, Urine WBC 3-5 H, Ur Epithelial Cells FEW, Urine Hemoglobin SMALL H, Urine Glucose NEG 09/13/16 0345: Anion Gap 16, Estimated GFR 40 L, BUN/Creatinine Ratio 33.1 H, Glucose 132 H, Calcium 9.0, Total Bilirubin 0.6, AST 246 H, ALT 330 H, Alkaline Phosphatase 103, Troponin I 0.05, [id number] Pept 75697 H, Total Protein 6.2 L, Albumin 3.0 L, Globulin 3.2, Albumin/Globulin Ratio 0.9 L, TSH &T3 &Free T4 Intrp 3.860, CBC w Diff NO MAN DIFF REQ, RBC 4.31, MCV 95.4, MCH 30.8, RDW 13.8, MPV 10.3, Gran % 83.5 H, Lymphocytes % 6.6 L, Monocytes % 9.3, Eosinophils % 0.2, Basophils % 0.4, Absolute Granulocytes 7.1 H, Absolute Lymphocytes 0.6 L, Absolute Monocytes 0.8 H, Absolute Eosinophils 0, Absolute Basophils 0, PUBS MCHC 32.3 L Microbiology 09/13 349 BLOOD: Blood Culture - RECD 09/13 344 BLOOD: Blood Culture - RECD Diagnostic Imaging: Viewed by Me: Radiology Read. Discussed w/RAD: Radiology Read. CXR Impression: Retrocardiac left lower lobe opacity, which may reflect atelectasis or consolidation. Possible trace pleural effusions. Initial ED EKG: AFIB, nonspecific ST T wave chg Prior EKG: unchanged Rhythm Strip: atrial fibrillation Comments: Discussed with daughter Sadaf. Since patient at [place], treat for continued pneumonia and transaminitis. Departure Departure Time of Disposition: 614 Disposition: STILL A PATIENT Condition: Stable Clinical Impression Primary Impression: Pneumonia Qualifiers: Pneumonia type: due to unspecified organism Laterality: bilateral Lung location: lower lobe of lung Qualified Code: J18.9 - Pneumonia, unspecified organism Secondary Impressions: Transaminitis Referrals: JESS OWUSU MD (PCP/Family) Departure Forms: Customer Survey General Discharge Information Admission Note Spoke With: GERALD PADILLA,RHONDA Kwon Documentation of Exam: Documentation of any treatments & extenuating circumstances including Concerns Regarding Discharge (functional status, medication knowledge or non-compliance, living conditions, etc.) that warrant an admission rather than observation: Serial lab exam medication adjustment IV antibiotics supplemental oxygen pulmonary evaluation cardiology evaluation continuing care discharge planning Critical Care Note Critical Care Note Critical Care Time: non-applicable
[2016-09-13 04:35] LABS: WHITE BLOOD CELL COUNT 8.5 /CUMM (4.8-10.8)
--- NOTE | 2016-09-13 05:50 | RADIOLOGY REPORT ---
EXAMINATION: XR PORTABLE CHEST CLINICAL INFORMATION: Shortness of breath, apneic COMPARISON: 09/06/2016 TECHNIQUE: Portable view of the chest was obtained. FINDINGS: Redemonstrated left-sided pacemaker/AICD with lead tips overlying the right atrium and right ventricle. Lung volumes are symmetric. There is ill-defined retrocardiac opacity at the left lung base. Mild right basilar haziness is similar to prior. No evidence of pneumothorax. Trace pleural effusions cannot be excluded. The cardiomediastinal silhouette is stable. No acute osseous findings are seen. IMPRESSION: Retrocardiac left lower lobe opacity, which may reflect atelectasis or consolidation. Possible trace pleural effusions.
--- NOTE | 2016-09-13 08:39 | History & Physical ---
NIKA PADILLA,[facility] 09/13/16 0839: General Information and HPI MD Statement: I have seen and personally examined CHACHO ALEXANDER and documented this H&P. The patient is a 76 year old F who presented with a patient stated chief complaint of [AMS, shortness of breath]. 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 Patient was verbal but difficult to understand. Has history was up in from the ER notes, W 10 and halfway. There was no mention of fever chills, nausea, vomiting, abdominal pain, dysuria. According to the halfway patient was at her normal self yesterday. Became more altered later during the evening and hence was sent to the ED. She was recently admitted in [facility] on 09/07/2016 for altered mental status with CAT scan showing new right MCA territory infarct, but does not have acute appearance. She was treated for aspiration pneumonia with Unasyn and was discharged on by mouth antibiotics. Had an AICD interogated at the same time and did not have any new arrhythmic events. HIDA scan was and performed in the previous admission which was negative. Allergies/Medications Allergies: Coded Allergies: STATINS (Intermediate, ACHEY HEAD TO TOE "PAIN ALL OVER BODY" 09/06/16) acetaminophen (Mild, ABDOMINAL PAIN 09/06/16) Home Med list Acetaminophen 500 MG TABLET 975 MG G TUBE Q8H PAIN (Reported) Albuterol Sulfate (Ventolin Hfa) 90 MCG HFA.AER.AD 2 PUF INH Q4-6 PRN PRN SOB (Reported) Apixaban (Eliquis) 5 MG TABLET 1 TAB PO BID AFIB (Reported) Augmentin (Augmentin 500-125 Tablet) 500 MG-125 MG TABLET 500 MG PO Q12 Infection Calcium Carbonate (Antacid) 200 MG CALCIUM (500 MG) TAB.CHEW 500 MG PO BID SUPPLEMENT (Reported) Cholecalciferol (Vitamin D3) 1,000 UNIT TABLET 1 TAB G TUBE DAILY SUPPLEMENT (Reported) Chondroitin Sulf/Glucosamine (Glucosamine & Chondroitin) 1 CAP CAP 1 CAP PO DAILY SUPPLEMENT (Reported) Reason to Stop at ADM: no alternative in the hospital Digoxin 125 MCG TABLET 65 MCG G TUBE DAILY HEART (Reported) HOLD IF HR LESS THAN 60 [DUONEB] SOB (Reported) X48 HRS, D/C ON 09/09/16. Ferrous Sulfate 325 MG (65 MG IRON) TABLET 325 MG G TUBE DAILY SUPPLEMENT ( Reported) Fluticasone Propionate (Flovent Hfa) 0.22 MG/Actuation EMERSON 2 PUFF INH BID COPD /ASTHMA (Reported) 220 MCG PER PUFF Furosemide 20 MG TABLET 1 TAB PO SEE ADMIN CRITERIA FLUID RETENTION Please take this medication twice per week: Wednesday and . Gabapentin 300 MG CAPSULE 1 CAP G TUBE QPM NEUROPATHY (Reported) Levothyroxine Sodium (Synthroid) 150 MCG TABLET 100 MCG PO DAILY HYPOTHYROID (Reported) Lorazepam (Ativan) 0.5 MG TABLET 1 TAB PO Q8H PRN ANXIETY (Reported) Metoprolol Tartrate 25 MG TABLET 25 MG PO Q8 Heart Rate Montelukast Sodium 10 MG TABLET 1 TAB PO DAILY ALLERGIES (Reported) Multivitamin (Multi-Delyn) 5 ML LIQUID 5 ML G TUBE DAILY SUPPLEMENT (Reported ) Past History Travel History Traveled to [place] past 21 day No Medical History Neurological: CVA, cva-left sided paralysis EENT: NONE Cardiovascular: AFIB, CAD, CHF, hypertension, hyperlipidemia, myocardial infarction, PCI to LAD and LCx with JUANJOSE in 2007 Respiratory: asthma Gastrointestinal: G-TUBE Hepatic: NONE Renal: chronic kidney disease Musculoskeletal: MUSCLE WEAKNESS Psychiatric: NONE Endocrine: hypothyroidism Blood Disorders: anemia Cancer(s): NONE 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 Ambulation: independent, cane Review of Systems Review of Systems Constitutional: Reports: see HPI. Exam & Diagnostic Data Last 24 Hrs of Vital Signs/I&O Vital Signs Date Time Temp Pulse Resp B/P Pulse O2 O2 Flow FiO2 Ox Delivery Rate 09/13 1107 96.5 104 22 138/78 98 Nasal 2.0L Cannula 09/13 0900 118 154/95 09/13 0819 97.2 114 20 154/95 98 Nasal 2.0L Cannula 09/13 0553 98.5 111 30 131/86 98 Nasal 2.0L Cannula 09/13 0341 97.9 128 30 133/92 94 Nasal 2.0L Cannula Intake & Output 09/13 1600 09/13 0800 09/13 0000 Intake Total Output Total 100 Balance -100 Output, Urine 100 Patient 154 lb Weight Physical Exam General Appearance Mild Distress, awake HEENT PERRLA Cardiovascular Normal S1, Normal S2, No Murmurs, irregular Lungs b/l ronchi present Abdomen Normal Bowel Sounds, Soft, PEG tube in place. site appears clean with out evidence of infection Neurological unable to perform. relfex left side was nyporeflexia. plantar reflex withdrawal to stimuli Extremities no pedal edema Last 24 Hrs of Labs/Hardy: Laboratory Tests 09/13/16 0510: Urinalysis LIGHT H, Urine Color STRAW, Urine Clarity CLEAR, Urine pH 6.0, Ur Specific [place] 1.025, Urine Protein >=300 H, Urine Ketones NEG, Urine Nitrite NEG, Urine Bilirubin NEG, Urine Urobilinogen 0.2, Ur Leukocyte Esterase NEG, Ur Microscopic SEDIMENT EXAMINED, Urine RBC 1-3, Urine WBC 3-5 H, Ur Epithelial Cells FEW, Urine Hemoglobin SMALL H, Urine Glucose NEG 09/13/16 0345: Anion Gap 16, Estimated GFR 40 L, BUN/Creatinine Ratio 33.1 H, Glucose 132 H, Calcium 9.0, Total Bilirubin 0.6, AST 246 H, ALT 330 H, Alkaline Phosphatase 103, Troponin I 0.05, Gzd-[id number] Pept [id number] H, Total Protein 6.2 L, Albumin 3.0 L, Globulin 3.2, Albumin/Globulin Ratio 0.9 L, TSH &T3 &Free T4 Intrp 3.860, CBC w Diff NO MAN DIFF REQ, RBC 4.31, MCV 95.4, MCH 30.8, RDW 13.8, MPV 10.3, Gran % 83.5 H, Lymphocytes % 6.6 L, Monocytes % 9.3, Eosinophils % 0.2, Basophils % 0.4, Absolute Granulocytes 7.1 H, Absolute Lymphocytes 0.6 L, Absolute Monocytes 0.8 H, Absolute Eosinophils 0, Absolute Basophils 0, PUBS MCHC 32.3 L Microbiology 09/13 111 URINE ROUT: Legionella Antigen - ORD 09/13 1118 URINE ROUT: Streptococcus pneumoniae Antigen (M - ORD 09/13 0350 BLOOD: Blood Culture - RECD 09/13 0345 BLOOD: Blood Culture - RECD Diagnostic Data CXR Results Retrocardiac left lower lobe opacity, which may reflect atelectasis or consolidation. Possible trace pleural effusions. Assessment/Plan Assessment: Assessment and plan 76-year-old female with past medical history of severe cardiomyopathy recurrent heart failure, assist ED with altered mental status and shortness of breath. 1. Altered mental status: Etiology unclear at this time. LFTs are elevated compared to charge in the recent past. Had an ultrasound done previously on 04/2017 that showed gallbladder contains multiple stones and sludge. These findings were present on 02/18/2016. Her bilirubin is currently within normal limits. Otherwise no evidence of cholangitis or cholecystitis. Will obtain repeat ultrasound of the abdomen and keep her nothing by mouth till then. Repeat LFTs this evening. Will hold off on antibiotics. Patient has 1 dose of ceftazidime in the ED. 2. Atrial fibrillation with heart rate under control: Patients heart rate in the ED was initially and 120s to 130s. He was started on 25 mg of metoprolol every 8 in her previous admission which we will continue. Her heart rate was better after she received her dose of metoprolol in the ED. We'll continue to monitor. Troponins on this admission was negative. Continue her home medications including digoxin and Eliquis 3. Shortness of breath: Has evidence of systolic heart failure. ProBNP is elevated X-ray did not show evidence of increased pulmonary vascular markings, but it was a portable x-ray with poor quality due to posture. We will give her 1 dose of 20 mg IV Lasix today. 4. CK D: Creatinine at baseline Will continue to monitor while she is on Lasix DNR/DNI We'll continue TF after ultrasound DVT ppx with Eliquis As Ranked By This Provider Problem List: 1. Altered mental status 2. Choledocholithiasis 3. Afib Core Measures/Miscellaneous Acute Coronary Syndrome ACS Diagnosis: No Cerebrovascular Accident CVA/TIA Diagnosis: No Congestive Heart Failure CHF Diagnosis: No Venous Thromboembolism VTE Risk Factors: Age > 40 VTE Prophylaxis Ordered Inpt: [facility] d/t: No contraindications No VTE Pharm Prophylaxis d/t: No contraindications VTE Diagnosis: No VTE Type: NONE VTE Confirmed by (Test): NONE Severe Sepsis Severe Sepsis Present: No Septic Shock Septic Shock Present: No Miscellaneous Documentation Attending Case Discussed With: RHONDA DUARTE MD Primary Care Physician: JESS OWUSU MD Patient sees these Specialists cardiology Level of Patient Care: General Medicine RHONDA DUARTE MD 09/13/16 1312: Attending MD Review Statement Attending Statement Attending MD Statement: examined this patient, discuss w/resident/PA/GEODETIC ADVISOR, agreed w/resident/PA/GEODETIC ADVISOR, discussed with family, reviewed EMR data (avail), discussed with nursing, discussed with case mgmt, reviewed images, amended to note Attending Assessment/Plan: Agree with above Discussed with daughter over the phone History as above ROS could not be obtained Exam Pt less responsive and barely arousable Cannot handle salivary secretions and visible aspiration noted Chest mild crackles abd soft mild diffuse tenderness Trace edema This is a 75-year-old lady with severe systolic dysfunction of the heart, severe cardiomegaly, paroxysmal atrial fibrillation, recurrent heart failure in the past, aortic stenosis, hypothyroidism, hypertension, hyperlipidemia, Sig gall stone pancreatitis with choledocholithiasis with enterococci bacteremia in the past with s/p ercp, pt on eloquis for afib with Coronary artery disease, status post JUANJOSE, Unfortunately had developed a larged rt mca stroke few months ago admitted to [facility] with left sided paralysis with total care and on peg tube with on off po feeding, Total care in snf, with recent worsening of over all status now returns with * Waxing and waning of consiousness with worsening mental status appears multifactorial (ongoing small vessel disease, vs new stroke, sepsis appears unlikely but has recurrent asp pna). CT head repeat shows extensive small vessel disease * SIg on off apnea and waxing and waning of consiousness with with aspiration rule out asp pna * Previous biliary sepsis with choledocholithiasis with previous stent and subsequent ercp and spincterotomy and removal of stones at [facility] in late 2015, with normal lfts now, with gall stones in the GB with nonvisualizatin of GB in HIDA could be due to spincterotomy (see GI note). Pt now has altered lfts without elevated bili or alk phos certainly could have shailesh but pts family wishes no surgical option and they wish max med care only * Prob sig central apnea without hypercarbia * PRob ongoing small vessel disease * Ischemic cardiomyopathy status post AICD, with optimization consultant lad and lcx 2007 * Atrial fibrillation on Eliquis * Essential hypertension * Moderate aortic stenosis by echocardiogram * H/o Celiac disease * Chronic systolic heart failure stable * CKD with * Hypothyroid on supp * Chronic venous insuff * Sig valvular heart disease * Asthma stable REC Keep on medical floor, no icu transfer (discussed with daughter) Hold abx for now with asp previous and if any fever etc will start iv unasyn NO need for any abd imaging, will follow blood work with lft Keep hob up Hold tube feeding D5 .45 ns at 75 cc for now Cont current meds IF pt gets worse will transition to hospice No agg rx Prog poor Discussed with daughter today and she wishes conservative care
[2016-09-13 11:44] VITALS: BP 138/72
[2016-09-13 16:57] VITALS: BP 136/84
[2016-09-13 21:45] VITALS: BP 122/70
[2016-09-13 22:15] VITALS: BP 122/70
[2016-09-13 23:51] VITALS: BP 120/68
[2016-09-14 08:00] VITALS: BP 114/68
--- NOTE | 2016-09-14 10:45 | PN- Pulmonary ---
Subjective HPI/Critical Care Issues: More awake today Still at times nonverbal Less confused Afebrile Review of symptoms could not be obtained Objective Current Medications: Current Medications Sig/Jake Start time Last Medication Dose Route Stop Time Status Admin Acetaminophen 1,000 MG Q8P PRN 09/13 1914 CAN IV Albuterol Sulfate 3 ML Q4P PRN 09/13 2145 AC INH Apixaban 5 MG BID 09/13 1000 AC 09/14 PO 0936 Cholecalciferol 1,000 IU DAILY 09/13 1000 AC 09/14 PO 0940 Dextrose/Sodium 1,000 ML Q13H 09/13 1345 DC 09/13 Chloride IV 09/14 0244 1451 Digoxin 0.065 MG DAILY 09/13 1000 AC 09/14 PO 0938 Ferrous Gluconate 325 MG DAILY 09/13 1000 AC 09/14 PO 0936 Fluticasone 2 PUF BID 09/13 1000 AC 09/14 Propionate INH 0937 Furosemide 20 MG MoTh@1000 09/14 1000 AC 09/14 PO 0940 Furosemide 20 MG ONCE ONE 09/13 1145 DC 09/13 IV 09/13 1146 1257 Gabapentin 300 MG QPM 09/13 2200 AC 09/13 PO 2101 Levothyroxine Sodium 0.1 MG DAILY AC 09/13 0920 AC 09/14 PO 0538 Lorazepam 0.5 MG Q8H PRN 09/13 0900 AC PO 09/20 0859 Metoprolol Tartrate 25 MG Q8 09/13 0855 AC 09/14 PO 0538 Montelukast Sodium 10 MG DAILY 09/13 1000 AC 09/14 PO 0940 Morphine Sulfate 2 MG DAILY PRN 09/13 1914 AC IV Laboratory Tests 09/14 09/13 0745 0510 Chemistry Sodium (137 - 145 mmol/L) 142 Potassium (3.5 - 5.1 mmol/L) 4.2 Chloride (98 - 107 mmol/L) 111 H Carbon Dioxide (22 - 30 mmol/L) 20 L Anion Gap (5 - 16) 11 BUN (7 - 17 mg/dL) 42 H Creatinine (0.5 - 1.0 mg/dL) 1.3 H Estimated GFR (>60 ml/min) 40 L BUN/Creatinine Ratio (7 - 25 %) 32.3 H Total Bilirubin (0.2 - 1.3 mg/dL) 0.8 Direct Bilirubin (< 0.4 mg/dL) 0.4 AST (14 - 36 U/L) 114 H ALT (9 - 52 U/L) 245 H Alkaline Phosphatase (<127 U/L) 69 Total Protein (6.3 - 8.2 g/dL) 5.9 L Albumin (3.5 - 5.0 g/dL) 2.8 L Urines Urinalysis LIGHT H Urine Color (YEL,AMB,STR) STRAW Urine Clarity (CLEAR) CLEAR Urine pH (5.0 - 8.0) 6.0 Ur Specific [place] (1.001 - 1.035) 1.025 Urine Protein (NEG,<30 MG/DL) >=300 H Urine Ketones (NEG) NEG Urine Nitrite (NEG) NEG Urine Bilirubin (NEG) NEG Urine Urobilinogen (0.1 - 1.0 EU/dl) 0.2 Ur Leukocyte Esterase (NEG) NEG Ur Microscopic SEDIMENT EXAMINED Urine RBC (0 - 5 /HPF) 1-3 Urine WBC (0 - 2 /HPF) 3-5 H Ur Epithelial Cells (NONE,FEW) FEW Urine Hemoglobin (NEG) SMALL H Urine Glucose (N MG/DL) NEG 09/13 0345 Chemistry Sodium (137 - 145 mmol/L) 142 Potassium (3.5 - 5.1 mmol/L) 3.8 Chloride (98 - 107 mmol/L) 106 Carbon Dioxide (22 - 30 mmol/L) 20 L Anion Gap (5 - 16) 16 BUN (7 - 17 mg/dL) 43 H Creatinine (0.5 - 1.0 mg/dL) 1.3 H Estimated GFR (>60 ml/min) 40 L BUN/Creatinine Ratio (7 - 25 %) 33.1 H Glucose (65 - 99 mg/dL) 132 H Calcium (8.4 - 10.2 mg/dL) 9.0 Total Bilirubin (0.2 - 1.3 mg/dL) 0.6 AST (14 - 36 U/L) 246 H ALT (9 - 52 U/L) 330 H Alkaline Phosphatase (<127 U/L) 103 Troponin I (< 0.11 ng/ml) 0.05 Bnk-V-Iphygedsdye Pept (<125 pg/mL) 26958 H Total Protein (6.3 - 8.2 g/dL) 6.2 L Albumin (3.5 - 5.0 g/dL) 3.0 L Globulin (1.9 - 4.2 gm/dL) 3.2 Albumin/Globulin Ratio (1.1 - 2.2 %) 0.9 L TSH &T3 &Free T4 Intrp (0.270 - 4.20 uIU/mL) 3.860 Hematology CBC w Diff NO MAN DIFF REQ WBC (4.8 - 10.8 /CUMM) 8.5 RBC (4.20 - 5.40 /CUMM) 4.31 Hgb (12.0 - 16.0 G/DL) 13.3 Hct (37 - 47 %) 41.1 MCV (81.0 - 99.0 FL) 95.4 MCH (27.0 - 31.0 PG) 30.8 RDW (11.5 - 14.5 %) 13.8 Plt Count (130 - 400 /CUMM) 178 MPV (7.4 - 10.4 FL) 10.3 Gran % (42.2 - 75.2 %) 83.5 H Lymphocytes % (20.5 - 51.1 %) 6.6 L Monocytes % (1.7 - 9.3 %) 9.3 Eosinophils % (0 - 5 %) 0.2 Basophils % (0.0 - 2.0 %) 0.4 Absolute Granulocytes (1.4 - 6.5 /CUMM) 7.1 H Absolute Lymphocytes (1.2 - 3.4 /CUMM) 0.6 L Absolute Monocytes (0.10 - 0.60 /CUMM) 0.8 H Absolute Eosinophils (0.0 - 0.7 /CUMM) 0 Absolute Basophils (0.0 - 0.2 /CUMM) 0 PUBS MCHC (33.0 - 37.0 G/DL) 32.3 L Microbiology Date/Time Procedure - Status Source Growth 09/13 1118 Legionella Antigen - CAN URINE ROUT Cancelled: Cancelled via OE: Per MD Decision 09/13 0350 Blood Culture - RECD BLOOD 09/13 0345 Blood Culture - RECD BLOOD Vital Signs & I&O Last 24 Hrs of Vitals and I&O: Vital Signs Date Time Temp Pulse Resp B/P Pulse O2 O2 Flow FiO2 Ox Delivery Rate 09/14 0938 92 114/68 09/14 0800 97.5 92 20 114/68 98 Nasal 2.0L Cannula 09/14 0538 94 120/80 09/14 0000 Nasal 3.0L Cannula 09/13 2351 97.4 82 22 120/68 100 Nasal 3.0L Cannula 09/13 2145 97.7 84 22 122/70 99 09/13 2138 96 Nasal 2.0L Cannula 09/13 2134 Nasal 3.0L Cannula 09/13 2102 120/70 09/13 1657 97.9 90 24 136/84 98 09/13 1600 96 Nasal 2.0L Cannula 09/13 1324 110 136/70 09/13 1323 110 136/70 09/13 1201 95 Nasal 3.0L Cannula 09/13 1144 97.0 112 24 138/72 96 Nasal 3.0L Cannula 09/13 1107 96.5 104 22 138/78 98 Nasal 2.0L Cannula Intake & Output 09/14 1600 09/14 0800 09/14 0000 Intake Total 660 225 Output Total Balance 660 225 Intake, IV 600 225 Intake, Tube 60 Irrigant Number 1 1 Bowel Movements Impression/Plan Impression/Plan Impression/Plan: This is a 75-year-old lady with severe systolic dysfunction of the heart, severe cardiomegaly, paroxysmal atrial fibrillation, recurrent heart failure in the past, aortic stenosis, hypothyroidism, hypertension, hyperlipidemia, Sig gall stone pancreatitis with choledocholithiasis with enterococci bacteremia in the past with s/p ercp, pt on eloquis for afib with Coronary artery disease, status post JUANJOSE, Unfortunately had developed a larged rt mca stroke few months ago admitted to [facility] with left sided paralysis with total care and on peg tube with on off po feeding, Total care in snf, with recent worsening of over all status now returns with * Waxing and waning of consiousness with worsening mental status appears multifactorial (ongoing small vessel disease, vs new stroke, sepsis appears unlikely but has recurrent asp pna). CT head repeat shows extensive small vessel disease * SIg on off apnea and waxing and waning of consiousness with with aspiration rule out asp pna, sig central apnea due to worsening ischemia of the brain * Previous biliary sepsis with choledocholithiasis with previous stent and subsequent ercp and spinct[facility] 2015, with normal lfts now, with gall stones in the GB with nonvisualizatin of GB in HIDA could be due to spincterotomy (see GI note). 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 and lcx 2007 * Atrial fibrillation on Eliquis * Essential hypertension * Moderate aortic stenosis by echocardiogram * H/o Celiac disease * Chronic systolic heart failure stable * CKD with * Hypothyroid on supp * Chronic venous insuff * Sig valvular heart disease * Asthma stable REC Keep on medical floor, no icu transfer (discussed with daughter) Hold abx for now with and if any fever etc will start iv unasyn NO need for any abd imaging, will follow blood work with lft Keep hob up REstart tube feedings slowly with free water bolus, Start at 50 percent of her baseline dose D5 .45 ns at 50cc for now, and dc when she is on tubefeeding Cont current meds IF pt gets worse will transition to hospice No agg rx Prog poor Discussed with daughter and she wishes conservative care, will consider return to snf with do not hospitalize back
--- NOTE | 2016-09-14 11:19 | PN- Housestaff ---
Subjective Follow-up For: AMS Shortness of breath Complaints: pt unable to provide hx Subjective: seen and examined patient. Does not seem in acute distress however not able to communicate. Review of Systems Constitutional: Reports: see HPI. Objective Last 24 Hrs of Vital Signs/I&O Vital Signs Date Time Temp Pulse Resp B/P Pulse O2 O2 Flow FiO2 Ox Delivery Rate 09/14 0938 92 114/68 09/14 0800 97.5 92 20 114/68 98 Nasal 2.0L Cannula 09/14 0538 94 120/80 09/14 0000 Nasal 3.0L Cannula 09/13 2351 97.4 82 22 120/68 100 Nasal 3.0L Cannula 09/13 2145 97.7 84 22 122/70 99 09/13 2138 96 Nasal 2.0L Cannula 09/13 2134 Nasal 3.0L Cannula 09/13 2102 120/70 09/13 1657 97.9 90 24 136/84 98 09/13 1600 96 Nasal 2.0L Cannula 09/13 1324 110 136/70 09/13 1323 110 136/70 09/13 1201 95 Nasal 3.0L Cannula 09/13 1144 97.0 112 24 138/72 96 Nasal 3.0L Cannula Intake & Output 09/14 1600 09/14 0800 09/14 0000 Intake Total 660 225 Output Total Balance 660 225 Intake, IV 600 225 Intake, Tube 60 Irrigant Number 1 1 Bowel Movements Physical Exam General Appearance: Alert, Oriented X3, Cooperative Cardiovascular: Normal S1, Normal S2 Lungs: Clear to Auscultation, Normal Air Movement Abdomen: Normal Bowel Sounds, Soft, No Tenderness, PEG tube in place Extremities: No Edema Current Medications: Current Medications Sig/Jake Start time Last Medication Dose Route Stop Time Status Admin Acetaminophen 1,000 MG Q8P PRN 09/13 1915 CAN IV Albuterol Sulfate 3 ML Q4P PRN 09/13 2145 AC INH Apixaban 5 MG BID 09/13 1000 AC 09/14 PO 0936 Cholecalciferol 1,000 IU DAILY 09/13 1000 AC 09/14 PO 0940 Dextrose/Sodium 1,000 ML Q13H 09/13 1345 DC 09/13 Chloride IV 09/14 0244 1451 Digoxin 0.065 MG DAILY 09/13 1000 AC 09/14 PO 0938 Ferrous Gluconate 325 MG DAILY 01/15 1000 AC 09/14 PO 0936 Fluticasone 2 PUF BID 09/13 1000 AC 09/14 Propionate INH 0937 Furosemide 20 MG MoTh@1000 09/14 1000 AC 09/14 PO 0940 Furosemide 20 MG ONCE ONE 09/13 1145 DC 09/13 IV 09/13 1146 1257 Gabapentin 300 MG QPM 09/13 2200 AC 09/13 PO 2101 Levothyroxine Sodium 0.1 MG DAILY AC 09/13 0920 AC 09/14 PO 0538 Lorazepam 0.5 MG Q8H PRN 09/13 0900 AC PO 09/20 0859 Metoprolol Tartrate 25 MG Q8 09/13 0855 AC 09/14 PO 0538 Montelukast Sodium 10 MG DAILY 09/13 1000 AC 09/14 PO 0940 Morphine Sulfate 2 MG DAILY PRN 09/13 1915 AC IV Last 24 Hrs of Lab/Hardy Results Last 24 Hrs of Labs/Mics: Laboratory Tests 09/14/16 0745: Anion Gap 11, Estimated GFR 40 L, BUN/Creatinine Ratio 32.3 H, Total Bilirubin 0.8, Direct Bilirubin 0.4, AST 114 H, ALT 245 H, Alkaline Phosphatase 69, Total Protein 5.9 L, Albumin 2.8 L Assessment/Plan Assessment: 76-year-old woman from a half-way, with past medical history of atrial fibrillation on anticoagulation, ischemic cardiomyopathy status post AICD, severe cardiomegaly, recurrent heart failure in the past, hiatal stenosis, hypertension, hyperlipidemia known CAD/stents, right MCA stroke with residual left-sided paralysis, dysphagia with PEG tube placement current admission for shortness of breath and decreased mental status. Non verbal, mild distress noted on examination Plan; AMS Continues to be unable to communicate, Afebrile overnight Family wishes no aggressive measures Atrial fibrillation Continue with Eliquis, Lopressor and digoxin Hypothyroidism Continue levothyroxine On tube feeds will resume them today DVT prophylaxis with Eliquis DNR/DNI Problem List: 1. HTN (hypertension) 2. Hypothyroid 3. Atrial fibrillation 4. Altered mental status Pain Ratin Pain Location: Not applicable Pain Goal: Pain 4 or less Pain Plan: Current regimen Tomorrow's Labs & Rationales: bep/lft
--- NOTE | 2016-09-14 16:14 | Discharge Summary ---
Visit Information Visit Dates Admission Date: 09/13/16 Discharge Date: 09/15/16 Hospital Course Course Attending Physician: GERALD PADILLA,RHONDA Kwon Primary Care Physician: UMER PADILLA,[facility] Hospital Course: This is a 75-year-old lady with severe systolic dysfunction of the heart, severe cardiomegaly, paroxysmal atrial fibrillation, recurrent heart failure in the past, aortic stenosis, hypothyroidism, hypertension, hyperlipidemia, Sig gall stone pancreatitis with choledocholithiasis with enterococci bacteremia in the past with s/p ercp, pt on eloquis for afib with Coronary artery disease, status post JUANJOSE, Unfortunately had developed a larged rt mca stroke few months ago admitted to [facility] with left sided paralysis with total care and on peg tube with on off po feeding, Total care in snf, with recent worsening of over all status now returns with 1. Waxing and waning of consiousness with worsening mental status appears multifactorial (ongoing small vessel disease, vs new stroke, sepsis appears unlikely but has recurrent asp pna). CT head repeat previous admission showed extensive small vessel disease. No aggresive managment was persued as per familys decision. 2. Signs of apnea and waxing and waning of consiousness with with aspiration rule out asp pna, sig central apnea due to worsening ischemia of the brain: Patient was kept nothing by mouth initially, watched off of antibiotics. She remained afebrile, with no evidence of leukocytosis. Tube feeds were resumed slowly on second of admission with 50% of what she takes at baseline. She tolerated very well and feeds advanced to 70 mL per hour for 12 hours from 10 AM to 10 PM. She should be maintained on cyclic feeding 3. Previous biliary sepsis with choledocholithiasis with previous stent and subsequent ercp and spincterotomy and removal of stones at [facility] in late 2015, with normal lfts now, with gall stones in the GB with nonvisualizatin of GB in HIDA could be due to spincterotomy (see GI note). Pt now has altered lfts without elevated bili or alk phos certainly could have shailesh but pts family wishes no surgical option and they wish max med care only, LFTs improving 4. Sig central apnea without hypercarbia 5. Ongoing small vessel disease 6. 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 Atrial fibrillation on Eliquis, rate remained controlled 8. Essential hypertension 9. Moderate aortic stenosis by echocardiogram done recently 10. H/o Celiac disease 11. Chronic systolic heart failure stable 12. CKD with 13. Hypothyroid on supp. 12. Chronic venous insuff 13. Sig valvular heart disease 14. Asthma stable Portion today patient prognosis is very poor. Detailed discussion was done with attending with the patient's daughter who wished to until current management and if any evidence of infection and wish conservative care. No plan for aggressive treatment. Decission was made to discharge patient to long-term care with DO NOT REHOSPITALIZE/DNR/DNI. Pateint daughter was agreeable to the plan. Allergies: Coded Allergies: STATINS (Intermediate, ACHEY HEAD TO TOE "PAIN ALL OVER BODY" 09/06/16) acetaminophen (Mild, ABDOMINAL PAIN 09/06/16) Uncoded Allergies: HMG-COA REDUCTASE INHIBITORS (09/14/16) Significant Procedures: 76-year-old female with past medical history of atrial fibrillation on anticoagulation, ischemic cardiomyopathy status post AICD, severe cardiomegaly, recurrent heart failure in the past, hiatal stenosis, hypertension, hyperlipidemia known CAD/stents, right MCA stroke with residual left-sided paralysis, dysphagia with PEG tube placement admitted from a assisted with complaints of shortness of breath and decreased mental status similar to prior to admission. Vitals and admission: Blood pressure 133/92, respirations 30, pulse 128, temperature 97.6, oxygen saturation 94% on 2 L nasal cannula. Labs and admission: WBC 8.5, hemoglobin 13.3, hematocrit 41.1, platelet 178, sodium 142, potassium 3.8, BUN 43, creatinine 1.3, proBNP 61,400 Imaging studies Chest x-ray showed retrocardiac left lower lobe opacity which may reflect atelectasis or consolidation. Possible trace pleural effusion. Pertinent Lab Results: Laboratory Tests 09/15 09/14 09/13 0715 0745 0510 Chemistry Sodium (137 - 145 mmol/L) 144 142 Potassium (3.5 - 5.1 mmol/L) 4.5 4.2 Chloride (98 - 107 mmol/L) 110 H 111 H Carbon Dioxide (22 - 30 mmol/L) 22 20 L Anion Gap (5 - 16) 12 11 BUN (7 - 17 mg/dL) 39 H 42 H Creatinine (0.5 - 1.0 mg/dL) 1.2 H 1.3 H Estimated GFR (>60 ml/min) 44 L 40 L BUN/Creatinine Ratio (7 - 25 %) 32.5 H 32.3 H Total Bilirubin (0.2 - 1.3 mg/dL) 1.0 0.8 Direct Bilirubin (< 0.4 mg/dL) 0.5 H 0.4 AST (14 - 36 U/L) 84 H 114 H ALT (9 - 52 U/L) 191 H 245 H Alkaline Phosphatase (<127 U/L) 71 69 Total Protein (6.3 - 8.2 g/dL) 6.3 5.9 L Albumin (3.5 - 5.0 g/dL) 3.1 L 2.8 L Urines Urinalysis LIGHT H Urine Color (YEL,AMB,STR) STRAW Urine Clarity (CLEAR) CLEAR Urine pH (5.0 - 8.0) 6.0 Ur Specific [place] (1.001 - 1.035) 1.025 Urine Protein (NEG,<30 MG/DL) >=300 H Urine Ketones (NEG) NEG Urine Nitrite (NEG) NEG Urine Bilirubin (NEG) NEG Urine Urobilinogen (0.1 - 1.0 EU/dl) 0.2 Ur Leukocyte Esterase (NEG) NEG Ur Microscopic SEDIMENT EXAMINED Urine RBC (0 - 5 /HPF) 1-3 Urine WBC (0 - 2 /HPF) 3-5 H Ur Epithelial Cells (NONE,FEW) FEW Urine Hemoglobin (NEG) SMALL H Urine Glucose (N MG/DL) NEG 09/13 0345 Chemistry Sodium (137 - 145 mmol/L) 142 Potassium (3.5 - 5.1 mmol/L) 3.8 Chloride (98 - 107 mmol/L) 106 Carbon Dioxide (22 - 30 mmol/L) 20 L Anion Gap (5 - 16) 16 BUN (7 - 17 mg/dL) 43 H Creatinine (0.5 - 1.0 mg/dL) 1.3 H Estimated GFR (>60 ml/min) 40 L BUN/Creatinine Ratio (7 - 25 %) 33.1 H Glucose (65 - 99 mg/dL) 132 H Calcium (8.4 - 10.2 mg/dL) 9.0 Total Bilirubin (0.2 - 1.3 mg/dL) 0.6 AST (14 - 36 U/L) 246 H ALT (9 - 52 U/L) 330 H Alkaline Phosphatase (<127 U/L) 103 Troponin I (< 0.11 ng/ml) 0.05 Ale-R-Toydydizrwf Pept (<125 pg/mL) 30573 H Total Protein (6.3 - 8.2 g/dL) 6.2 L Albumin (3.5 - 5.0 g/dL) 3.0 L Globulin (1.9 - 4.2 gm/dL) 3.2 Albumin/Globulin Ratio (1.1 - 2.2 %) 0.9 L TSH &T3 &Free T4 Intrp (0.270 - 4.20 uIU/mL) 3.860 Hematology CBC w Diff NO MAN DIFF REQ WBC (4.8 - 10.8 /CUMM) 8.5 RBC (4.20 - 5.40 /CUMM) 4.31 Hgb (12.0 - 16.0 G/DL) 13.3 Hct (37 - 47 %) 41.1 MCV (81.0 - 99.0 FL) 95.4 MCH (27.0 - 31.0 PG) 30.8 RDW (11.5 - 14.5 %) 13.8 Plt Count (130 - 400 /CUMM) 178 MPV (7.4 - 10.4 FL) 10.3 Gran % (42.2 - 75.2 %) 83.5 H Lymphocytes % (20.5 - 51.1 %) 6.6 L Monocytes % (1.7 - 9.3 %) 9.3 Eosinophils % (0 - 5 %) 0.2 Basophils % (0.0 - 2.0 %) 0.4 Absolute Granulocytes (1.4 - 6.5 /CUMM) 7.1 H Absolute Lymphocytes (1.2 - 3.4 /CUMM) 0.6 L Absolute Monocytes (0.10 - 0.60 /CUMM) 0.8 H Absolute Eosinophils (0.0 - 0.7 /CUMM) 0 Absolute Basophils (0.0 - 0.2 /CUMM) 0 PUBS MCHC (33.0 - 37.0 G/DL) 32.3 L Disposition Summary Disposition Principal Diagnosis: 1. Altered Mental status 2. Recurrent aspiration risk Additional Diagnosis: 1. Severe systolic dysfunction of the heart, severe cardiomegaly 2.paroxysmal atrial fibrillation, 3. Recurrent heart failure in the past 4. ortic stenosis 5. Hypothyroidism 6. Hypertension 7. Hyperlipidemia 8. Sig gall stone pancreatitis with choledocholithiasis with enterococci bacteremia in the past with s/p ercp 9. Coronary artery disease, status post JUANJOSE 10. Large rt mca stroke with left sided paralysis with total care and on peg tube with on off po feeding Discharge Disposition: STR Discharge Instructions General Discharge Information Code Status: Do Not Resucitate/Intubat Patient's Diet: Nephro on tube feeds Patient's Activity: As tolerated. She is bed bound Follow-Up Instructions/Appts: Pt wishes for conservative management DNR/DNI/DNH ( DO NOT REHOSPITALIZE) Medications at Discharge Discharge Medications: Stop taking the following medications: Augmentin (Augmentin 500-125 Tablet) 500 MG-125 MG TABLET ORAL EVERY 12 HOURS Qty = 14 Continue taking these medications: Montelukast Sodium (Montelukast Sodium) 10 MG TABLET 1 Tablet ORAL DAILY Qty = 90 Comments: Last Taken: 10/25/15 Time: 9 AM Fluticasone Propionate (Flovent Hfa) 0.22 MG/Actuation EMERSON 2 PUFF Inhale through mouth TWICE DAILY Qty = 1 Instructions: 220 MCG PER PUFF Comments: NOT GIVEN IN HOSPITAL Chondroitin Sulf/Glucosamine (Glucosamine & Chondroitin) 1 CAP CAP 1 Capsule ORAL DAILY Instructions: Reason to Stop at ADM: no alternative in the hospital Comments: NOT GIVEN IN HOSPITAL Ferrous Sulfate (Ferrous Sulfate) 325 MG (65 MG IRON) TABLET 325 Milligram G TUBE DAILY Comments: NOT GIVEN IN HOSPITAL Apixaban (Eliquis) 5 MG TABLET 1 Tablet ORAL TWICE DAILY Comments: Last Taken: 09/15/16 Time: 10:30 AM Levothyroxine Sodium (Synthroid) 150 MCG TABLET 100 Microgram ORAL DAILY Comments: Last Taken: 09/15/16 Time: 05:48 AM Lorazepam (Ativan) 0.5 MG TABLET 1 Tablet ORAL Q8H as needed for ANXIETY Comments: NOT GIVEN IN HOSPITAL [DUONEB] Inhale Solution via Nebulizer THREE TIMES DAILY Instructions: X48 HRS, D/C ON 09/09/16. Comments: NOT GIVEN IN HOSPITAL Albuterol Sulfate (Ventolin Hfa) 90 MCG HFA.AER.AD 2 Puff Inhale through mouth EVERY 4-6 HOURS NEEDED as needed for SOB Comments: NOT GIVEN IN HOSPITAL Digoxin (Digoxin) 125 MCG TABLET 65 Microgram G TUBE DAILY Instructions: HOLD IF HR LESS THAN 60 Comments: Last Taken: 09/15/16 Time: 10:30 AM Multivitamin (Multi-Delyn) 5 ML LIQUID 5 Milliliters G TUBE DAILY Comments: NOT GIVEN IN HOSPITAL Cholecalciferol (Vitamin D3) 1,000 UNIT TABLET 1 Tablet G TUBE DAILY Comments: Last Taken: 09/15/16 Time: 10:30 AM Gabapentin (Gabapentin) 300 MG CAPSULE 1 Capsule G TUBE Every night Comments: Last Taken: 09/14/16 Time: 8:40 PM Calcium Carbonate (Antacid) 200 MG CALCIUM (500 MG) TAB.CHEW 500 Milligram ORAL TWICE DAILY Comments: NOT GIVEN IN HOSPITAL Acetaminophen (Acetaminophen) 500 MG TABLET 975 Milligram G TUBE Q8H Comments: NOT GIVEN IN HOSPITAL Metoprolol Tartrate (Metoprolol Tartrate) 25 MG TABLET 25 Milligram ORAL EVERY 8 HOURS Qty = 90 Comments: Last Taken: 09/15/16 Time: 05:30 AM Furosemide (Furosemide) 20 MG TABLET 1 Tablet ORAL SEE INSTRUCTIONS Qty = 10 Instructions: Please take this medication twice per week: Wednesday and . Comments: Last Taken: 09/14/16 Time: 09:40 AM Copies To: JESS OWUSU MD
[2016-09-14 16:31] VITALS: BP 110/64
[2016-09-14 20:42] VITALS: BP 122/68
[2016-09-14 23:47] VITALS: BP 122/62
--- NOTE | 2016-09-15 07:20 | PN- Housestaff ---
Subjective Follow-up For: AMS Shortness of breath Subjective: Patient seen and examined. She is seen lying flat in bed resting comfortably. She appears to be in no acute distress. She is not cooperative with interview and simply falls back asleep when spoken to. Review of systems is unobtainable. No overnight events reported. Review of Systems Constitutional: Reports: see HPI. Objective Last 24 Hrs of Vital Signs/I&O Vital Signs Date Time Temp Pulse Resp B/P Pulse O2 O2 Flow FiO2 Ox Delivery Rate 09/15 1357 Nasal 2.0L Cannula 09/15 1030 91 118/80 09/15 0847 97.3 91 20 118/80 99 Nasal 2.0L Cannula 09/15 0826 96 Nasal 2.0L Cannula 09/15 0800 Nasal 3.0L Cannula 09/15 0537 120/64 09/15 0000 96 Nasal 3.0L Cannula 09/14 2347 97.8 82 22 122/62 98 09/14 2042 86 122/68 09/14 2042 86 122/68 Intake & Output 09/15 1600 09/15 0800 09/15 0000 Intake Total 140 Output Total Balance 140 Intake, Oral 0 Intake, Tube 90 Feeding Intake, Tube 50 Irrigant Physical Exam General Appearance: No Acute Distress Other Physical Findings: General - elderly somnolent woman in no acute distress HEENT - NCAT CVS - S1, S2 w/o m/g/r Resp - CTA bilaterally GI - soft, nontender, nondistended Neuro - somnolent and lethargic, limited neurologic exam Extremities - no bilaterally lower extremity edema, distal pulses 2+ Current Medications: Current Medications Sig/Jake Start time Last Medication Dose Route Stop Time Status Admin Albuterol Sulfate 3 ML Q4P PRN 09/13 2144 DCD INH Apixaban 5 MG BID 09/13 1000 DCD 09/15 PO 1030 Cholecalciferol 1,000 IU DAILY 09/13 1000 DCD 09/15 PO 1029 Digoxin 0.065 MG DAILY 09/13 1000 DCD 09/15 PO 1030 Ferrous Gluconate 325 MG DAILY 09/13 1000 DCD 09/14 PO 0936 Fluticasone 2 PUF BID 09/13 1000 DCD 09/14 Propionate INH 0937 Furosemide 20 MG MoTh@1000 09/14 1000 DCD 09/14 PO 0940 Gabapentin 300 MG QPM 09/13 2200 DCD 09/14 PO 2039 Levothyroxine Sodium 0.1 MG DAILY AC 09/13 0920 DCD 09/15 PO 0538 Lorazepam 0.5 MG Q8H PRN 09/13 0900 DCD PO 09/20 0859 Metoprolol Tartrate 25 MG Q8 09/13 0855 DCD 09/15 PO 0537 Montelukast Sodium 10 MG DAILY 09/13 1000 DCD 09/15 PO 1029 Morphine Sulfate 2 MG DAILY PRN 09/13 1915 DCD IV Last 24 Hrs of Lab/Hardy Results Last 24 Hrs of Labs/Mics: Laboratory Tests 09/15/16 0715: Anion Gap 12, Estimated GFR 44 L, BUN/Creatinine Ratio 32.5 H, Total Bilirubin 1.0, Direct Bilirubin 0.5 H, AST 84 H, ALT 191 H, Alkaline Phosphatase 71, Total Protein 6.3, Albumin 3.1 L Assessment/Plan Assessment: Patient seems confused and only mumbles when asked questions. She is able to move only one arm freely and otherwise can only communicate with nods. Family discusstion determined that patient should have no aggressive measures taken in regards to her health. She is to be discharged back to her ECF facility with instruction to do not rehospitalize. Altered Mental Status Continues to be unable to communicate Afebrile overnight Family wishes no aggressive measures Atrial fibrillation - Continue with Eliquis, Lopressor and digoxin Hypothyroidism - stable, continue levothyroxine Diet - tube feeds DVT prophylaxis - Eliquis Code Status - DNR/DNI Problem List: 1. Altered mental status Pain Ratin Pain Location: None Pain Goal: Remain pain free Pain Plan: As noted in plan Tomorrow's Labs & Rationales: None
[2016-09-15 08:47] VITALS: BP 118/80
--- NOTE | 2016-09-15 10:18 | PN- Pulmonary ---
Subjective HPI/Critical Care Issues: Doing about the same Afebrile off abx Non verbal today Objective Current Medications: Current Medications Sig/Jake Start time Last Medication Dose Route Stop Time Status Admin Albuterol Sulfate 3 ML Q4P PRN 09/13 2145 AC INH Apixaban 5 MG BID 09/13 1000 AC 09/14 PO 2039 Cholecalciferol 1,000 IU DAILY 09/13 1000 AC 09/14 PO 0940 Digoxin 0.065 MG DAILY 09/13 1000 AC 09/14 PO 0938 Ferrous Gluconate 325 MG DAILY 09/13 1000 AC 09/14 PO 0936 Fluticasone 2 PUF BID 09/13 1000 AC 09/14 Propionate INH 0937 Furosemide 20 MG MoTh@1000 09/14 1000 AC 09/14 PO 0940 Gabapentin 300 MG QPM 09/13 2200 AC 09/14 PO 2039 Levothyroxine Sodium 0.1 MG DAILY AC 09/13 0920 AC 09/15 PO 0538 Lorazepam 0.5 MG Q8H PRN 09/13 0900 AC PO 09/20 0859 Metoprolol Tartrate 25 MG Q8 09/13 0855 AC 09/15 PO 0537 Montelukast Sodium 10 MG DAILY 09/13 1000 AC 09/14 PO 0940 Morphine Sulfate 2 MG DAILY PRN 09/13 1915 AC IV Vital Signs & I&O Last 24 Hrs of Vitals and I&O: Vital Signs Date Time Temp Pulse Resp B/P Pulse O2 O2 Flow FiO2 Ox Delivery Rate 09/15 0847 97.3 91 20 118/80 99 Nasal 2.0L Cannula 09/15 0826 96 Nasal 2.0L Cannula 09/15 0537 120/64 09/15 0000 96 Nasal 3.0L Cannula 09/14 2347 97.8 82 22 122/62 98 09/14 2042 86 122/68 09/14 2042 86 122/68 09/14 1631 96.9 88 22 110/64 98 Nasal 2.0L Cannula 09/14 1612 99 Nasal 2.0L Cannula 09/14 1400 92 114/68 09/14 1224 95 Nasal 2.0L Cannula Intake & Output 09/15 1600 09/15 0800 09/15 0000 Intake Total 140 Output Total Balance 140 Intake, Oral 0 Intake, Tube 90 Feeding Intake, Tube 50 Irrigant Impression/Plan Impression/Plan Impression/Plan: This is a 75-year-old lady with severe systolic dysfunction of the heart, severe cardiomegaly, paroxysmal atrial fibrillation, recurrent heart failure in the past, aortic stenosis, hypothyroidism, hypertension, hyperlipidemia, Sig gall stone pancreatitis with choledocholithiasis with enterococci bacteremia in the past with s/p ercp, pt on eloquis for afib with Coronary artery disease, status post JUANJOSE, Unfortunately had 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 CT head repeat shows extensive small vessel disease * SIg on off apnea and waxing and waning of consiousness with with aspiration rule out asp pna, sig central apnea due to worsening ischemia of the brain * Previous biliary sepsis with choledocholithiasis with previous stent and subsequent ercp and spincterotomy and removal of stones at [facility] in late 2015, with normal lfts now, with gall stones in the GB with nonvisualizatin of GB in HIDA could be due to spincterotomy (see GI note). Pt now has altered lfts without elevated bili or alk phos certainly could have shailesh but pts family wishes no surgical option and they wish max med care only, LFTs improving * Sig central apnea without hypercarbia * Ongoing small vessel disease * Ischemic cardiomyopathy status post AICD, with artist's representative lad and lcx 2007 * Atrial fibrillation on Eliquis * Essential hypertension * Moderate aortic stenosis by echocardiogram * H/o Celiac disease * Chronic systolic heart failure stable * CKD with * Hypothyroid on supp * Chronic venous insuff * Sig valvular heart disease * Asthma stable REC Ok to snf Discussed with Daughter Please write in dc summary and w10 that pt is to be not hospitalize. (DO NOT HOSPITALIZE) Keep in long-term care Can receive all current rx If she has any evidence of infection family wishes very conservative care and they are ok with antibiotics empirically at ltc Keep hob up Cont tube feeds No agg rx Prog poor Discussed with daughter And dc to LTC with [facility] (do not hospitalize order, dnr and dni)
[2016-09-15 10:30] VITALS: BP 118/80
--- NOTE | 2016-09-15 11:10 | Patient Discharge Instructions ---
Discharge Instructions General Discharge Information Special Instructions: Continue all your previous medications. Continue tube feeds. As discussed per patients family, she is NOT TO BE REHOSPITALIZED. Acute Coronary Syndrome Inclusion Criteria At DC or during hospital stay patient has or had the following: ACS DIAGNOSIS No Discharge Core Measures Meds if any: Prescribed or Continued at Discharge Meds if any: NOT Prescribed or Continued at Discharge Congestive Heart Failure Inclusion Criteria At DC or during hospital stay patient has or had the following: CHF DIAGNOSIS No Discharge Core Measures Meds if any: Prescribed or Continued at Discharge Meds if any: NOT Prescribed or Continued at Discharge Cerebrovascular accident Inclusion Criteria At DC or during hospital stay patient has or had the following: CVA/TIA Diagnosis No Discharge Core Measures Meds if any: Prescribed or Continued at Discharge Meds if any: NOT Prescribed or Continued at Discharge No Antithrombotic d/t Pt Refused Treatment Venous thromboembolism Inclusion Criteria VTE Diagnosis No VTE Type NONE VTE Confirmed by (Test) NONE Discharge Core Measures - Per Current guidelines, there needs to be overlap - treatment for the first 5 days of Warfarin therapy. - If discharged on Warfarin prior to 5 days of - overlap therapy, the patient will need to be - assessed for post discharge needs including - *Post discharge parental anticoagulation - *Warfarin and/or parental anticoagulation education - *Follow up date to check INR post discharge At least 5 days overlap therapy as Inpatient No Meds if any: Prescribed or Continued at Discharge Note: Overlap Therapy is Warfarin and Anticoagulant Meds if any: NOT Prescribed or Continued at Discharge
== END 2016-09-15 15:00 | DRG 948 ==
LOC: ENRESERVDT → ENRESERVTM → ERH 03:33 → 2NB 06:14 → ERHI 06:14 → ENPENDDIS 06:14 → 2NB 11:22
PROVIDERS: Emergency Medicine; ADMIT Internal Medicine Pulmonary Disease
DX: R41.82 Altered mental status, unspecified (principal); I13.0 Hypertensive heart and chronic kidney disease with heart failure and stage 1 through stage 4 chronic kidney disease, or unspecified chronic kidney disease; I50.22 Chronic systolic (congestive) heart failure; I69.354 Hemiplegia and hemiparesis following cerebral infarction affecting left non-dominant side; I25.5 Ischemic cardiomyopathy; N18.9 Chronic kidney disease, unspecified; Z79.01 Long term (current) use of anticoagulants; E78.5 Hyperlipidemia, unspecified; I25.10 Atherosclerotic heart disease of native coronary artery without angina pectoris; I25.2 Old myocardial infarction; I87.2 Venous insufficiency (chronic) (peripheral); J45.909 Unspecified asthma, uncomplicated; I48.0 Paroxysmal atrial fibrillation; I35.0 Nonrheumatic aortic (valve) stenosis; I69.391 Dysphagia following cerebral infarction; R13.10 Dysphagia, unspecified
CPT/HCPCS: 2NBSP; 36415; 81001; 82436; 87040; 87449; 87450; 93005; 93010; J0131; J1940; J3490; J7042